=== PATIENT | female | born 1935 | race Caucasian/White ===

== ENCOUNTER 2019-02-16 12:06 | Inpatient (IN) | payer MEDICARE, OTHER ==
[2019-02-16 12:44] LABS: ABSOLUTE BASOPHILS # (AUTO) 0.1 10^3/uL (0.0-0.2); ABSOLUTE EOSINOPHILS # (AUTO) 0.2 10^3/uL (0.0-0.6); ABSOLUTE LYMPHOCYTES (AUTO) 1.6 10^3/uL (0.5-4.7); ABSOLUTE MONOCYTES (AUTO) 1.1 10^3/uL (0.1-1.4); ABSOLUTE NEUT (AUTO) 7.6 10^3/uL (1.7-8.2); BASOPHILS % (AUTO) 0.8 % (0-2); EOSINOPHILS % (AUTO) 2.3 % (0-6); HEMATOCRIT 25.4 % (36.0-47.0); HEMOGLOBIN 8.5 g/dL (12.0-15.5); LYMPHOCYTES % (AUTO) 15.4 % (13-45); MEAN CORPUSCULAR HEMOGLOBIN 30.2 pg (27.0-33.4); MEAN CORPUSCULAR HGB CONC 33.4 g/dL (32.0-36.0); MEAN CORPUSCULAR VOLUME 90 fl (80-97); MONOCYTES % (AUTO) 10.3 % (3-13); PLATELET COUNT 516 10^3/uL (150-450); RED BLOOD COUNT 2.81 10^6/uL (3.72-5.28); RED CELL DISTRIBUTION WIDTH 13.6 % (11.5-14.0); SEGMENTED NEUTROPHILS % (AUTO) 71.2 % (42-78); TOTAL CELLS COUNTED % (AUTO) 100 %; WHITE BLOOD COUNT 10.7 10^3/uL (4.0-10.5)
--- NOTE | 2019-02-16 12:58 | RADIOLOGY REPORT (SQ) ---
EXAM DESCRIPTION: CHEST SINGLE VIEW COMPLETED DATE/TIME: 02/16/2019 12:39 pm REASON FOR STUDY: bed 12 sob COMPARISON: None. EXAM PARAMETERS: NUMBER OF VIEWS: One view. TECHNIQUE: Single frontal radiographic view of the chest acquired. RADIATION DOSE: NA LIMITATIONS: None. FINDINGS: LUNGS AND PLEURA: Upper lobes are hyperlucent from obstructive disease. Few Herber lines at both lung bases worrisome for fluid overload or congestive failure. No pulmonary edema or dense consolidation worrisome for pneumonia. No pleural effusions or pneumotho rax. MEDIASTINUM AND HILAR STRUCTURES: No masses. Contour normal. HEART AND VASCULAR STRUCTURES: Heart normal in size. Normal vasculature. BONES: No acute findings. HARDWARE: None in the chest. OTHER: No other significant finding. IMPRESSION: Mild fluid overload or congestive failure TECHNICAL DOCUMENTATION: JOB ID: [id number] [employer]- All Rights Reserved Reading location - IP/workstation name: [email or web address]
[2019-02-16 13:10] LABS: ALANINE AMINOTRANSFERASE 25 U/L (9-52); ALBUMIN 3.2 g/dL (3.5-5.0); ALKALINE PHOSPHATASE 79 U/L (38-126); ANION GAP 7 (5-19); ASPARTATE AMINO TRANSFERASE 32 U/L (14-36); BILIRUBIN,DIRECT 0.3 mg/dL (0.0-0.4); BILIRUBIN,TOTAL 0.5 mg/dL (0.2-1.3); BLOOD UREA NITROGEN 14 mg/dL (7-20); CALCIUM 8.2 mg/dL (8.4-10.2); CARBON DIOXIDE 25 mmol/L (22-30); CHLORIDE 100 mmol/L (98-107); CREATINE KINASE 89 U/L (30-135); GLUCOSE 100 mg/dL (75-110); POTASSIUM 4.1 mmol/L (3.6-5.0); SODIUM 132.4 mmol/L (137-145); TOTAL PROTEIN 5.9 g/dL (6.3-8.2)
[2019-02-16 13:20] LABS: CREATINE KINASE MB 1.13 ng/mL (<4.55)
[2019-02-16 13:24] LABS: TROPONIN I < 0.012 ng/mL
[2019-02-16] MEDS ORDERED: DIPHENHYDRAMINE HCL 50 MG/ML VIAL IV ONE (14:56)
[2019-02-16] MEDS ORDERED: PROCHLORPERAZINE EDISYLATE INJ 10 MG/2 ML VIAL IV ONE (14:56)
[2019-02-16] MEDS ORDERED: MAGNESIUM SULFATE/D5W 1 GM/100 ML RTUPB IV ONE (14:56)
[2019-02-16 16:37] LABS: APPEARANCE,URINE CLEAR; BILIRUBIN,URINE NEGATIVE (NEGATIVE); COLOR,URINE STRAW; GLUCOSE, URINE NEGATIVE (NEGATIVE); KETONES,URINE NEGATIVE (NEGATIVE); LEUKOCYTE ESTERASE,URINE NEGATIVE (NEGATIVE); NITRITE,URINE NEGATIVE (NEGATIVE); PROTEIN,URINE NEGATIVE (NEGATIVE); UROBILINOGEN,URINE NEGATIVE mg/dL (<2.0)
[2019-02-16 16:38] LABS: URINE SPECIFIC GRAVITY 1.003
[2019-02-16] MEDS ORDERED: PANTOPRAZOLE SODIUM 40 MG VIAL IV ONE (17:10)
[2019-02-16] MEDS ORDERED: MAG HYDROX/AL HYDROX/SIMETH SUSP 30 ML UDCUP PO ONE (17:10)
--- NOTE | 2019-02-16 18:15 | ER Document Report ---
Entered by FREDERICK PETE SCRIBE 02/16/19 1454 Acting as scribe for:MEIR GARDINER MD ED Respiratory Problem - General Chief Complaint: Shortness Of Breath Stated Complaint: SHORTNESS OF BREATH Time Seen by Provider: 02/16/19 14:37 Primary Care Provider: DAVIS SEGAL MD [Primary Care Provider] - Follow up as needed Information source: Patient Notes: 83 year old female that presents to the emergency department today with complaints of "muscle cramps all over" this morning which has now eased off. Patient reports she has had a headache pretty consistently for the last few weeks along with a low-grade temperature reaching as high as 101 F. Patient states she has had intermittent dizziness and a non-productive cough. - Related Data Allergies/Adverse Reactions: ciprofloxacin Allergy (Verified 02/16/19 13:23) clindamycin Allergy (Verified 02/16/19 13:23) codeine Allergy (Verified 02/16/19 13:23) oxycodone [From OxyContin] Allergy (Verified 02/16/19 13:23) Penicillins Allergy (Verified 02/16/19 13:23) propoxyphene [From Darvon] Allergy (Verified 02/16/19 13:23) Sulfa (Sulfonamide Antibiotics) Allergy (Verified 02/16/19 13:23) trovafloxacin [From Trovan] Allergy (Verified 02/16/19 13:23) Past Medical History - General Information source: Patient - Social History Smoking Status: Current Every Day Smoker - Stopped smoking heavily in 1989. "closet smoker" now per family Cigarette use (# per day): Yes - Family reports she still sneaks cigarettes Chew tobacco use (# tins/day): No Smoking Education Provided: No Frequency of alcohol use: None Drug Abuse: None Lives with: Family Family History: Reviewed & Not Pertinent - Past Medical History Cardiac Medical History: Reports: Hx Coronary Artery Disease, Hx Heart Attack - 11/10/2018, Hx Hypercholesterolemia Pulmonary Medical History: Reports: Hx COPD Past Surgical History: Reports: Hx Appendectomy, Hx Cardiac Catheterization, Hx Cholecystectomy, Hx Coronary Stent, Hx Orthopedic Surgery - anterior cervical fusion, cataract sx, Hx Tubal Ligation, Other - Lung resection secondary to CA Review of Systems - Review of Systems Constitutional: See HPI, Fever EENT: See HPI, Nose congestion Cardiovascular: See HPI, Dizziness Respiratory: See HPI, Cough Gastrointestinal: No symptoms reported Genitourinary: No symptoms reported Female Genitourinary: No symptoms reported Musculoskeletal: See HPI, Muscle stiffness - cramping all over, Neck pain Skin: No symptoms reported Hematologic/Lymphatic: No symptoms reported Neurological/Psychological: See HPI, Headaches, Numbness - facial -: Yes All other systems reviewed and negative Physical Exam - Vital signs Vitals: Pulse Ox 94 02/16/19 12:07 - HEENT Head: Normocephalic, Atraumatic Eyes: Normal, Pale conjunctiva Pupils: PERRL Neck: Other - Left posterior cervical muscles are quite tender to palpate reproducing her left-sided headache. - Respiratory Respiratory status: No respiratory distress Chest status: Nontender - There is no tenderness to palpate the left anterior chest wall. Breath sounds: Rhonchi, Wheezing - There is some wheezes and rhonchi with forced cough. Patient states her breathing at this time is close to her baseline. - Cardiovascular Rhythm: Regular Heart sounds: Normal auscultation Murmur: No - Abdominal Inspection: Normal Distension: No distension Bowel sounds: Normal - Rectal Stool: Black - Stool Hemoccult was collected by the nurse. She reports the stool was black tarry appearing., See lab result - Stool Hemoccult testing was positive. - Back Back: Normal - Extremities General upper extremity: Normal inspection General lower extremity: Normal inspection - Neurological Neuro grossly intact: Yes - Psychological Associated symptoms: Normal affect, Normal mood - Skin Skin Temperature: Warm Skin Moisture: Dry Skin Color: Normal Course - Vital Signs Vital signs: Temp Pulse Resp BP Pulse Ox 97.9 F 18 113/77 95 02/16/19 12:23 02/16/19 16:01 02/16/19 16:01 02/16/19 16:01 - Laboratory Result Diagrams: 02/16/19 12:30 02/16/19 12:30 Laboratory results interpreted by me: 02/16/19 02/16/19 12:30 12:30 WBC 10.7 H RBC 2.81 L Hgb 8.5 L Hct 25.4 L Plt Count 516 H Sodium 132.4 L Calcium 8.2 L Total Protein 5.9 L Albumin 3.2 L - EKG Interpretation by Ar EKG shows normal: Sinus rhythm, [place], Intervals, ST-T Waves. abnormal: QRS Complexes - Line inferior Q waves Rate: Normal - 84 Rhythm: NSR [place]/QRS: RBBB - Incomplete right bundle branch block When compared to previous EKG there are: Previous EKG unavailable - Consults Ya Padgett NP Time consulted: 17:10 Consulted provider: will come to ER Critical Care Note - Critical Care Note Total time excluding time spent on procedures (mins): 35 Discharge - Discharge Clinical Impression: Acute exacerbation of chronic obstructive pulmonary disease (COPD), Blood loss anemia, Upper GI bleed Tension type headache Qualifiers: Headache chronicity pattern: unspecified pattern Intractability: not intractable Qualified Code(s): G44.209 - Tension-type headache, unspecified, not intractable Condition: Stable Disposition: ADMITTED INPATIENT Admitting Provider: Buffy (Hospitalist) Unit Admitted: Telemetry Referrals: DAVIS SEGAL MD [Primary Care Provider] - Follow up as needed Scribe Attestation: 02/16/19 17:35 I personally performed the services described in the documentation, reviewed and edited the documentation which was dictated to the scribe in my presence, and it accurately records my words and actions. I personally performed the services described in the documentation, reviewed and edited the documentation which was dictated to the scribe in my presence, and it accurately records my words and actions.
[2019-02-16] MEDS ORDERED: DEXTROSE 50%-WATER 25 GM/50 ML DISP.SYRIN IV PRN ×4 (19:12→20:42)
[2019-02-16] MEDS ORDERED: DEXTROSE 40% GEL 15 GM TUBE PO PRN ×4 (19:12→20:42)
[2019-02-16] MEDS ORDERED: GLUCAGON,HUMAN RECOMB 1 MG INJ SUBCUT PRN ×2 (19:12→20:42)
[2019-02-16] MEDS ORDERED: MAG HYDROX/AL HYDROX/SIMETH SUSP 30 ML UDCUP PO PRN (19:12)
--- NOTE | 2019-02-16 19:24 | EKG REPORT ---
SEVERITY:- ABNORMAL ECG - SINUS RHYTHM INCOMPLETE RIGHT BUNDLE BRANCH BLOCK : Confirmed by: Erica Gallo MD 16-Feb-2019 19:23:49
--- NOTE | 2019-02-16 19:31 | PDOC H&P ---
History of Present Illness Admission Date/PCP: 02/16/19 18:21 DAVIS SEGAL MD Patient complains of: shortness of breath History of Present Illness: PAXTON ROGER is a 83 year old female with a past medical history significant for COPD, recent CA with one stent placed in November of this year, GERD, and obesity who presented to the emergency department today with a complaint of progressively worsening shortness of breath, fatigue, and generalized weakness. Evaluation in the emergency department revealed mild anemia (hemoglobin 8.5), WBC 10.5, thombocytosis 516 (like r/t recent cath and stent placement), unremarkable chemistry with normal troponin and proBNP, Normal urine, but positive occult stool. The patient was noted to desaturate to 87% while resting on room air; she is not home O2 dependent. She is noted to have rhonchi and slight wheezing today. She is referred to the hospitalist service for admission and work-up of GI bleed and mild COPD exacerbation. Past Medical History Cardiac Medical History: Reports: Congestive Heart Failure, Coronary Artery Disease, Myocardial Infarction - 11/10/2018, Hyperlipidema Pulmonary Medical History: Reports: Asthma, Chronic Obstructive Pulmonary Disease (COPD) EENT Medical History: Reports: None Neurological Medical History: Reports: None Endocrine Medical History: Reports: Obesity Renal/ Medical History: Reports: None Malignancy Medical History: Reports: None GI Medical History: Reports: None Musculoskeltal Medical History: Reports: None Skin Medical History: Reports: None Psychiatric Medical History: Reports: None Traumatic Medical History: Reports: None Hematology: Reports: None Infectious Medical History: Reports: None Past Surgical History Past Surgical History: Reports: Appendectomy, Cardiac Catheterization, Cholecystectomy, Coronary Stent, Orthopedic Surgery - anterior cervical fusion, cataract sx, Tubal Ligation, Other - Lung resection secondary to CA Social History Information Source: Patient Lives with: Family Smoking Status: Former Smoker Frequency of Alcohol Use: None Hx Recreational Drug Use: No Drugs: None Hx Prescription Drug Abuse: No - Advance Directive Resuscitation Status: Full Code Surrogate healthcare decision maker:: Patient's children Family History Family History: Reviewed & Not Pertinent Parental Family History Reviewed: Yes Children Family History Reviewed: Yes Sibling(s) Family History Reviewed.: Yes Medication/Allergy Allergies/Adverse Reactions: ciprofloxacin Allergy (Verified 02/16/19 13:23) clindamycin Allergy (Verified 02/16/19 13:23) codeine Allergy (Verified 02/16/19 13:23) oxycodone [From OxyContin] Allergy (Verified 02/16/19 13:23) Penicillins Allergy (Verified 02/16/19 13:23) propoxyphene [From Darvon] Allergy (Verified 02/16/19 13:23) Sulfa (Sulfonamide Antibiotics) Allergy (Verified 02/16/19 13:23) trovafloxacin [From Trovan] Allergy (Verified 02/16/19 13:23) Review of Systems Constitutional: PRESENT: fatigue, weakness. ABSENT: chills, fever(s), he adache(s), weight gain, weight loss Eyes: ABSENT: visual disturbances Ears: ABSENT: hearing changes Cardiovascular: ABSENT: chest pain, dyspnea on exertion, edema, orthropnea, palpitations Respiratory: PRESENT: cough, dyspnea. ABSENT: hemoptysis Gastrointestinal: PRESENT: melena. ABSENT: abdominal pain, constipation, diarrhea, hematemesis, hematochezia, nausea, vomiting Genitourinary: ABSENT: dysuria, hematuria Musculoskeletal: ABSENT: joint swelling Integumentary: ABSENT: rash, wounds Neurological: ABSENT: abnormal gait, abnormal speech, confusion, dizziness, focal weakness, syncope Psychiatric: ABSENT: anxiety, depression, homidical ideation, suicidal ideation Endocrine: ABSENT: cold intolerance, heat intolerance, polydipsia, polyuria Hematologic/Lymphatic: ABSENT: easy bleeding, easy bruising Physical Exam Vital Signs: Temp Pulse Resp BP Pulse Ox 97.7 F 71 17 113/63 95 02/16/19 18:56 02/16/19 18:29 02/16/19 18:12 02/16/19 18:29 02/16/19 18:12 Intake & Output 02/15/19 02/16/19 02/17/19 06:59 06:59 06:59 Intake Total 100 Balance 100 Weight 70.76 kg General appearance: PRESENT: no acute distress, cooperative, obese, well- developed, well-nourished Head exam: PRESENT: atraumatic, normocephalic Eye exam: PRESENT: conjunctiva pink, EOMI, PERRLA. ABSENT: scleral icterus Ear exam: PRESENT: normal external ear exam Mouth exam: PRESENT: moist, tongue midline Neck exam: ABSENT: carotid bruit, JVD, lymphadenopathy, thyromegaly Respiratory exam: PRESENT: rhonchi, symmetrical, unlabored, wheezes. ABSENT: rales Cardiovascular exam: PRESENT: RRR, +S1, +S2. ABSENT: diastolic murmur, rubs, systolic murmur Pulses: PRESENT: normal dorsalis pedis pul Vascular exam: PRESENT: normal capillary refill GI/Abdominal exam: PRESENT: normal bowel sounds, soft. ABSENT: distended, guarding, mass, organolmegaly, rebound, tenderness Rectal exam: PRESENT: heme (+) stool Extremities exam: PRESENT: full ROM. ABSENT: calf tenderness, clubbing, pedal edema Neurological exam: PRESENT: alert, awake, oriented to person, oriented to place, oriented to time, oriented to situation, CN II-XII grossly intact. ABSENT: motor sensory deficit Psychiatric exam: PRESENT: appropriate affect, normal mood. ABSENT: homicidal ideation, suicidal ideation Skin exam: PRESENT: dry, intact, warm. ABSENT: cyanosis, rash Results Laboratory Results: 02/16/19 12:30 02/16/19 12:30 02/16/19 02/16/19 02/16/19 12:30 12:30 12:30 WBC 10.7 H RBC 2.81 L Hgb 8.5 L Hct 25.4 L MCV 90 MCH 30.2 MCHC 33.4 RDW 13.6 Plt Count 516 H Seg Neutrophils % 71.2 Lymphocytes % 15.4 Monocytes % 10.3 Eosinophils % 2.3 Basophils % 0.8 Absolute Neutrophils 7.6 Absolute Lymphocytes 1.6 Absolute Monocytes 1.1 Absolute Eosinophils 0.2 Absolute Basophils 0.1 Sodium 132.4 L Potassium 4.1 Chloride 100 Carbon Dioxide 25 Anion Gap 7 BUN 14 Creatinine 0.79 Est GFR ( Amer) > 60 Est GFR (Non-Af Amer) > 60 Glucose 100 Calcium 8.2 L Magnesium 1.8 Total Bilirubin 0.5 AST 32 ALT 25 Alkaline Phosphatase 79 Total Protein 5.9 L Albumin 3.2 L Urine Color Urine Appearance Urine pH Ur Specific [place] Urine Protein Urine Glucose (UA) Urine Ketones Urine Blood Urine Nitrite Ur Leukocyte Esterase Urine RBC (Auto) Blood Type Antibody Screen 02/16/19 02/16/19 16:21 17:56 WBC RBC Hgb Hct MCV MCH MCHC RDW Plt Count Seg Neutrophils % Lymphocytes % Monocytes % Eosinophils % Basophils % Absolute Neutrophils Absolute Lymphocytes Absolute Monocytes Absolute Eosinophils Absolute Basophils Sodium Potassium Chloride Carbon Dioxide Anion Gap BUN Creatinine Est GFR ( Amer) Est GFR (Non-Af Amer) Glucose Calcium Magnesium Total Bilirubin AST ALT Alkaline Phosphatase Total Protein Albumin Urine Color STRAW Urine Appearance CLEAR Urine pH 6.0 Ur Specific [place] 1.003 Urine Protein NEGATIVE Urine Glucose (UA) NEGATIVE Urine Ketones NEGATIVE Urine Blood NEGATIVE Urine Nitrite NEGATIVE Ur Leukocyte Esterase NEGATIVE Urine RBC (Auto) 1 Blood Type O POSITIVE Antibody Screen NEGATIVE 02/16/19 02/16/19 02/16/19 12:30 12:30 12:30 Creatine Kinase 89 CK-MB (CK-2) 1.13 Troponin I < 0.012 NT-Pro-B Natriuret Pep 284 Impressions: Chest X-Ray 02/16/19 12:07 IMPRESSION: Mild fluid overload or congestive failure Assessment and Plan - Diagnosis (1) Upper gastrointestinal hemorrhage Is this a current diagnosis for this admission?: Yes Plan: Patient reports 2-month history of melena; onset shortly after beginning aspirin and Brilinta for CA with cardiac stent x1 placed in November 2018. Hemoccult is positive. Hemoglobin 8.5. Patient is hemodynamically stable with normal blood pressure and heart rate. Orthostatic vital signs were normal. She does report increased fatigue, generalized weakness and shortness of breath with activity. Surgery has been consulted; appreciate their assistance. We will hold antiplatelets and DVT prophylaxis. Clear liquids tonight; n.p.o. after midnight. Protonix 40 mill grams IV daily. (2) Anemia due to blood loss Is this a current diagnosis for this admission?: Yes Plan: Management as above. (3) Acute exacerbation of chronic obstructive pulmonary disease Is this a current diagnosis for this admission?: Yes Plan: Patient with mild COPD exacerbation; noted to have rhonchi and slight wheeze on exam. She is not home O2 dependent. At rest, O2 sats really decreased to 87%. She is placed on duo nebs 3 times daily with albuterol as needed. P.o. prednisone. Supplemental oxygen as needed. We will resume her home medication regiment once reconciled. No indication for antibiotic therapy at this time. (4) GERD (gastroesophageal reflux disease) Is this a current diagnosis for this admission?: Yes Plan: Daily Protonix. - Time Time Spent with patient: 35 or more minutes Medications reviewed and adjusted accordingly: Yes Anticipated discharge: Home Within: within 48 hours - pending EGD/Colonoscopy
[2019-02-16] MEDS: ALBUTEROL SULFATE 0.083% NEB 2.5 MG/3 ML AMPUL NEB PRN (19:47)
[2019-02-16] MEDS: ACETAMINOPHEN 325 MG TABLET PO PRN (19:47)
[2019-02-16] MEDS: PREDNISONE 20 MG TABLET PO SCH (19:47)
--- NOTE | 2019-02-16 20:41 | PDOC CONSULTATION ---
Consultation Consult Date: 02/16/19 Attending physician:: MANAN CEE Provider Consulted: KEVIN GORDON Consult reason:: gi bleed History of Present Illness Admission Date/PCP: 02/16/19 18:21 DAVIS SEGAL MD Patient complains of: weakness, SOB History of Present Illness: PAXTON ROGER is a 83 year old female Presents the emergency department via ground rescue complaining a several month history of weakness, weight loss, anorexia, and dark-colored stools. Symptoms started after she had a heart attack, coronary artery stent placement and started on aspirin and 10 a inhibitor back in November 2018. Patient was seen in the emerge department where she was found to have exacerbation of COPD, melanotic stool, heme positive. Surgery was consulted for upper and lower endoscopy. Patient has history of gastroesophageal reflux disease, but no prior upper endoscopy. Last colonoscopy 10 years ago with polyps, no follow-up. There is no immediate family history of colon cancer. Past Medical History Cardiac Medical History: Reports: Congestive Heart Failure, Coronary Artery Disease, Myocardial Infarction - 11/10/2018, Hyperlipidema Pulmonary Medical History: Reports: Asthma, Chronic Obstructive Pulmonary Disease (COPD) EENT Medical History: Reports: None Neurological Medical History: Reports: None Endocrine Medical History: Reports: Obesity Renal/ Medical History: Reports: None Malignancy Medical History: Reports: None GI Medical History: Reports: None Musculoskeltal Medical History: Reports: None Skin Medical History: Reports: None Psychiatric Medical History: Reports: None Traumatic Medical History: Reports: None Hematology: Reports: None Infectious Medical History: Reports: None Past Surgical History Past Surgical History: Reports: Appendectomy, Cardiac Catheterization, Cholecystectomy, Coronary Stent, Orthopedic Surgery - anterior cervical fusion, cataract sx, Tubal Ligation, Other - 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, 1989, [place] Social History Lives with: Family Smoking Status: Former Smoker Frequency of Alcohol Use: None Hx Recreational Drug Use: No Drugs: None Hx Prescription Drug Abuse: No - Advance Directive Resuscitation Status: Full Code Family History Family History: None, Reviewed & Not Pertinent Parental Family History Reviewed: No Children Family History Reviewed: No Sibling(s) Family History Reviewed.: No Medication/Allergy Home Medications: Albuterol Sulfate [Ventolin 0.083% Neb 2.5 mg/3 ml Ampul] 1 vial NEB RTTIDP PRN 02/16/19 Aspirin [Aspirin 81 mg Chewable Tablet] 81 mg PO DAILY 02/16/19 Atorvastatin Calcium [Lipitor 80 mg Tablet] 80 mg PO QHS 02/16/19 Fluticasone Propionate [Flonase Nasal [place] 50 Mcg/[place] 16 gm] 1 spray NASL DAILY 02/16/19 Fluticasone/Salmeterol [Advair 250-50 Diskus 14 Dose/Diskus] 1 puff IH Q12 02/16/19 Lactobacillus Combo No.10 [Probiotic] 1 each PO DAILY 02/16/19 Multivitamin [One-A-Day Essential] 1 each PO DAILY 02/16/19 Ranitidine HCl [Zantac 150 mg Tablet] 150 mg PO BID 02/16/19 Ticagrelor [Brilinta 90 mg Tablet] 90 mg PO Q12 02/16/19 Tiotropium [place] [Spiriva Handihaler 5 Cap/Kit (18 Mcg/Cap)] 1 cap IH DAILY 02/16/19 Allergies/Adverse Reactions: ciprofloxacin Allergy (Verified 02/16/19 13:23) clindamycin Allergy (Verified 02/16/19 13:23) codeine Allergy (Verified 02/16/19 13:23) oxycodone [From OxyContin] Allergy (Verified 02/16/19 13:23) Penicillins Allergy (Verified 02/16/19 13:23) propoxyphene [From Darvon] Allergy (Verified 02/16/19 13:23) Sulfa (Sulfonamide Antibiotics) Allergy (Verified 02/16/19 13:23) trovafloxacin [From Trovan] Allergy (Verified 02/16/19 13:23) Review of Systems Constitutional: PRESENT: as per HPI, weakness, weight loss Eyes: ABSENT: visual disturbances Ears: ABSENT: hearing changes Psychiatric: ABSENT: anxiety, depression, homidical ideation, suicidal ideation Hematologic/Lymphatic: ABSENT: easy bleeding, easy bruising Physical Exam Vital Signs: Temp Pulse Resp BP Pulse Ox 97.7 F 71 17 113/63 95 02/16/19 18:56 02/16/19 18:29 02/16/19 18:12 02/16/19 18:29 02/16/19 18:12 Intake & Output 02/15/19 02/16/19 02/17/19 06:59 06:59 06:59 Intake Total 100 Balance 100 Weight 70.76 kg General appearance: PRESENT: other - Appears weak Head exam: PRESENT: normocephalic Eye exam: PRESENT: EOMI Mouth exam: PRESENT: dry mucosa Neck exam: PRESENT: full ROM Respiratory exam: PRESENT: rhonchi Pulses: PRESENT: normal carotid pulses Rectal exam: PRESENT: heme (+) stool, other Extremities exam: PRESENT: +1 edema Musculoskeletal exam: PRESENT: other Neurological exam: PRESENT: alert, awake, oriented to person, oriented to time, oriented to situation Psychiatric exam: PRESENT: appropriate affect Results Laboratory Results: 02/16/19 12:30 02/16/19 12:30 02/16/19 02/16/19 02/16/19 12:30 12:30 12:30 WBC 10.7 H RBC 2.81 L Hgb 8.5 L Hct 25.4 L MCV 90 MCH 30.2 MCHC 33.4 RDW 13.6 Plt Count 516 H Seg Neutrophils % 71.2 Lymphocytes % 15.4 Monocytes % 10.3 Eosinophils % 2.3 Basophils % 0.8 Absolute Neutrophils 7.6 Absolute Lymphocytes 1.6 Absolute Monocytes 1.1 Absolute Eosinophils 0.2 Absolute Basophils 0.1 Sodium 132.4 L Potassium 4.1 Chloride 100 Carbon Dioxide 25 Anion Gap 7 BUN 14 Creatinine 0.79 Est GFR ( Amer) > 60 Est GFR (Non-Af Amer) > 60 Glucose 100 Calcium 8.2 L Magnesium 1.8 Total Bilirubin 0.5 AST 32 ALT 25 Alkaline Phosphatase 79 Total Protein 5.9 L Albumin 3.2 L Urine Color Urine Appearance Urine pH Ur Specific [place] Urine Protein Urine Glucose (UA) Urine Ketones Urine Blood Urine Nitrite Ur Leukocyte Esterase Urine RBC (Auto) Blood Type Antibody Screen 02/16/19 02/16/19 16:21 17:56 WBC RBC Hgb Hct MCV MCH MCHC RDW Plt Count Seg Neutrophils % Lymphocytes % Monocytes % Eosinophils % Basophils % Absolute Neutrophils Absolute Lymphocytes Absolute Monocytes Absolute Eosinophils Absolute Basophils Sodium Potassium Chloride Carbon Dioxide Anion Gap BUN Creatinine Est GFR ( Amer) Est GFR (Non-Af Amer) Glucose Calcium Magnesium Total Bilirubin AST ALT Alkaline Phosphatase Total Protein Albumin Urine Color STRAW Urine Appearance CLEAR Urine pH 6.0 Ur Specific [place] 1.003 Urine Protein NEGATIVE Urine Glucose (UA) NEGATIVE Urine Ketones NEGATIVE Urine Blood NEGATIVE Urine Nitrite NEGATIVE Ur Leukocyte Esterase NEGATIVE Urine RBC (Auto) 1 Blood Type O POSITIVE Antibody Screen NEGATIVE 02/16/19 02/16/19 02/16/19 12:30 12:30 12:30 Creatine Kinase 89 CK-MB (CK-2) 1.13 Troponin I < 0.012 NT-Pro-B Natriuret Pep 284 Impressions: Chest X-Ray 02/16/19 12:07 IMPRESSION: Mild fluid overload or congestive failure Assessment & Plan - Diagnosis (1) Heme positive stool Is this a current diagnosis for this admission?: Yes Plan: Impression: Heme positive stools, blood loss anemia an 83-year-old female with constitutional symptoms, rule out occult gastrointestinal malignancy; bleeding may be related to 10 a inhibitor therapy and aspirin PLAN; 1. Hold aspirin and 10 a inhibitor 2. PEG elif'n tonight, plan for EGD/Colon, possible bx in am, Dr. Hunter 3. Dsicussed with pt. and family (4) Acute exacerbation of chronic obstructive pulmonary disease Is this a current diagnosis for this admission?: Yes (5) Anemia due to blood loss Is this a current diagnosis for this admission?: Yes - Time Time Spent: 30 to 50 Minutes Smoking Cessation Education: over 10 minutes Medications reviewed and adjusted accordingly: Yes Anticipated discharge: Home - Inpatient Certification Based on my medical assessment, after consideration of the patient's comorbidities, presenting symptoms, or acuity I expect that the services needed warrant INPATIENT care.: Yes I certify that my determination is in accordance with my understanding of Medicare's requirements for reasonable and necessary INPATIENT services [42 CFR 412.3e].: Yes Medical Necessity: Need for IV Antibiotics, Need for Surgery
[2019-02-16] MEDS ORDERED: PEG 3350/NA SULF,BICARB,CL/KCL 4000 ML PO ONE (21:00)
[2019-02-17] MEDS: IPRATROPIUM/ALBUTEROL 0.5-2.5 MG/3 ML AMPUL NEB SCH ×3 (00:39→15:42)
[2019-02-17 07:54] LABS: HEMATOCRIT 22.4 % (36.0-47.0); MEAN CORPUSCULAR HGB CONC 33.7 g/dL (32.0-36.0); MEAN CORPUSCULAR VOLUME 89 fl (80-97); PLATELET COUNT 493 10^3/uL (150-450); RED BLOOD COUNT 2.51 10^6/uL (3.72-5.28); RED CELL DISTRIBUTION WIDTH 13.3 % (11.5-14.0); WHITE BLOOD COUNT 8.5 10^3/uL (4.0-10.5)
[2019-02-17 08:02] LABS: ANION GAP 11 (5-19); BLOOD UREA NITROGEN 17 mg/dL (7-20); CALCIUM 8.1 mg/dL (8.4-10.2); CARBON DIOXIDE 26 mmol/L (22-30); CHLORIDE 98 mmol/L (98-107); GLUCOSE 130 mg/dL (75-110); POTASSIUM 4.1 mmol/L (3.6-5.0); SODIUM 135.1 mmol/L (137-145)
[2019-02-17 08:03] LABS: HEMOGLOBIN 7.5 g/dL (12.0-15.5)
[2019-02-17] MEDS ORDERED: NORMAL SALINE 250 ML IV PRN ×2 (09:17)
[2019-02-17] MEDS ORDERED: PANTOPRAZOLE SODIUM 40 MG VIAL IV SCH (10:00)
--- NOTE | 2019-02-17 10:20 | PDOC PROGRESS REPORT ---
Subjective Progress Note for:: 02/17/19 Subjective:: Generalized weakness. No chest pain. Had a small amount of blood when wiping after bowel prep. The bowel movements are mostly clear. Other than blood on the toilet paper no other signs of active gastrointestinal bleed with the bowel prep. Reason For Visit: GI BLEED Physical Exam Vital Signs: Temp Pulse Resp BP Pulse Ox 97.7 F 84 18 122/53 L 94 02/17/19 07:38 02/17/19 08:22 02/17/19 08:22 02/17/19 07:38 02/17/19 08:22 Intake & Output 02/16/19 02/17/19 02/18/19 06:59 06:59 06:59 Intake Total 100 Balance 100 Weight 73.6 kg General appearance: PRESENT: no acute distress, cooperative Respiratory exam: PRESENT: clear to auscultation zabrina Cardiovascular exam: PRESENT: RRR GI/Abdominal exam: PRESENT: other - Soft, nondistended, very mild right lower quadrant abdominal tenderness without peritoneal signs and no palpable masses. Results Laboratory Results: 02/17/19 07:17 02/17/19 07:17 02/16/19 02/16/19 02/16/19 12:30 12:30 12:30 WBC 10.7 H RBC 2.81 L Hgb 8.5 L Hct 25.4 L MCV 90 MCH 30.2 MCHC 33.4 RDW 13.6 Plt Count 516 H Seg Neutrophils % 71.2 Lymphocytes % 15.4 Monocytes % 10.3 Eosinophils % 2.3 Basophils % 0.8 Absolute Neutrophils 7.6 Absolute Lymphocytes 1.6 Absolute Monocytes 1.1 Absolute Eosinophils 0.2 Absolute Basophils 0.1 Sodium 132.4 L Potassium 4.1 Chloride 100 Carbon Dioxide 25 Anion Gap 7 BUN 14 Creatinine 0.79 Est GFR ( Amer) > 60 Est GFR (Non-Af Amer) > 60 Glucose 100 Calcium 8.2 L Magnesium 1.8 Total Bilirubin 0.5 AST 32 ALT 25 Alkaline Phosphatase 79 Total Protein 5.9 L Albumin 3.2 L Urine Color Urine Appearance Urine pH Ur Specific [place] Urine Protein Urine Glucose (UA) Urine Ketones Urine Blood Urine Nitrite Ur Leukocyte Esterase Urine RBC (Auto) Blood Type Antibody Screen 02/16/19 02/16/19 02/17/19 16:21 17:56 07:17 WBC 8.5 RBC 2.51 L Hgb 7.5 L Hct 22.4 L MCV 89 MCH 30.0 MCHC 33.7 RDW 13.3 Plt Count 493 H Seg Neutrophils % Lymphocytes % Monocytes % Eosinophils % Basophils % Absolute Neutrophils Absolute Lymphocytes Absolute Monocytes Absolute Eosinophils Absolute Basophils Sodium Potassium Chloride Carbon Dioxide Anion Gap BUN Creatinine Est GFR ( Amer) Est GFR (Non-Af Amer) Glucose Calcium Magnesium Total Bilirubin AST ALT Alkaline Phosphatase Total Protein Albumin Urine Color STRAW Urine Appearance CLEAR Urine pH 6.0 Ur Specific [place] 1.003 Urine Protein NEGATIVE Urine Glucose (UA) NEGATIVE Urine Ketones NEGATIVE Urine Blood NEGATIVE Urine Nitrite NEGATIVE Ur Leukocyte Esterase NEGATIVE Urine RBC (Auto) 1 Blood Type O POSITIVE Antibody Screen NEGATIVE 02/17/19 07:17 WBC RBC Hgb Hct MCV MCH MCHC RDW Plt Count Seg Neutrophils % Lymphocytes % Monocytes % Eosinophils % Basophils % Absolute Neutrophils Absolute Lymphocytes Absolute Monocytes Absolute Eosinophils Absolute Basophils Sodium 135.1 L Potassium 4.1 Chloride 98 Carbon Dioxide 26 Anion Gap 11 BUN 17 Creatinine 0.71 Est GFR ( Amer) > 60 Est GFR (Non-Af Amer) > 60 Glucose 130 H Calcium 8.1 L Magnesium Total Bilirubin AST ALT Alkaline Phosphatase Total Protein Albumin Urine Color Urine Appearance Urine pH Ur Specific [place] Urine Protein Urine Glucose (UA) Urine Ketones Urine Blood Urine Nitrite Ur Leukocyte Esterase Urine RBC (Auto) Blood Type Antibody Screen 02/16/19 02/16/19 02/16/19 12:30 12:30 12:30 Creatine Kinase 89 CK-MB (CK-2) 1.13 Troponin I < 0.012 NT-Pro-B Natriuret Pep 284 Impressions: Chest X-Ray 02/16/19 12:07 IMPRESSION: Mild fluid overload or congestive failure Assessment & Plan - Diagnosis (1) Anemia due to blood loss Is this a current diagnosis for this admission?: Yes Plan: Significant anemia on anticoagulation most likely due to blood loss. History of melena in the past several weeks. We will plan upper and lower endoscopy under LMAC today. We will also plan anoscopy with possible banding if she has significant hemorrhoids since she did note some blood on the toilet paper. I have discussed with the patient the risk and benefits of the procedure including risk of intestinal injury, bleeding, cardiopulmonary complications, anal sepsis, recurrence of hemorrhoids if banding is performed. With her severe anemia, will transfuse her prior to the procedure.
[2019-02-17] MEDS ORDERED: PHENYLEPHRINE HCL INJ/PF 10 MG/1 ML SDV ONE (10:54)
--- NOTE | 2019-02-17 13:01 | RADIOLOGY REPORT (SQ) ---
EXAM DESCRIPTION: CHEST SINGLE VIEW COMPLETED DATE/TIME: 02/17/2019 12:36 pm REASON FOR STUDY: preop COMPARISON: AP chest 02/16/2019 EXAM PARAMETERS: NUMBER OF VIEWS: One view. TECHNIQUE: Single frontal radiographic view of the chest acquired. RADIATION DOSE: NA LIMITATIONS: None. FINDINGS: LUNGS AND PLEURA: Surgical clips at the right hilum. No acute infiltrates. No pleural ef fusion or pneumothorax. MEDIASTINUM AND HILAR STRUCTURES: Surgical clips right hilum HEART AND VASCULAR STRUCTURES: Heart normal in size. Normal vasculature. BONES: No acute findings. HARDWARE: None in the chest. OTHER: No other significant finding. IMPRESSION: NO ACUTE RADIOGRAPHIC FINDING IN THE CHEST. TECHNICAL DOCUMENTATION: JOB ID: [id number] [employer]- All Rights Reserved Reading location - IP/workstation name: [email or web address]
[2019-02-17 13:25] LABS: INTERNATIONAL RATION (INR) 1.11; PROTHROMBIN TIME 14.3 SEC (11.4-15.4)
[2019-02-17 13:26] LABS: PARTIAL THROMBOPLASTIN TIME 29.7 SEC (23.5-35.8)
--- NOTE | 2019-02-17 16:49 | PDOC PROGRESS REPORT ---
Subjective Progress Note for:: 02/17/19 Subjective:: This is a 3 years old female patient with past medical history of COPD, CHF, coronary artery disease, obesity history of recent AR presented with chief complaint of shortness of breath. Patient endorses 2 months history of tarry stool. Her hemoglobin at admission was 8.5 today it dropped to 7.5 and her stool for occult blood is positive. Patient transfused 1 unit of packed RBC and she is taken to the OR for upper and lower endoscopy. Reason For Visit: GI BLEED Physical Exam Vital Signs: Temp Pulse Resp BP Pulse Ox 97.3 F 86 16 100/70 93 02/17/19 15:50 02/17/19 15:50 02/17/19 15:50 02/17/19 15:50 02/17/19 15:50 Intake & Output 02/16/19 02/17/19 02/18/19 06:59 06:59 06:59 Intake Total 100 350 Balance 100 350 Weight 73.6 kg General appearance: PRESENT: mild distress Eye exam: PRESENT: conjunctiva pale Mouth exam: PRESENT: dry mucosa Neck exam: ABSENT: carotid bruit, JVD, lymphadenopathy, thyromegaly Respiratory exam: PRESENT: clear to auscultation zabrina. ABSENT: rales, rhonchi, w heezes Cardiovascular exam: PRESENT: RRR. ABSENT: diastolic murmur, rubs, systolic murmur GI/Abdominal exam: PRESENT: normal bowel sounds, soft. ABSENT: distended, guarding, mass, organolmegaly, rebound, tenderness Neurological exam: PRESENT: alert, awake, oriented to person, oriented to place, oriented to time, oriented to situation Results Laboratory Results: 02/17/19 07:17 02/17/19 07:17 02/16/19 02/17/19 02/17/19 17:56 07: 07: WBC 8.5 RBC 2.51 L Hgb 7.5 L Hct 22.4 L MCV 89 MCH 30.0 MCHC 33.7 RDW 13.3 Plt Count 493 H Sodium 135.1 L Potassium 4.1 Chloride 98 Carbon Dioxide 26 Anion Gap 11 BUN 17 Creatinine 0.71 Est GFR ( Amer) > 60 Est GFR (Non-Af Amer) > 60 Glucose 130 H Calcium 8.1 L Blood Type O POSITIVE Antibody Screen NEGATIVE 02/16/19 02/16/19 02/16/19 12:30 12:30 12:30 Creatine Kinase 89 CK-MB (CK-2) 1.13 Troponin I < 0.012 NT-Pro-B Natriuret Pep 284 Impressions: Chest X-Ray 02/17/19 11:48 IMPRESSION: NO ACUTE RADIOGRAPHIC FINDING IN THE CHEST. Assessment and Plan - Diagnosis (1) Anemia due to gastrointestinal blood loss Is this a current diagnosis for this admission?: Yes Plan: Patient has been transfused with 1 unit of blood and she is scheduled for endoscopy (2) COPD exacerbation Is this a current diagnosis for this admission?: Yes Plan: Continue current regimen (3) Coronary artery disease Qualifiers: Coronary Disease-Associated Artery/Lesion type: [place] artery Is this a current diagnosis for this admission?: Yes Plan: No anginal symptoms (4) GERD (gastroesophageal reflux disease) Qualifiers: Esophagitis presence: without esophagitis Qualified Code(s): K21.9 - Gastro-esophageal reflux disease without esophagitis Is this a current diagnosis for this admission?: Yes Plan: Continue PPI
[2019-02-17] MEDS ORDERED: KETOROLAC TROMETHAMINE INJ/PF 30 MG/1 ML SDV ONE (17:47)
[2019-02-17] MEDS: PREDNISONE 20 MG TABLET PO SCH (17:57)
[2019-02-17] MEDS ORDERED: KETOROLAC TROMETHAMINE INJ/PF 30 MG/1 ML SDV IV ONE (18:00)
[2019-02-17] MEDS ORDERED: PROPOFOL INJ 200 MG/20 ML VIAL IV ONE ×2 (19:15→20:16)
[2019-02-17 19:17] LABS: ABSOLUTE BASOPHILS # (AUTO) 0.1 10^3/uL (0.0-0.2); ABSOLUTE MONOCYTES (AUTO) 1.4 10^3/uL (0.1-1.4); ABSOLUTE NEUT (AUTO) 16.1 10^3/uL (1.7-8.2); BASOPHILS % (AUTO) 0.4 % (0-2); HEMATOCRIT 30.6 % (36.0-47.0); LYMPHOCYTES % (AUTO) 5.2 % (13-45); MEAN CORPUSCULAR HEMOGLOBIN 29.9 pg (27.0-33.4); MEAN CORPUSCULAR HGB CONC 34.2 g/dL (32.0-36.0); MEAN CORPUSCULAR VOLUME 88 fl (80-97); MONOCYTES % (AUTO) 7.5 % (3-13); PLATELET COUNT 513 10^3/uL (150-450); RED CELL DISTRIBUTION WIDTH 14.6 % (11.5-14.0); SEGMENTED NEUTROPHILS % (AUTO) 86.9 % (42-78); TOTAL CELLS COUNTED % (AUTO) 100 %
[2019-02-17 19:19] LABS: WHITE BLOOD COUNT 18.5 10^3/uL (4.0-10.5)
[2019-02-17 19:20] LABS: HEMOGLOBIN 10.4 g/dL (12.0-15.5)
[2019-02-17] MEDS ORDERED: MIDAZOLAM 2 MG/2 ML INJ ONE (20:16)
--- NOTE | 2019-02-17 21:19 | Operative Report ---
Operative Report DATE OF SURGERY: 02/17/19 PREOPERATIVE DIAGNOSIS: Anemia POSTOPERATIVE DIAGNOSIS: Anemia. Small hiatal hernia. Diverticulosis of the sigmoid colon. Rectal polyps. OPERATION: Esophagogastroduodenoscopy. Colonoscopy. SURGEON: BELL GOMEZ ANESTHESIA: LMAC TISSUE REMOVED OR ALTERED: None COMPLICATIONS: None ESTIMATED BLOOD LOSS: None INTRAOPERATIVE FINDINGS: Small hiatal hernia. Otherwise normal esophagus stomach and duodenum. Redundant colon with multiple large sigmoid diverticuli. Small benign-appearing polyps in the rectum. Normal-appearing cecum, right colon, transverse colon, and descending colon. Unable to visualize one segment of bowel likely at the sigmoid descending colon junction. Small internal hemorrhoids with no stigmata of recent bleeding. PROCEDURE: Informed consent was obtained. Patient was brought to the operating room. Procedure was done under LMAC. Endoscope was passed via the patient's mouth into the second portion duodenum. The duodenum and the stomach appeared normal other than a small hiatal hernia. The esophagus appeared normal. No ulcerations and no masses were noted. Patient was repositioned. Digital rectal exam revealed no palpable perianal masses. Endoscope was passed via the patient's anus it was fed to the cecum. Patient's colon was redundant making this procedure difficult. The bowel prep was fair requiring some irrigation and aspiration to obtain adequate visualization. The cecum appeared normal. The ileocecal valve was clearly visualized. The right colon appeared normal. The transverse colon appeared normal. The descending colon appeared normal. The sigmoid colon was markedly redundant with multiple large diverticuli making visualization difficult. There was one section of colon that I had a very difficult time visualizing. This region likely was at the junction between the descending colon and the sigmoid colon. Due to redundancy and some debris in this area I could not clearly visualize this area despite multiple technical measures. It resisted insufflation in the area but I did not see any obvious strictures nor masses. Passing the scope through the sigmoid colon was hazardous due to the multiple large diverticuli. But no ulcerations and no masses and no blood was enco untered in the sigmoid colon. The mid to distal rectum had several small less than half centimeter sessile benign-appearing polyps. I did not think they were the culprit in her anemia and they were benign-appearing and with her need to be on anticoagulation I did not biopsy them. The scope was able to be retroflexed easily visualizing the distal rectum and the hemorrhoidal complexes. The inter nal hemorrhoidal complexes were small with no evidence of recent bleed. No source of bleed identified in the upper endoscopy. No definite source of her anemia found on colonoscopy although the very large multiple sigmoid diverticuli makes me suspicious that maybe she had a diverticular bleed in the past few weeks. I do not think she had hemorrhoidal bleeding. The only area of the colon I did not visualize well is likely near the descending colon sigmoid colon junction. With no definite source of bleed identified, I will have her undergo a barium enema tomorrow to try to visualize this section of her colon to make sure I did not miss a large friable mass in this area. If the barium enema is unremarkable, then we can attribute her anemia to perhaps a diverticular bleed several weeks ago versus a small bowel source. Evaluating the small bowel were require a small bowel follow series followed by capsule endoscopy. We would need a risk and compliance analytics director for this latter procedure. My recommendation would be to obtain the barium enema tomorrow and if unremarkable, allow the patient to eat and place her back on her anticoagulation since she had the recent cardiac stents. Observe her in the hospital for couple days after resumption of anticoagulation to make sure she is not bleeding then discharge patient home with follow-up with gastroenterology for the small bowel work-up. When she is discharged she should be on a stool softener. She will need follow-up as an outpatient to make sure she does not have recurrent bleeding. I had a long discussion with the patient's family concerning my findings and my recommendations. Of note if she does well in the next year and she is off of anticoagulation at that point, it would be worthwhile to have her undergo colonoscopy at that time to address the small rectal polyps.
[2019-02-17] MEDS: PANTOPRAZOLE SODIUM 40 MG VIAL IV SCH (21:50)
[2019-02-17] MEDS: ACETAMINOPHEN 325 MG TABLET PO PRN (22:13)
[2019-02-17] MEDS: ALBUTEROL SULFATE 0.083% NEB 2.5 MG/3 ML AMPUL NEB PRN (22:15)
[2019-02-18] MEDS ORDERED: RINGERS SOLUTION,LACTATED 1,000 ML IV PRN (00:09)
[2019-02-18] MEDS: IPRATROPIUM/ALBUTEROL 0.5-2.5 MG/3 ML AMPUL NEB SCH (00:23)
[2019-02-18] MEDS: ALBUTEROL SULFATE 0.083% NEB 2.5 MG/3 ML AMPUL NEB PRN (05:46)
[2019-02-18] MEDS ORDERED: LEVALBUTEROL HCL NEB 0.63 MG/3 ML AMPUL NEB PRN (06:13)
[2019-02-18 06:23] LABS: ARTERIAL BLOOD BASE EXCESS 1.6 mmol/L; ARTERIAL BLOOD H2CO3 1.28 mmol/L (1.05-1.35); ARTERIAL BLOOD HCO3 26.4 mmol/L (20-24); ARTERIAL BLOOD O2 SATURATION 94.8 % (94-98); ARTERIAL BLOOD PCO2 42.4 mmHg (35-45); ARTERIAL BLOOD PH 7.41 (7.35-7.45); ARTERIAL BLOOD PO2 73.1 mmHg (80-100); ARTERIAL BLOOD TOTAL CO2 27.7 mmol/L (21-25)
[2019-02-18 06:24] LABS: ARTERIAL BLOOD FIO2 28%
[2019-02-18] MEDS ORDERED: FUROSEMIDE INJ/PF 20 MG/2 ML SDV IV ONE (06:30)
[2019-02-18 07:14] LABS: HEMATOCRIT 28.4 % (36.0-47.0); HEMOGLOBIN 9.5 g/dL (12.0-15.5); MEAN CORPUSCULAR HEMOGLOBIN 29.6 pg (27.0-33.4); MEAN CORPUSCULAR HGB CONC 33.5 g/dL (32.0-36.0); MEAN CORPUSCULAR VOLUME 88 fl (80-97); PLATELET COUNT 485 10^3/uL (150-450); RED BLOOD COUNT 3.21 10^6/uL (3.72-5.28); RED CELL DISTRIBUTION WIDTH 14.4 % (11.5-14.0); WHITE BLOOD COUNT 22.7 10^3/uL (4.0-10.5)
[2019-02-18] MEDS: IPRATROPIUM BROMIDE 0.02% NEB 0.5 MG/2.5 ML AMPUL NEB SCH ×3 (08:10→23:55)
[2019-02-18] MEDS: LEVALBUTEROL HCL NEB 1.25 MG/3 ML AMPUL NEB SCH ×3 (08:10→23:55)
[2019-02-18] MEDS: BUDESONIDE NEB 0.5 MG/2 ML AMPUL NEB SCH ×2 (08:10→19:44)
[2019-02-18 08:26] LABS: ABSOLUTE LYMPHOCYTES# (MANUAL) 2.5 10^3/uL (0.5-4.7); ABSOLUTE MONOCYTES # (MANUAL) 0.7 10^3/uL (0.1-1.4); ANISOCYTOSIS SLIGHT; BAND NEUTROPHILS % (MANUAL) 1 % (3-5); BASOPHILS % (MANUAL) 0 % (0-2); EOSINOPHILS % (MANUAL) 1 % (0-6); LYMPHOCYTES % (MANUAL) 11 % (13-45); MONOCYTES % (MANUAL) 3 % (3-13); OVALOCYTES SLIGHT; PLATELET COMMENT ADEQUATE; POIKILOCYTOSIS SLIGHT; SEGMENTED NEUTROPHILS % (MAN) 84 % (42-78); TOTAL CELLS COUNTED 100
--- NOTE | 2019-02-18 08:40 | RADIOLOGY REPORT (SQ) ---
EXAM DESCRIPTION: CHEST SINGLE VIEW COMPLETED DATE/TIME: 02/18/2019 8:28 am REASON FOR STUDY: SOB COMPARISON: 02/17/2019 EXAM PARAMETERS: NUMBER OF VIEWS: One view. TECHNIQUE: Single frontal radiographic view of the chest acquired. RADIATION DOSE: NA LIMITATIONS: None. FINDINGS: LUNGS AND PLEURA: Stable chronic bilateral interstitial changes. No new airspace disease. Increased left basilar consolidation likely combination of atelectasis and mild to moderate effusio n. Trace right effusion likely. No pneumothorax. MEDIASTINUM AND HILAR STRUCTURES: No masses. Contour normal. HEART AND VASCULAR STRUCTURES: Enlarged cardiac silhouette, stable. Aortic atherosclerosis. BONES: Decreased mineralization. No acute findings. HARDWARE: None in the chest. OTHER: No other significant finding. IMPRESSION: Increased left basilar consolidation likely combination of atelectasis and mild to moder ate effusion. TECHNICAL DOCUMENTATION: JOB ID: [id number] [employer]- All Rights Reserved Reading location - IP/workstation name: [email or web address]
--- NOTE | 2019-02-18 08:44 | Progress Note ---
Provider Note Provider Note: pt seen with family present pt sleeping no reports of rectal bleeding pt to have BE today if no obvious masses in sigmoid pt could be discharged from surgery standpt and needs a f/u with outpt gi for repeat colonoscopy and possible capsule endoscopy. pt can be restarted on antiplt meds after BE.
[2019-02-18] MEDS: PREDNISONE 20 MG TABLET PO SCH (12:20)
[2019-02-18] MEDS: PANTOPRAZOLE SODIUM 40 MG VIAL IV SCH ×2 (12:21→21:17)
[2019-02-18 13:08] LABS: ARTERIAL BLOOD BASE EXCESS 2.8 mmol/L; ARTERIAL BLOOD H2CO3 1.35 mmol/L (1.05-1.35); ARTERIAL BLOOD HCO3 27.8 mmol/L (20-24); ARTERIAL BLOOD O2 SATURATION 98.6 % (94-98); ARTERIAL BLOOD PCO2 44.7 mmHg (35-45); ARTERIAL BLOOD PH 7.41 (7.35-7.45); ARTERIAL BLOOD PO2 131.5 mmHg (80-100); ARTERIAL BLOOD TOTAL CO2 29.2 mmol/L (21-25)
[2019-02-18 13:09] LABS: ARTERIAL BLOOD FIO2 2L
--- NOTE | 2019-02-18 14:49 | PDOC PROGRESS REPORT ---
Subjective Progress Note for:: 02/18/19 Subjective:: This is a 3 years old female patient with past medical history of COPD, CHF, coronary artery disease, obesity history of recent [place] presented with chief complaint of shortness of breath. Patient endorses 2 months history of tarry stool. Her hemoglobin at admission was 8.5 today it dropped to 7.5 and her stool for occult blood is positive. Patient transfused 1 unit of packed RBC and she is taken to the OR for upper and lower endoscopy. 02/18/2019: Patient seen and examined while she is resting in bed. She has mild respiratory distress and on auscultation she has fine crackles and wheezing on both lung fonseca basally. Saturday night patient has an episode of shortness of breath and hypotension and the colitis physician bolus her with fluid and put her on BiPAP. Yesterday patient undergone EGD and colonoscopy. Reportedly no source of bleeding identified in the upper endoscopy. No definite source of her anemia found on colonoscopy although she has large multiple sigmoid diverticuli which might be the source of bleeding. This morning patient also taken to radiology for barium enema with air-contrast. If it is negative we will start t he patient her diet and anticoagulation. Reason For Visit: BLOOD LOSS ANEMIA Physical Exam Vital Signs: Temp Pulse Resp BP Pulse Ox 98.9 F 89 20 112/54 L 94 02/18/19 08:00 02/18/19 14:00 02/18/19 08:13 02/18/19 08:00 02/18/19 08:13 Intake & Output 02/17/19 02/18/19 02/19/19 06:59 06:59 06:59 Intake Total 100 3340 Output Total 155 Balance 100 3185 Weight 73.6 kg 73.8 kg General appearance: PRESENT: mild distress Head exam: PRESENT: atraumatic Neck exam: ABSENT: carotid bruit, JVD, lymphadenopathy, thyromegaly Respiratory exam: PRESENT: rales, wheezes Cardiovascular exam: PRESENT: RRR. ABSENT: diastolic murmur, rubs, systolic m urmur GI/Abdominal exam: PRESENT: normal bowel sounds, soft. ABSENT: distended, guarding, mass, organolmegaly, rebound, tenderness Neurological exam: PRESENT: awake Results Laboratory Results: 02/18/19 06:30 02/17/19 07:17 02/17/19 02/18/1919 18:59 06:08 06:30 WBC 18.5 H D 22.7 H RBC 3.50 L 3.21 L Hgb 10.4 L D 9.5 L Hct 30.6 L 28.4 L MCV 88 88 MCH 29.9 29.6 MCHC 34.2 33.5 RDW 14.6 H 14.4 H Plt Count 513 H 485 H Seg Neutrophils % 86.9 H Not Reportable Lymphocytes % 5.2 L Not Reportable Monocytes % 7.5 Not Reportable Eosinophils % 0.0 Not Reportable Basophils % 0.4 Not Reportable Absolute Neutrophils 16.1 H Not Reportable Absolute Lymphocytes 1.0 Not Reportable Absolute Monocytes 1.4 Not Reportable Absolute Eosinophils 0.0 Not Reportable Absolute Basophils 0.1 Not Reportable Carbonic Acid 1.28 HCO3/H2CO3 Ratio 20:1 ABG pH 7.41 ABG pCO2 42.4 ABG pO2 73.1 L ABG HCO3 26.4 H ABG O2 Saturation 94.8 ABG Base Excess 1.6 FiO2 28% 02/18/19 12:50 WBC RBC Hgb Hct MCV MCH MCHC RDW Plt Count Seg Neutrophils % Lymphocytes % Monocytes % Eosinophils % Basophils % Absolute Neutrophils Absolute Lymphocytes Absolute Monocytes Absolute Eosinophils Absolute Basophils Carbonic Acid 1.35 HCO3/H2CO3 Ratio 20:1 ABG pH 7.41 ABG pCO2 44.7 ABG pO2 131.5 H ABG HCO3 27.8 H ABG O2 Saturation 98.6 H ABG Base Excess 2.8 FiO2 2L 02/16/19 02/16/19 02/16/19 12:30 12:30 12:30 Creatine Kinase 89 CK-MB (CK-2) 1.13 Troponin I < 0.012 NT-Pro-B Natriuret Pep 284 Impressions: Chest X-Ray 02/18/19 00:00 IMPRESSION: Increased left basilar consolidation likely combination of atelectasis and mild to moderate effusion. Assessment and Plan - Diagnosis (1) Anemia due to gastrointestinal blood loss Is this a current diagnosis for this admission?: Yes Plan: No source of bleeding identified on EGD. Her colonoscopy shows multiple large diverticuli which is suspected for as a source of bleeding. Her barium enema results pending. (2) COPD exacerbation Is this a current diagnosis for this admission?: Yes Plan: Continue current treatment (3) Coronary artery disease Qualifiers: Coronary Disease-Associated Artery/Lesion type: [place] artery Is this a current diagnosis for this admission?: Yes Plan: No anginal symptoms (4) GERD (gastroesophageal reflux disease) Qualifiers: Esophagitis presence: without esophagitis Qualified Code(s): K21.9 - Gastr o-esophageal reflux disease without esophagitis Is this a current diagnosis for this admission?: Yes Plan: Continue PPI
--- NOTE | 2019-02-18 14:53 | RADIOLOGY REPORT (SQ) ---
EXAM DESCRIPTION: BARIUM ENEMA W/AIR COMPLETED DATE/TIME: 02/18/2019 11:45 am REASON FOR STUDY: Look for source of anemia K29.80 DUODENITIS WITHOUT BLEEDING K22.11 ULCER OF ES OPHAGUS WITH BLEEDING COMPARISON: None. FLUOROSCOPY TIME: 3.1 minutes of fluoroscopy was used. 22 images saved to PACS. TECHNIQUE: Following retrograde filling of the colon with barium and air, fluoroscopic spot and over head imaging of the colon was obtained and saved to PACS. LIMITATIONS: None. FINDINGS: SHRUB GROWER KUB: Normal abdominal film with adequate bowel prep. CECUM: Cecum is mildly dilated and mobile, extending across the midline. No masses identified. ASCENDING COLON: Normal mucosa without intraluminal filling defects, intrinsic or extrinsic masses, o r lesions. TRANSVERSE COLON: Normal mucosa without intraluminal filling defects, intrinsic or extrinsic masses, or lesions. DESCENDING COLON: Normal mucosa without intraluminal filling defects, intrinsic or extrinsic masses, or lesions. There are few scattered diverticulum in the distal descending colon. SIGMOID COLON: Extensive diverticulosis with mild chronic luminal narrowing. No evidence of divertic ulitis. No mucosal lesions or masses are identified, although mucosal lesions are difficult to ident keenan with diverticulosis this extensive. RECTUM: Distends normally. There a few scattered mucosal filling defects which could represent retai duran fecal material or mucosal polyps, correlate with recent colonoscopy. POST EVAC: Moderate amount of retained contrast material throughout the colon. OTHER: No other significant finding. IMPRESSION: SIGMOID DIVERTICULOSIS DESCRIBED ABOVE. NO IDENTIFIABLE MASSES OR LESIONS CAN BE SEE N WITHIN THE SIGMOID COLON. MILDLY DILATED CECUM THAT IS MOBILE, EXTENDING ACROSS THE MIDLINE OF THE LOWER PELVIS. COMMENT: Quality ID [id number]: Final reports for procedures using fluoroscopy that document radiation exp osure indices, or exposure time and number of fluorographic images (if radiation exposure indices are not available) TECHNICAL DOCUMENTATION: JOB ID: [id number] [employer]- All Rights Reserved Reading location - IP/workstation name: [email or web address]
[2019-02-18] MEDS ORDERED: ALBUTEROL SULFATE 0.083% NEB 2.5 MG/3 ML AMPUL NEB PRN (16:24)
[2019-02-18] MEDS: FAMOTIDINE 20 MG TABLET PO SCH (17:45)
[2019-02-18] MEDS ORDERED: (PENDING PHARMACY ID) (Ranitidine Hcl [Zantac 150 Mg Tablet] 150 MG) PO SCH (18:00)
[2019-02-18] MEDS: TICAGRELOR 90 MG TABLET PO SCH (21:17)
[2019-02-18] MEDS: ATORVASTATIN CALCIUM 80 MG TABLET PO SCH (21:17)
[2019-02-18] MEDS ORDERED: (PENDING PHARMACY ID) (Fluticasone/Salmeterol 1 PUFF) IH SCH (22:00)
[2019-02-19] MEDS: FAMOTIDINE 20 MG TABLET PO SCH ×2 (05:18→17:55)
[2019-02-19] MEDS: ONDANSETRON 4 MG TAB.RAPDIS PO PRN ×2 (05:18→12:31)
[2019-02-19] MEDS: BUDESONIDE NEB 0.5 MG/2 ML AMPUL NEB SCH ×4 (08:42→19:55)
[2019-02-19] MEDS: LEVALBUTEROL HCL NEB 1.25 MG/3 ML AMPUL NEB SCH ×5 (08:42→23:39)
[2019-02-19] MEDS: IPRATROPIUM BROMIDE 0.02% NEB 0.5 MG/2.5 ML AMPUL NEB SCH ×5 (08:42→23:39)
[2019-02-19] MEDS ORDERED: LACTOBACILLUS COMBO NO 10 PO SCH (10:00)
[2019-02-19] MEDS: ACETAMINOPHEN 325 MG TABLET PO PRN (12:24)
[2019-02-19] MEDS: ASPIRIN 81 MG TABLET, CHEWABLE PO SCH (12:25)
[2019-02-19] MEDS: LACTOBACILLUS ACIDOPHILUS 250 MG TAB PO SCH (12:25)
[2019-02-19] MEDS: MULTIVITAMIN TABLET PO SCH (12:25)
[2019-02-19] MEDS: PREDNISONE 20 MG TABLET PO SCH (12:25)
[2019-02-19] MEDS: PANTOPRAZOLE SODIUM 40 MG VIAL IV SCH ×2 (12:26→22:08)
[2019-02-19] MEDS: FLUTICASONE NASAL SPRAY 50 MCG/SPRY 120 SPRAY/16 GM NASL SCH (12:29)
[2019-02-19] MEDS: TICAGRELOR 90 MG TABLET PO SCH ×2 (12:29→23:06)
[2019-02-19] MEDS: TIOTROPIUM BROMIDE DPI 5 CAP/KIT (18 MCG/CAP) IH SCH (12:29)
[2019-02-19] MEDS: FLUTICASONE/VILANTEROL 200-25 MCG/DOSE IH SCH (12:30)
[2019-02-19 13:32] LABS: HEMATOCRIT 27.9 % (36.0-47.0); HEMOGLOBIN 9.3 g/dL (12.0-15.5); MEAN CORPUSCULAR HEMOGLOBIN 29.3 pg (27.0-33.4); MEAN CORPUSCULAR HGB CONC 33.2 g/dL (32.0-36.0); MEAN CORPUSCULAR VOLUME 88 fl (80-97); PLATELET COUNT 429 10^3/uL (150-450); RED BLOOD COUNT 3.16 10^6/uL (3.72-5.28); RED CELL DISTRIBUTION WIDTH 14.7 % (11.5-14.0)
--- NOTE | 2019-02-19 13:44 | RADIOLOGY REPORT (SQ) ---
EXAM DESCRIPTION: CHEST SINGLE VIEW COMPLETED DATE/TIME: 02/19/2019 1:36 pm REASON FOR STUDY: increased o2 demand, elevated wbc COMPARISON: 02/18/2019 NUMBER OF VIEWS: One view. TECHNIQUE: Single frontal radiographic view of the chest acquired. LIMITATIONS: None. FINDINGS: LUNGS AND PLEURA: There are persistent small bilateral pleural effusions left greater than right. This is improved from yesterday. There is basilar atelectasis left greater than right. No pneumothorax or consolidation. MEDIASTINUM AND HILAR STRUCTURES: No masses. Contour normal. HEART AND VASCULAR STRUCTURES: Stable in appearance. BONES: No acute findings. HARDWARE: None in the chest. OTHER: No other significant finding. IMPRESSION: Small bilateral pleural effusions and basilar atelectasis left greater than right. Over all findings are slightly improved compared to prior exam. TECHNICAL DOCUMENTATION: JOB ID: [id number] [employer]- All Rights Reserved Reading location - IP/workstation name: [email or web address]
--- NOTE | 2019-02-19 13:45 | RADIOLOGY REPORT (SQ) ---
EXAM DESCRIPTION: KUB/ABDOMEN (SINGLE VIEW) COMPLETED DATE/TIME: 02/19/2019 1:36 pm REASON FOR STUDY: bloating, elevated wbc K29.80 DUODENITIS WITHOUT BLEEDING K22.11 ULCER OF ESOPHA LENNY WITH BLEEDING COMPARISON: None. NUMBER OF VIEWS: One view. TECHNIQUE: Supine radiographic image of the abdomen acquired. LIMITATIONS: None. FINDINGS: BOWEL GAS PATTERN: Normal bowel gas pattern. No dilated loops. There is contrast in the c olon from prior barium enema. Numerous diverticuli are noted. CALCIFICATIONS: No suspicious calcifications. SOFT TISSUES: No gross mass or suggestion of organomegaly. HARDWARE: None in the abdomen. BONES: No acute fracture. No worrisome bone lesions. OTHER: No other significant finding. IMPRESSION: Gas pattern is nonspecific. There is barium in the the colon from prior BE. Numerous d iverticuli are noted. TECHNICAL DOCUMENTATION: JOB ID: [id number] [employer]- All Rights Reserved Reading location - IP/workstation name: [email or web address]
[2019-02-19 13:49] LABS: ALANINE AMINOTRANSFERASE 34 U/L (9-52); ALKALINE PHOSPHATASE 71 U/L (38-126); ANION GAP 8 (5-19); ASPARTATE AMINO TRANSFERASE 54 U/L (14-36); BILIRUBIN,DIRECT 0.3 mg/dL (0.0-0.4); BILIRUBIN,TOTAL 0.5 mg/dL (0.2-1.3); BLOOD UREA NITROGEN 14 mg/dL (7-20); CALCIUM 8.1 mg/dL (8.4-10.2); CARBON DIOXIDE 27 mmol/L (22-30); CHLORIDE 97 mmol/L (98-107); GLUCOSE 154 mg/dL (75-110); POTASSIUM 4.1 mmol/L (3.6-5.0); SODIUM 132.1 mmol/L (137-145); TOTAL PROTEIN 5.6 g/dL (6.3-8.2)
[2019-02-19 13:57] LABS: ABSOLUTE LYMPHOCYTES# (MANUAL) 0.3 10^3/uL (0.5-4.7); ABSOLUTE MONOCYTES # (MANUAL) 1.5 10^3/uL (0.1-1.4); BASOPHILS % (MANUAL) 0 % (0-2); EOSINOPHILS % (MANUAL) 0 % (0-6); LYMPHOCYTES % (MANUAL) 1 % (13-45); MONOCYTES % (MANUAL) 5 % (3-13); SEGMENTED NEUTROPHILS % (MAN) 94 % (42-78); TOTAL CELLS COUNTED 100
[2019-02-19 14:00] LABS: ANISOCYTOSIS SLIGHT; OVALOCYTES SLIGHT; PLATELET COMMENT ADEQUATE; POIKILOCYTOSIS SLIGHT
[2019-02-19] MEDS ORDERED: DOXYCYCLINE HYCLATE 100 MG in DEXTROSE 5%-WATER 250 ML IV SCH (22:00)
[2019-02-19 22:07] LABS: APPEARANCE,URINE CLEAR; BILIRUBIN,URINE NEGATIVE (NEGATIVE); COLOR,URINE YELLOW; GLUCOSE, URINE NEGATIVE (NEGATIVE); KETONES,URINE NEGATIVE (NEGATIVE); LEUKOCYTE ESTERASE,URINE NEGATIVE (NEGATIVE); NITRITE,URINE NEGATIVE (NEGATIVE); PROTEIN,URINE NEGATIVE (NEGATIVE); URINE SPECIFIC GRAVITY 1.005; UROBILINOGEN,URINE NEGATIVE mg/dL (<2.0)
[2019-02-19] MEDS: ATORVASTATIN CALCIUM 80 MG TABLET PO SCH (23:06)
--- NOTE | 2019-02-19 23:49 | PDOC PROGRESS REPORT ---
Subjective Progress Note for:: 02/19/19 Subjective:: patient wants to go to cardiology appt 11am on saturday. case discussed with > 5 members or the family. she has small pustulent area when iv site was located in Left ac fossa. induration, limited redness, mild tenderness. will treat as cellulitis. temp did spike 100.8, and her wbc seems to be disproportionately high for oral steroids in her age/health. she reports overall feeling better than on admission. no wheeze. no signs of bleeding. Reason For Visit: BLOOD LOSS ANEMIA Physical Exam Vital Signs: Temp Pulse Resp BP Pulse Ox 100.8 F H 74 18 92/42 L 94 02/19/19 11:29 02/19/19 16:48 02/19/19 16:48 02/19/19 11:29 02/19/19 16:48 Intake & Output 02/18/19 02/19/19 02/20/19 06:59 06:59 06:59 Intake Total 3340 480 120 Output Total 155 4 Balance 3185 476 120 Weight 73.8 kg 74.2 kg General appearance: PRESENT: no acute distress, well-developed, well-nourished Head exam: PRESENT: atraumatic, normocephalic Eye exam: PRESENT: conjunctiva pink, EOMI, PERRLA. ABSENT: scleral icterus Ear exam: PRESENT: normal external ear exam Mouth exam: PRESENT: moist, tongue midline Neck exam: ABSENT: carotid bruit, JVD, lymphadenopathy, thyromegaly Respiratory exam: PRESENT: decreased breath sounds, prolonged expiratory phas, unlabored. ABSENT: rales, rhonchi, wheezes Cardiovascular exam: PRESENT: RRR. ABSENT: diastolic murmur, rubs, systolic murmur Pulses: PRESENT: normal dorsalis pedis pul Vascular exam: PRESENT: normal capillary refill GI/Abdominal exam: PRESENT: distended, normal bowel sounds, soft, other. ABSENT: guarding, mass, organolmegaly, rebound, tenderness Rectal exam: PRESENT: deferred Extremities exam: PRESENT: full ROM. ABSENT: calf tenderness, clubbing, pedal edema Neurological exam: PRESENT: alert, awake, oriented to person, oriented to place, oriented to time, oriented to situation, CN II-XII grossly intact. ABSENT: motor sensory deficit Psychiatric exam: PRESENT: appropriate affect, normal mood. ABSENT: homicidal ideation, suicidal ideation Skin exam: PRESENT: dry, intact, warm, other - small pustulent area < 5mm in L ac fosse.. ABSENT: cyanosis, rash Results Laboratory Results: 02/19/19 13:13 02/19/19 13:13 02/19/19 02/19/19 13:13 13:13 WBC 29.0 H RBC 3.16 L Hgb 9.3 L Hct 27.9 L MCV 88 MCH 29.3 MCHC 33.2 RDW 14.7 H Plt Count 429 Seg Neutrophils % Not Reportable Lymphocytes % Not Reportable Monocytes % Not Reportable Eosinophils % Not Reportable Basophils % Not Reportable Absolute Neutrophils Not Reportable Absolute Lymphocytes Not Reportable Absolute Monocytes Not Reportable Absolute Eosinophils Not Reportable Absolute Basophils Not Reportable Sodium 132.1 L Potassium 4.1 Chloride 97 L Carbon Dioxide 27 Anion Gap 8 BUN 14 Creatinine 0.92 Est GFR ( Amer) > 60 Est GFR (Non-Af Amer) 58 L Glucose 154 H Calcium 8.1 L Magnesium 1.9 Total Bilirubin 0.5 AST 54 H ALT 34 Alkaline Phosphatase 71 Total Protein 5.6 L Albumin 3.0 L 02/16/19 02/16/19 02/16/19 12:30 12:30 12:30 Creatine Kinase 89 CK-MB (CK-2) 1.13 Troponin I < 0.012 NT-Pro-B Natriuret Pep 284 Impressions: Barium Enema w/ Air Contrast, therapeutic 02/18/19 09:00 IMPRESSION: SIGMOID DIVERTICULOSIS DESCRIBED ABOVE. NO IDENTIFIABLE MASSES OR LESIONS CAN BE SEEN WITHIN THE SIGMOID COLON. MILDLY DILATED CECUM THAT IS MOBILE, EXTENDING ACROSS THE MIDLINE OF THE LOWER PELVIS. Chest X-Ray 02/19/19 00:00 IMPRESSION: Small bilateral pleural effusions and basilar atelectasis left greater than right. Overall findings are slightly improved compared to prior exam. KUB X-Ray 02/19/19 00:00 IMPRESSION: Gas pattern is nonspecific. There is barium in the the colon from prior BE. Numerous diverticuli are noted. Assessment and Plan - Diagnosis (1) History of [place] (myocardial infarction) Is this a current diagnosis for this admission?: No Plan: october 2018. follows with cardio 02/20 @ 11am. continue asa, statin, bb (2) Cellulitis Is this a current diagnosis for this admission?: Yes Plan: left ac joint. will give iv doxy followed by oral minocycline. anti-inflammatory effects should also cover respiratory infection. warm compresses (3) Anemia due to blood loss Is this a current diagnosis for this admission?: Yes (4) COPD exacerbation Is this a current diagnosis for this admission?: Yes Plan: improving. taper oral steroids. drop to 40mg po daily. taper on d/c. no wheeze. improving. - Time Time Spent with patient: 15-24 minutes Medications reviewed and adjusted accordingly: Yes Anticipated discharge: Home Within: within 48 hours - Inpatient Certification Based on my medical assessment, after consideration of the patient's comorbidit ies, presenting symptoms, or acuity I expect that the services needed warrant INPATIENT care.: Yes I certify that my determination is in accordance with my understanding of Me sherry's requirements for reasonable and necessary INPATIENT services [42 CFR 412.3e].: Yes
[2019-02-20] MEDS: ACETAMINOPHEN 325 MG TABLET PO PRN ×2 (00:08→18:03)
[2019-02-20] MEDS: ONDANSETRON 4 MG TAB.RAPDIS PO PRN ×2 (00:08→06:28)
[2019-02-20] MEDS: FAMOTIDINE 20 MG TABLET PO SCH ×2 (06:29→18:04)
[2019-02-20] MEDS: LEVALBUTEROL HCL NEB 1.25 MG/3 ML AMPUL NEB SCH ×2 (08:52→17:34)
[2019-02-20] MEDS: IPRATROPIUM BROMIDE 0.02% NEB 0.5 MG/2.5 ML AMPUL NEB SCH ×2 (08:52→17:34)
[2019-02-20] MEDS: BUDESONIDE NEB 0.5 MG/2 ML AMPUL NEB SCH ×2 (08:52→19:56)
[2019-02-20] MEDS ORDERED: FENTANYL CITRATE INJ/PF 100 MCG/2 ML AMPUL IV ONE (09:13)
[2019-02-20] MEDS ORDERED: DIPHENHYDRAMINE HCL 25 MG CAPSULE PO PRN (09:14)
[2019-02-20] MEDS ORDERED: DIPHENHYDRAMINE HCL 50 MG/ML VIAL IV PRN (09:14)
[2019-02-20] MEDS ORDERED: FENTANYL CITRATE INJ/PF 100 MCG/2 ML AMPUL IV PRN (09:19)
[2019-02-20 09:34] LABS: ABSOLUTE LYMPHOCYTES (AUTO) 0.6 10^3/uL (0.5-4.7); ABSOLUTE MONOCYTES (AUTO) 1.6 10^3/uL (0.1-1.4); ABSOLUTE NEUT (AUTO) 22.8 10^3/uL (1.7-8.2); BASOPHILS % (AUTO) 0.1 % (0-2); HEMATOCRIT 28.9 % (36.0-47.0); HEMOGLOBIN 9.5 g/dL (12.0-15.5); LYMPHOCYTES % (AUTO) 2.3 % (13-45); MEAN CORPUSCULAR HEMOGLOBIN 29.1 pg (27.0-33.4); MEAN CORPUSCULAR VOLUME 88 fl (80-97); MONOCYTES % (AUTO) 6.5 % (3-13); PLATELET COUNT 450 10^3/uL (150-450); RED BLOOD COUNT 3.27 10^6/uL (3.72-5.28); RED CELL DISTRIBUTION WIDTH 14.7 % (11.5-14.0); SEGMENTED NEUTROPHILS % (AUTO) 91.1 % (42-78); TOTAL CELLS COUNTED % (AUTO) 100 %
[2019-02-20 10:00] LABS: ABSOLUTE LYMPHOCYTES# (MANUAL) 0.5 10^3/uL (0.5-4.7); ABSOLUTE MONOCYTES # (MANUAL) 0.5 10^3/uL (0.1-1.4); BASOPHILS % (MANUAL) 0 % (0-2); EOSINOPHILS % (MANUAL) 0 % (0-6); LYMPHOCYTES % (MANUAL) 2 % (13-45); MONOCYTES % (MANUAL) 2 % (3-13); SEGMENTED NEUTROPHILS % (MAN) 96 % (42-78); TOTAL CELLS COUNTED 100
[2019-02-20] MEDS ORDERED: VANCOMYCIN HCL INJ 1000 MG VIAL IV SCH (10:00)
[2019-02-20 10:01] LABS: ANISOCYTOSIS SLIGHT; HYPOCHROMASIA SLIGHT; OVALOCYTES SLIGHT
[2019-02-20 10:02] LABS: PLATELET COMMENT ADEQUATE; PLATELET LARGE PRESENT
[2019-02-20 10:20] LABS: ERYTHROCYTE SEDIMENTATION RATE 89 mm/hr (0-30)
[2019-02-20] MEDS: PANTOPRAZOLE SODIUM 40 MG VIAL IV SCH (10:45)
[2019-02-20] MEDS: CEFEPIME 1 GM/D5W RTU 1 GM/50 ML RTUPB IV SCH ×2 (10:51→22:22)
[2019-02-20] MEDS: FLUTICASONE NASAL SPRAY 50 MCG/SPRY 120 SPRAY/16 GM NASL SCH (10:53)
[2019-02-20] MEDS: FLUTICASONE/VILANTEROL 200-25 MCG/DOSE IH SCH (10:54)
[2019-02-20] MEDS: LACTOBACILLUS ACIDOPHILUS 250 MG TAB PO SCH (10:54)
[2019-02-20] MEDS: ASPIRIN 81 MG TABLET, CHEWABLE PO SCH (10:55)
[2019-02-20] MEDS: MULTIVITAMIN TABLET PO SCH (10:55)
[2019-02-20] MEDS: PREDNISONE 20 MG TABLET PO SCH (10:55)
[2019-02-20] MEDS: TIOTROPIUM BROMIDE DPI 5 CAP/KIT (18 MCG/CAP) IH SCH (10:57)
[2019-02-20] MEDS: TICAGRELOR 90 MG TABLET PO SCH ×2 (10:59→22:25)
--- NOTE | 2019-02-20 11:48 | RADIOLOGY REPORT (SQ) ---
EXAM DESCRIPTION: KUB/ABDOMEN (SINGLE VIEW) COMPLETED DATE/TIME: Move 02/19/2019 02/20/2019 11:30 am REASON FOR STUDY: eval residual barium and increased abd pain COMPARISON: None. NUMBER OF VIEWS: One view. TECHNIQUE: Supine radiographic image of the abdomen acquired. LIMITATIONS: None. FINDINGS: BOWEL GAS PATTERN: Residual barium from the cecum to the rectum. Slight decrease in retai duran barium since yesterday. Sigmoid diverticulosis. CALCIFICATIONS: No suspicious calcifications. SOFT TISSUES: No gross mass or suggestion of organomegaly. HARDWARE: None. BONES: No bone lesions or fracture. OTHER: No other significant finding. IMPRESSION: Residual barium with interval evacuation compared to yesterday. Reading location - IP/workstation name: [email or web address]
[2019-02-20] MEDS ORDERED: ONDANSETRON 4 MG TAB.RAPDIS PO PRN (12:56)
[2019-02-20] MEDS: VANCOMYCIN HCL 1,250 MG in DEXTROSE 5%-WATER 250 ML IV SCH (13:12)
[2019-02-20] MEDS ORDERED: MAGNESIUM CITRATE 296 ML BOTTLE PO ONE (14:30)
--- NOTE | 2019-02-20 16:25 | RADIOLOGY REPORT (SQ) ---
EXAM DESCRIPTION: VENOUS BILATERAL LOWER COMPLETED DATE/TIME: 02/20/2019 4:16 pm REASON FOR STUDY: evaluate for clot K29.80 DUODENITIS WITHOUT BLEEDING K22.11 ULCER OF ESOPHAGUS W ITH BLEEDING COMPARISON: None. TECHNIQUE: Dynamic and static ford scale and color images acquired of both lower extremity venous sy stems. Selected spectral images acquired with additional compression and augmentation maneuvers. Imag es stored on PACS. LIMITATIONS: None. FINDINGS: RIGHT LEG COMMON FEMORAL AND FEMORAL: Normal phasicity, compression and augmentation. No visualized echogenic m aterial on ford scale. No defects on color images. POPLITEAL: Normal compression and augmentation. No visualized echogenic material on ford scale. No de fects on color images. CALF VESSELS: Normal compression and augmentation. No visualized echogenic material on ford scale. No defects on color image. GSV AND SSV: Normal compression. No visualized echogenic material on ford scale. No defects on color images. ANY DEEP VENOUS INSUFFICIENCY: Not evaluated. ANY EVIDENCE OF POPLITEAL CYST: No. OTHER: No other significant finding. LEFT LEG COMMON FEMORAL AND FEMORAL: Normal phasicity, compression and augmentation. No visualized echogenic m aterial on ford scale. No defects on color images. POPLITEAL: Normal compression and augmentation. No visualized echogenic material on ford scale. No de fects on color images. CALF VESSELS: Normal compression and augmentation. No visualized echogenic material on ford scale. No defects on color images. GSV AND SSV: Normal compression. No visualized echogenic material on ford scale. No defects on color images. ANY DEEP VENOUS INSUFFICIENCY: Not evaluated. ANY EVIDENCE POPLITEAL CYST: No. OTHER: No other significant finding. IMPRESSION: NO EVIDENCE DVT OR SVT IN EITHER LEG. TECHNICAL DOCUMENTATION: JOB ID: [id number] [employer]- All Rights Reserved Reading location - IP/workstation name: [email or web address]
--- NOTE | 2019-02-20 16:29 | PDOC PROGRESS REPORT ---
Subjective Progress Note for:: 02/20/19 Subjective:: UNABLE TO BE DC TODAY. PT REPORTS PAIN IN ABDOMEN. UNABLE TO HAVE CT DUE EXCESS BARIUM IN COLON. ORDER ENEMAS AND MAG CITRATE FOR TODAY. REPEAT KUB TOMORROW TO SEE IF CT ABD WILL BE POSSIBLE. NO BLEEDING. EXCESSIVE PAIN REPORTED BY FAMILY. PATIENTS HR WAS 70-80 AT THAT TIME. SHE DOES LOOK OR SEEM TO FEEL WORSE. NOT JOKING AND SMILING LIKE YESTERDAY. WBC TRENDING DOWN. NO FEVERS. ABX BROADENED TO COVER DIVERTICULITIS IF PRESENT. NOT A SURGICAL ABDOMEN AT THIS TIME. Reason For Visit: BLOOD LOSS ANEMIA Physical Exam Vital Signs: Temp Pulse Resp BP Pulse Ox 99.4 F 76 17 120/57 L 95 02/20/19 08:02 02/20/19 08:02 02/20/19 08:02 02/20/19 08:02 02/20/19 08:54 Intake & Output 02/19/19 02/20/19 02/21/19 06:59 06:59 06:59 Intake Total 480 670 300 Output Total 4 400 300 Balance 476 270 0 Weight 74.2 kg 75.5 kg General appearance: PRESENT: no acute distress, well-developed, well-nourished Head exam: PRESENT: atraumatic, normocephalic Eye exam: PRESENT: conjunctiva pink, EOMI, PERRLA. ABSENT: scleral icterus Ear exam: PRESENT: normal external ear exam Mouth exam: PRESENT: moist, tongue midline Neck exam: ABSENT: carotid bruit, JVD, lymphadenopathy, thyromegaly Respiratory exam: PRESENT: clear to auscultation zabrina. ABSENT: rales, rhonchi, wheezes Cardiovascular exam: PRESENT: RRR. ABSENT: diastolic murmur, rubs, systolic murmur Pulses: PRESENT: normal dorsalis pedis pul Vascular exam: PRESENT: normal capillary refill GI/Abdominal exam: PRESENT: normal bowel sounds, soft, tenderness. ABSENT: distended, guarding, mass, organolmegaly, rebound Rectal exam: PRESENT: deferred Extremities exam: PRESENT: full ROM. ABSENT: calf tenderness, clubbing, pedal edema Neurological exam: PRESENT: alert, awake, oriented to person, oriented to place, oriented to time, oriented to situation, CN II-XII grossly intact. ABSENT: motor sensory deficit Psychiatric exam: PRESENT: appropriate affect, normal mood. ABSENT: homicidal ideation, suicidal ideation Skin exam: PRESENT: dry, intact, warm. ABSENT: cyanosis, rash Results Laboratory Results: 02/20/19 09:19 02/19/19 13:13 02/19/19 02/20/19 02/20/19 20:52 09:19 09:19 WBC 25.0 H RBC 3.27 L Hgb 9.5 L Hct 28.9 L MCV 88 MCH 29.1 MCHC 33.0 RDW 14.7 H Plt Count 450 Seg Neutrophils % 91.1 H Lymphocytes % 2.3 L Monocytes % 6.5 Eosinophils % 0.0 Basophils % 0.1 Absolute Neutrophils 22.8 H Absolute Lymphocytes 0.6 Absolute Monocytes 1.6 H Absolute Eosinophils 0.0 Absolute Basophils 0.0 C-Reactive Protein 196.5 H Urine Color YELLOW Urine Appearance CLEAR Urine pH 6.0 Ur Specific Picher 1.005 Urine Protein NEGATIVE Urine Glucose (UA) NEGATIVE Urine Ketones NEGATIVE Urine Blood SMALL H Urine Nitrite NEGATIVE Ur Leukocyte Esterase NEGATIVE Urine WBC (Auto) 0 02/16/19 02/16/19 02/16/19 12:30 12:30 12:30 Creatine Kinase 89 CK-MB (CK-2) 1.13 Troponin I < 0.012 NT-Pro-B Natriuret Pep 284 Impressions: Barium Enema w/ Air Contrast, therapeutic 02/18/19 09:00 IMPRESSION: SIGMOID DIVERTICULOSIS DESCRIBED ABOVE. NO IDENTIFIABLE MASSES OR LESIONS CAN BE SEEN WITHIN THE SIGMOID COLON. MILDLY DILATED CECUM THAT IS MOBILE, EXTENDING ACROSS THE MIDLINE OF THE LOWER PELVIS. Chest X-Ray 02/19/19 00:00 IMPRESSION: Small bilateral pleural effusions and basilar atelectasis left greater than right. Overall findings are slightly improved compared to prior exam. KUB X-Ray 02/20/19 10:49 IMPRESSION: Residual barium with interval evacuation compared to yesterday. Assessment and Plan - Diagnosis (1) History of [place] (myocardial infarction) Is this a current diagnosis for this admission?: No Plan: october 2018. follows with cardio. could not make today's appt due to worsening. continue asa, statin, bb. (2) Cellulitis Is this a current diagnosis for this admission?: Yes Plan: left ac joint. not overly convincing, but no signs of infxn to explain wbc. cxr improving. ua clear. bc showed gram +. started on doxy and was planning on moving to minocycline on d/c. unable to d/c today. abx broadened to cover possible diverticulitis (3) Anemia due to blood loss Is this a current diagnosis for this admission?: Yes Plan: s/p egd, colonoscopy, and barium enema. needs to f/u with GI (dr chaudhary?) on d/c. consider re-consulting surgery to evaluate abdomen. fleets enema and mag citrate to move barium alone. gentle fluids. would like to ct abdomen. no ongoing blood loss. surgery felt diverticulosis was most likely cause (4) COPD exacerbation Is this a current diagnosis for this admission?: Yes - Time Time Spent with patient: 15-24 minutes Medications reviewed and adjusted accordingly: Yes Anticipated discharge: Home with Homehealth - Inpatient Certification Based on my medical assessment, after consideration of the patient's comorbidities, presenting symptoms, or acuity I expect that the services needed warrant INPATIENT care.: Yes I certify that my determination is in accordance with my understanding of Medicare's requirements for reasonable and necessary INPATIENT services [42 CFR 412.3e].: Yes - Plan Summary Plan Summary: monitor abdomen. get proper abx. work on safe d/c
[2019-02-20] MEDS: NORMAL SALINE 1000 ML 1,000 ML IV PRN (18:05)
[2019-02-20] MEDS: ATORVASTATIN CALCIUM 80 MG TABLET PO SCH (22:25)
[2019-02-21] MEDS: LEVALBUTEROL HCL NEB 1.25 MG/3 ML AMPUL NEB SCH ×3 (00:06→16:06)
[2019-02-21] MEDS: IPRATROPIUM BROMIDE 0.02% NEB 0.5 MG/2.5 ML AMPUL NEB SCH ×3 (00:06→16:06)
[2019-02-21] MEDS: NORMAL SALINE 1000 ML 1,000 ML IV PRN ×2 (03:22→20:54)
[2019-02-21] MEDS ORDERED: FENTANYL CITRATE INJ/PF 100 MCG/2 ML AMPUL IV PRN (05:00)
[2019-02-21 05:48] LABS: HEMATOCRIT 28.3 % (36.0-47.0); HEMOGLOBIN 9.3 g/dL (12.0-15.5); MEAN CORPUSCULAR VOLUME 88 fl (80-97); PLATELET COUNT 480 10^3/uL (150-450); RED BLOOD COUNT 3.21 10^6/uL (3.72-5.28); RED CELL DISTRIBUTION WIDTH 14.4 % (11.5-14.0); WHITE BLOOD COUNT 25.2 10^3/uL (4.0-10.5)
[2019-02-21] MEDS ORDERED: MORPHINE SULFATE 10 MG/ML INJ IV PRN ×3 (05:59→20:06)
[2019-02-21 06:10] LABS: ALANINE AMINOTRANSFERASE 46 U/L (9-52); ALBUMIN 2.9 g/dL (3.5-5.0); ALKALINE PHOSPHATASE 86 U/L (38-126); ANION GAP 5 (5-19); ASPARTATE AMINO TRANSFERASE 40 U/L (14-36); BILIRUBIN,DIRECT 0.3 mg/dL (0.0-0.4); BILIRUBIN,TOTAL 0.3 mg/dL (0.2-1.3); BLOOD UREA NITROGEN 13 mg/dL (7-20); CALCIUM 8.1 mg/dL (8.4-10.2); CARBON DIOXIDE 34 mmol/L (22-30); CHLORIDE 98 mmol/L (98-107); GLUCOSE 97 mg/dL (75-110); POTASSIUM 4.4 mmol/L (3.6-5.0); SODIUM 137.2 mmol/L (137-145); TOTAL PROTEIN 5.6 g/dL (6.3-8.2)
[2019-02-21] MEDS: FAMOTIDINE 20 MG TABLET PO SCH ×2 (06:17→17:17)
[2019-02-21 06:23] LABS: ABSOLUTE MONOCYTES # (MANUAL) 1.3 10^3/uL (0.1-1.4); BASOPHILS % (MANUAL) 0 % (0-2); EOSINOPHILS % (MANUAL) 0 % (0-6); LYMPHOCYTES % (MANUAL) 8 % (13-45); MONOCYTES % (MANUAL) 5 % (3-13); SEGMENTED NEUTROPHILS % (MAN) 87 % (42-78); TOTAL CELLS COUNTED 100
[2019-02-21 06:24] LABS: ANISOCYTOSIS 1+; PLATELET COMMENT INCREASED
[2019-02-21 06:42] LABS: ERYTHROCYTE SEDIMENTATION RATE 105 mm/hr (0-30)
[2019-02-21 07:02] LABS: C-REACTIVE PROTEIN 204.3 mg/L (<10.0)
[2019-02-21] MEDS ORDERED: PROMETHAZINE HCL INJ 25 MG/1 ML VIAL IV PRN (08:58)
[2019-02-21] MEDS: BUDESONIDE NEB 0.5 MG/2 ML AMPUL NEB SCH ×2 (09:09→19:31)
[2019-02-21] MEDS: ASPIRIN 81 MG TABLET, CHEWABLE PO SCH (10:00)
[2019-02-21] MEDS: PREDNISONE 20 MG TABLET PO SCH (10:00)
[2019-02-21] MEDS: MAG HYDROX/AL HYDROX/SIMETH SUSP 30 ML UDCUP PO PRN (11:41)
--- NOTE | 2019-02-21 11:41 | Progress Note Acknowledgement ---
Progress Note Acknowledgement Progess Note Acknowledgement: I, the undersigned member of the medical staff with appropriate privileges and with supervisory authority over Darian Tovar, a [facility] allied health professional, acknowledge that I have reviewed the progress notes entered on this patient, and in my professional judgment believe that the assessment made and/or any care evidenced was appropriate
--- NOTE | 2019-02-21 12:23 | RADIOLOGY REPORT (SQ) ---
EXAM DESCRIPTION: CT HEAD WITHOUT COMPLETED DATE/TIME: 02/21/2019 12:11 pm REASON FOR STUDY: CVA symptoms K29.80 DUODENITIS WITHOUT BLEEDING K22.11 ULCER OF ESOPHAGUS WITH B LEEDING COMPARISON: None. TECHNIQUE: Axial images acquired through the brain without intravenous contrast. Images reviewed wi th bone, brain and subdural windows. Additional sagittal and coronal reconstructions were generated. Images stored on PACS. All CT scanners at this facility use dose modulation, iterative reconstruction, and/or weight based d osing when appropriate to reduce radiation dose to as low as reasonably achievable (ALARA). [facility]: Dose Right [facility]: CareDose [facility]: Dose Right [facility]: Teradose 4D [facility]: Vertigo RADIATION DOSE: CT Rad equipment meets quality standard of care and radiation dose reduction techniq ues were employed. CTDIvol: 53.2 mGy. DLP: 1044 mGy-cm.mGy. LIMITATIONS: None. FINDINGS: VENTRICLES: Prominent. CEREBRUM: No masses. No hemorrhage. No midline shift. Areas of low density in the white matter mos t likely due to chronic micro-vascular ischemic change. No evidence for acute infarction. CEREBELLUM: No masses. No hemorrhage. No alteration of density. No evidence for acute infarction. EXTRAAXIAL SPACES: Age-related involutional change. No fluid collections. No masses. ORBITS AND GLOBE: No intra- or extraconal masses. Normal contour of globe without masses. CALVARIUM: No fracture. PARANASAL SINUSES: No fluid or mucosal thickening. SOFT TISSUES: No mass or hematoma. OTHER: No other significant finding. IMPRESSION: CHRONIC CHANGES OF ATROPHY AND MICROVASCULAR ISCHEMIA. NO ACUTE PROCESS. EVIDENCE OF ACUTE STROKE: NO. TECHNICAL DOCUMENTATION: JOB ID: [id number] Quality ID # [id number]: Final reports with documentation of one or more dose reduction techniques (e.g., Au tomated exposure control, adjustment of the mA and/or kV according to patient size, use of iterative reconstruction technique) 2010 [employer]- All Rights Reserved Reading location - IP/workstation name: [email or web address]
[2019-02-21] MEDS: CEFEPIME 1 GM/D5W RTU 1 GM/50 ML RTUPB IV SCH ×2 (12:24→22:19)
--- NOTE | 2019-02-21 12:25 | RADIOLOGY REPORT (SQ) ---
EXAM DESCRIPTION: KUB/ABDOMEN (SINGLE VIEW) COMPLETED DATE/TIME: 02/21/2019 8:39 am REASON FOR STUDY: check for barium so she can have CT abd COMPARISON: 02/20/2019 NUMBER OF VIEWS: One view. TECHNIQUE: Supine radiographic image of the abdomen acquired. LIMITATIONS: None. FINDINGS: Further evacuation with residual barium from the descending colon to the rectum. No obstr uction. IMPRESSION: Residual barium descending colon to rectum. Reading location - IP/workstation name: [email or web address]
[2019-02-21] MEDS: LACTULOSE SYRUP 20 GM/30 ML UDCUP PO SCH ×2 (12:29→22:27)
[2019-02-21] MEDS: FLUTICASONE/VILANTEROL 200-25 MCG/DOSE IH SCH (12:30)
[2019-02-21] MEDS: LACTOBACILLUS ACIDOPHILUS 250 MG TAB PO SCH (12:30)
[2019-02-21] MEDS: FLUTICASONE NASAL SPRAY 50 MCG/SPRY 120 SPRAY/16 GM NASL SCH (12:31)
[2019-02-21] MEDS: MULTIVITAMIN TABLET PO SCH (12:31)
[2019-02-21] MEDS: TIOTROPIUM BROMIDE DPI 5 CAP/KIT (18 MCG/CAP) IH SCH (12:31)
[2019-02-21] MEDS ORDERED: PANTOPRAZOLE SODIUM 40 MG VIAL IV SCH (12:45)
[2019-02-21] MEDS: HYDROMORPHONE HCL INJ/PF 2 MG/ML AMPULE IV PRN ×2 (13:09→17:18)
[2019-02-21] MEDS: METRONIDAZOLE 500 MG/NS RTU 500 MG/100 ML RTUPB IV SCH ×2 (13:17→17:21)
--- NOTE | 2019-02-21 14:41 | ADVANCED CARE ---
- Diagnosis (1) Acute exacerbation of chronic obstructive pulmonary disease Diagnosis Current: Yes (2) Anemia due to gastrointestinal blood loss Diagnosis Current: Yes (3) Abdominal pain Diagnosis Current: Yes (4) CVA (cerebral vascular accident) Diagnosis Current: Yes Attendance: Myself, patient's son-in-law and granddaughter and daughter Resuscitation Status: Full Code Discussion: 02/21/2019-upon entering room patient's son-in-law and granddaughter were sitting at bedside. They had concerns of patient been having abdominal pain all morning since 2 AM. Patient was given multiple doses of morphine and fentanyl without relief. Patient also having severe nausea and vomiting for which I had gave her 12.5 mg of Phenergan earlier after previous antiemetics failed. Upon talking with patient family and assessing patient I found her to have a droop to her right lip. Patient was also somewhat garbled speech which she had had this Phenergan but the decision was made to get a stat CAT scan to make sure she had had a stroke as she also was complaining at that time of numbness on her left side. Patient with this abdominal pain has been having liquid diarrhea and has been on antibiotics for gram-positive cocci in chains in her urine and gram- positive cocci in clusters in her blood. I made myself available to patient and her family for any questions he had at that time. Our plan was: 1 CT to head without contrast to rule out stroke-CT was negative 2 stool for C. difficile 3 add Flagyl 500 g IV every 6 hours the patient's medication regimen await C. difficile toxin 4 change IV morphine and fentanyl to Dilaudid 0.5 mg IV every 4 hours as needed we will titrate his as needed as this will help with furthering visceral pain. 5 n.p.o. for now 6 transfer to [facility] [address] abdomen pelvis with contrast Patient and her family were all in agreement with this plan of care. Patient also had a barium swallow yesterday with a KUB today showing residual barium. If patient continues have this type of abdominal pain already x-ray her stomach in the morning and if the barium is clear we will get a CT abdomen pelvis with contrast. Care Planning Goals: 1 CT to head without contrast to rule out stroke-CT was negative 2 stool for C. difficile 3 add Flagyl 500 g IV every 6 hours the patient's medication regimen await C. difficile toxin 4 change IV morphine and fentanyl to Dilaudid 0.5 mg IV every 4 hours as needed we will titrate his as needed as this will help with furthering visceral pain. 5 n.p.o. for now 6 transfer to [facility] [address] abdomen pelvis with contrast Document(s) Completed: I spent a total of 1 hour with patient and her family
[2019-02-21] MEDS: VANCOMYCIN HCL 1,250 MG in DEXTROSE 5%-WATER 250 ML IV SCH (15:10)
[2019-02-21] MEDS ORDERED: DEXTROSE 50%-WATER 25 GM/50 ML DISP.SYRIN IV PRN ×2 (15:18)
[2019-02-21] MEDS ORDERED: GLUCAGON,HUMAN RECOMB 1 MG INJ SUBCUT PRN (15:18)
[2019-02-21] MEDS ORDERED: DEXTROSE 40% GEL 15 GM TUBE PO PRN ×2 (15:18)
--- NOTE | 2019-02-21 15:32 | PDOC PROGRESS REPORT ---
Subjective Progress Note for:: 02/21/19 Reason For Visit: BLOOD LOSS ANEMIA Physical Exam Vital Signs: Temp Pulse Resp BP Pulse Ox 98.2 F 71 17 106/50 L 96 02/21/19 07:56 02/21/19 07:56 02/21/19 07:56 02/21/19 07:56 02/21/19 09:06 Intake & Output 02/20/19 02/21/19 02/22/19 06:59 06:59 06:59 Intake Total 670 1805 Output Total 400 600 Balance 270 1205 Weight 75.5 kg 75.2 kg General appearance: PRESENT: no acute distress, well-developed, well-nourished Mouth exam: PRESENT: other - Slight droop on the right Neck exam: ABSENT: carotid bruit, JVD, lymphadenopathy, thyromegaly Respiratory exam: PRESENT: clear to auscultation zabrina. ABSENT: rales, rhonchi, wheezes Cardiovascular exam: PRESENT: RRR. ABSENT: diastolic murmur, rubs, systolic murmur Pulses: PRESENT: normal dorsalis pedis pul Vascular exam: PRESENT: normal capillary refill GI/Abdominal exam: PRESENT: diminished bowel sounds, guarding, tenderness Extremities exam: PRESENT: full ROM. ABSENT: calf tenderness, clubbing, pedal edema Neurological exam: PRESENT: awake, other - Patient confused at this time. She did receive 12.5 mg of Phenergan for nausea although I do not suspect this is a cause for her current mental status. Patient does have a slight droop on her right mouth. Patient is unable to follow command to perform [place] stroke scale. Psychiatric exam: PRESENT: appropriate affect, normal mood. ABSENT: homicidal ideation, suicidal ideation Skin exam: PRESENT: dry, intact, warm. ABSENT: cyanosis, rash Results Laboratory Results: 02/21/19 05:15 02/21/19 05:15 02/21/19 02/21/19 05:15 05:15 WBC 25.2 H RBC 3.21 L Hgb 9.3 L Hct 28.3 L MCV 88 MCH 29.0 MCHC 33.0 RDW 14.4 H Plt Count 480 H Seg Neutrophils % Not Reportable Lymphocytes % Not Reportable Monocytes % Not Reportable Eosinophils % Not Reportable Basophils % Not Reportable Absolute Neutrophils Not Reportable Absolute Lymphocytes Not Reportable Absolute Monocytes Not Reportable Absolute Eosinophils Not Reportable Absolute Basophils Not Reportable Sodium 137.2 Potassium 4.4 Chloride 98 Carbon Dioxide 34 H Anion Gap 5 BUN 13 Creatinine 0.71 Est GFR ( Amer) > 60 Est GFR (Non-Af Amer) > 60 Glucose 97 Calcium 8.1 L Total Bilirubin 0.3 AST 40 H ALT 46 Alkaline Phosphatase 86 C-Reactive Protein 204.3 H Total Protein 5.6 L Albumin 2.9 L 02/16/19 02/16/19 02/16/19 12:30 12:30 12:30 Creatine Kinase 89 CK-MB (CK-2) 1.13 Troponin I < 0.012 NT-Pro-B Natriuret Pep 284 Impressions: Barium Enema w/ Air Contrast, therapeutic 02/18/19 09:00 IMPRESSION: SIGMOID DIVERTICULOSIS DESCRIBED ABOVE. NO IDENTIFIABLE MASSES OR LESIONS CAN BE SEEN WITHIN THE SIGMOID COLON. MILDLY DILATED CECUM THAT IS MOBILE, EXTENDING ACROSS THE MIDLINE OF THE LOWER PELVIS. Chest X-Ray 02/19/19 00:00 IMPRESSION: Small bilateral pleural effusions and basilar atelectasis left greater than right. Overall findings are slightly improved compared to prior exam. Venous Doppler Study 02/20/19 00:00 IMPRESSION: NO EVIDENCE DVT OR SVT IN EITHER LEG. Assessment and Plan - Diagnosis (1) Acute exacerbation of chronic obstructive pulmonary disease Is this a current diagnosis for this admission?: Yes Plan: Patient with mild COPD exacerbation; noted to have rhonchi and slight wheeze on exam. She is not home O2 dependent. At rest, O2 sats really decreased to 87%. She is placed on duo nebs 3 times daily with albuterol as needed. P.o. prednisone. Supplemental oxygen as needed. We will resume her home medication regiment once reconciled. No indication for antibiotic therapy at this time. 02/21/2019-continue PRN nebulizers. Patient continues on steroids at this time. Submental oxygen as needed. (2) Anemia due to gastrointestinal blood loss Is this a current diagnosis for this admission?: Yes Plan: No source of bleeding identified on EGD. Her colonoscopy shows multiple large diverticuli which is suspected for as a source of bleeding. Her barium enema results pending. 02/21/2019-stable at this time. EGD was normal colonoscopy showed multiple large diverticuli which is a suspected bleeding source. Per surgery patient can be back on antiplatelets at this time. (3) Abdominal pain Qualifiers: Abdominal location: generalized Qualified Code(s): R10.84 - Generalized abdominal pain Is this a current diagnosis for this admission?: Yes Plan: 02/21/2019-patient overnight complained of severe abdominal pain that was diffuse and crampy in nature. Patient received several doses of pain medication without much relief. Patient did have a barium swallow yesterday morning. Patient's family states that he could see his peristolic waves when this pain was happening. Patient does not have an acute abdomen at this time. She does have a diffuse tenderness on palpation. Patient does show gram-positive cocci in the clusters and her blood and gram-positive cocci in chains in her urine. At this time am not sure if she might be developing abdominal infection as well. I will add Flagyl 500 mg IV every 6 hours as needed. Continue PRN pain medications. Continue antiemetics. (4) CVA (cerebral vascular accident) Is this a current diagnosis for this admission?: Yes Plan: 02/21/2019-upon initial examination of patient she was slurring her speech. P natalie had received Phenergan several hours before but also noticed patient was having a right-sided facial droop. Patient was also slightly weaker on the left side and has also been complaining of numbness to her left side according to family. I am obtaining a CT scan of her brain at this time to rule out CVA. Also will place patient back on aspirin at this time. CT of brain was negative - Time Time Spent with patient: 35 or more minutes Anticipated discharge: Home - Inpatient Certification Based on my medical assessment, after consideration of the patient's comorbidities, presenting symptoms, or acuity I expect that the services needed warrant INPATIENT care.: Yes I certify that my determination is in accordance with my understanding of Medicare's requirements for reasonable and necessary INPATIENT services [42 CFR 412.3e].: Yes Medical Necessity: Other - Patient continues on IV fluids, IV pain medication and continued work-up.
[2019-02-21] MEDS ORDERED: ONDANSETRON HCL INJ/PF 4 MG/2 ML SDV ONE (20:08)
[2019-02-21] MEDS ORDERED: ONDANSETRON HCL INJ/PF 4 MG/2 ML SDV IV ONE (20:15)
[2019-02-21] MEDS: MORPHINE SULFATE 10 MG/ML INJ IV PRN (22:20)
[2019-02-21] MEDS: ATORVASTATIN CALCIUM 80 MG TABLET PO SCH (22:27)
[2019-02-22] MEDS: METRONIDAZOLE 500 MG/NS RTU 500 MG/100 ML RTUPB IV SCH ×5 (00:10→23:53)
[2019-02-22] MEDS: MORPHINE SULFATE 10 MG/ML INJ IV PRN ×5 (00:10→20:42)
[2019-02-22] MEDS: ONDANSETRON HCL INJ/PF 4 MG/2 ML SDV IV PRN ×3 (00:11→20:45)
[2019-02-22] MEDS: IPRATROPIUM BROMIDE 0.02% NEB 0.5 MG/2.5 ML AMPUL NEB SCH ×3 (00:25→15:59)
[2019-02-22] MEDS: LEVALBUTEROL HCL NEB 1.25 MG/3 ML AMPUL NEB SCH ×3 (00:26→15:59)
[2019-02-22] MEDS: FAMOTIDINE 20 MG TABLET PO SCH ×2 (05:25→17:05)
[2019-02-22 06:54] LABS: HEMATOCRIT 29.3 % (36.0-47.0); HEMOGLOBIN 9.5 g/dL (12.0-15.5); MEAN CORPUSCULAR HGB CONC 32.5 g/dL (32.0-36.0); MEAN CORPUSCULAR VOLUME 89 fl (80-97); PLATELET COUNT 490 10^3/uL (150-450); RED BLOOD COUNT 3.29 10^6/uL (3.72-5.28); RED CELL DISTRIBUTION WIDTH 14.8 % (11.5-14.0)
[2019-02-22 07:29] LABS: ANION GAP 7 (5-19); BLOOD UREA NITROGEN 14 mg/dL (7-20); CALCIUM 8.5 mg/dL (8.4-10.2); CARBON DIOXIDE 33 mmol/L (22-30); CHLORIDE 97 mmol/L (98-107); GLUCOSE 94 mg/dL (75-110); POTASSIUM 4.2 mmol/L (3.6-5.0); SODIUM 136.6 mmol/L (137-145)
--- NOTE | 2019-02-22 08:01 | PDOC PROGRESS REPORT ---
Subjective Progress Note for:: 02/22/19 Subjective:: Patient complains of continued abdominal pain with dry heaves and right ankle pain. Reason For Visit: BLOOD LOSS ANEMIA Physical Exam Vital Signs: Temp Pulse Resp BP Pulse Ox 98.7 F 78 17 115/70 90 L 02/22/19 03:46 02/22/19 07:00 02/22/19 03:46 02/22/19 06:03 02/22/19 03:46 Intake & Output 02/21/19 02/22/19 02/23/19 06:59 06:59 06:59 Intake Total 1805 2100 Output Total 600 Balance 1205 2100 Weight 75.2 kg 75.2 kg General appearance: PRESENT: no acute distress, well-developed, well-nourished Neck exam: ABSENT: carotid bruit, JVD, lymphadenopathy, thyromegaly Respiratory exam: PRESENT: clear to auscultation zabrina. ABSENT: rales, rhonchi, wheezes Cardiovascular exam: PRESENT: RRR. ABSENT: diastolic murmur, rubs, systolic murmur Pulses: PRESENT: normal dorsalis pedis pul Vascular exam: PRESENT: normal capillary refill GI/Abdominal exam: PRESENT: guarding, hyperactive bowel sounds, soft, tenderness Extremities exam: PRESENT: tenderness - Right ankle tenderness and mild erythema Neurological exam: PRESENT: alert, awake, oriented to person, oriented to place, oriented to time, oriented to situation, CN II-XII grossly intact. ABSENT: motor sensory deficit Psychiatric exam: PRESENT: appropriate affect, normal mood. ABSENT: homicidal ideation, suicidal ideation Skin exam: PRESENT: dry, intact, warm. ABSENT: cyanosis, rash Results Laboratory Results: 02/22/19 06:00 02/22/19 06:00 02/21/19 02/21/19 02/22/19 05:15 16:10 06:00 WBC 19.0 H RBC 3.29 L Hgb 9.5 L Hct 29.3 L MCV 89 MCH 29.0 MCHC 32.5 RDW 14.8 H Plt Count 490 H Sodium Potassium Chloride Carbon Dioxide Anion Gap BUN Creatinine Est GFR ( Amer) Est GFR (Non-Af Amer) Glucose Lactic Acid 0.8 Calcium Lipase 37.4 02/22/19 06:00 WBC RBC Hgb Hct MCV MCH MCHC RDW Plt Count Sodium 136.6 L Potassium 4.2 Chloride 97 L Carbon Dioxide 33 H Anion Gap 7 BUN 14 Creatinine 0.68 Est GFR ( Amer) > 60 Est GFR (Non-Af Amer) > 60 Glucose 94 Lactic Acid Calcium 8.5 Lipase 02/19/19 20:52 Clean Catch Midstream Urine Culture - Final Enterococcus Faecalis(Group D) 02/16/19 02/16/19 02/16/19 12:30 12:30 12:30 Creatine Kinase 89 CK-MB (CK-2) 1.13 Troponin I < 0.012 NT-Pro-B Natriuret Pep 284 Impressions: Barium Enema w/ Air Contrast, therapeutic 02/18/19 09:00 IMPRESSION: SIGMOID DIVERTICULOSIS DESCRIBED ABOVE. NO IDENTIFIABLE MASSES OR LESIONS CAN BE SEEN WITHIN THE SIGMOID COLON. MILDLY DILATED CECUM THAT IS MOBILE, EXTENDING ACROSS THE MIDLINE OF THE LOWER PELVIS. Chest X-Ray 02/19/19 00:00 IMPRESSION: Small bilateral pleural effusions and basilar atelectasis left greater than right. Overall findings are slightly improved compared to prior exam. Venous Doppler Study 02/20/19 00:00 IMPRESSION: NO EVIDENCE DVT OR SVT IN EITHER LEG. Head CT 02/21/19 00:00 IMPRESSION: CHRONIC CHANGES OF ATROPHY AND MICROVASCULAR ISCHEMIA. NO ACUTE PROCESS. EVIDENCE OF ACUTE STROKE: NO. KUB X-Ray 02/21/19 08:00 IMPRESSION: Residual barium descending colon to rectum. Assessment and Plan - Diagnosis (1) Acute exacerbation of chronic obstructive pulmonary disease Is this a current diagnosis for this admission?: Yes Plan: Patient with mild COPD exacerbation; noted to have rhonchi and slight wheeze on exam. She is not home O2 dependent. At rest, O2 sats really decreased to 87%. She is placed on duo nebs 3 times daily with albuterol as needed. P.o. prednisone. Supplemental oxygen as needed. We will resume her home medication regiment once reconciled. No indication for antibiotic therapy at this time. 02/21/2019-continue PRN nebulizers. Patient continues on steroids at this time. Submental oxygen as needed. 02/22/2019-stable at this time. Continue current therapy. (2) Anemia due to gastrointestinal blood loss Is this a current diagnosis for this admission?: Yes Plan: No source of bleeding identified on EGD. Her colonoscopy shows multiple large diverticuli which is suspected for as a source of bleeding. Her barium enema results pending. 02/21/2019-stable at this time. EGD was normal colonoscopy showed multiple large diverticuli which is a suspected bleeding source. Per surgery patient can be back on antiplatelets at this time. 02/22/2019-stable at this time. Continue to follow with daily CBCs. (3) Abdominal pain Qualifiers: Abdominal location: generalized Qualified Code(s): R10.84 - Generalized abdominal pain Is this a current diagnosis for this admission?: Yes Plan: 02/21/2019-patient overnight complained of severe abdominal pain that was diffuse and crampy in nature. Patient received several doses of pain medication without much relief. Patient did have a barium swallow yesterday morning. Patient's family states that he could see his peristolic waves when this pain was happening. Patient does not have an acute abdomen at this time. She does have a diffuse tenderness on palpation. Patient does show gram-positive cocci in the clusters and her blood and gram-positive cocci in chains in her urine. At this time am not sure if she might be developing abdominal infection as well. I will add Flagyl 500 mg IV every 6 hours as needed. Continue PRN pain medications. Continue antiemetics. 02/22/2019-patient continues to have diffuse abdominal pain with tenderness on palpation especially over the lower quadrants. This morning I am going to obtain a KUB if this shows clearance of her barium from her previous barium enema we will obtain a CT of the abdomen pelvis with contrast. Continue pain management. Continue Flagyl. (4) CVA (cerebral vascular accident) Is this a current diagnosis for this admission?: Yes Plan: 02/21/2019-upon initial examination of patient she was slurring her speech. Patient had received Phenergan several hours before but also noticed patient was having a right-sided facial droop. Patient was also slightly weaker on the left side and has also been complaining of numbness to her left side according to family. I am obtaining a CT scan of her brain at this time to rule out CVA. Also will place patient back on aspirin at this time. CT of brain was negative (5) Right ankle pain Is this a current diagnosis for this admission?: Yes Plan: 02/22/2019-patient complaining of right ankle pain. Apparently the other day while getting a study she came back and complained of this right ankle pain. Its red and warm to touch. At this time we will get a full ankle series to dete rmine if there is pathology for this ankle pain. Patient is already on pain management we will continue this. - Time Time Spent with patient: 15-24 minutes - Inpatient Certification Based on my medical assessment, after consideration of the patient's comorbidities, presenting symptoms, or acuity I expect that the services needed warrant INPATIENT care.: Yes I certify that my determination is in accordance with my understanding of Medicare's requirements for reasonable and necessary INPATIENT services [42 CFR 412.3e].: Yes Medical Necessity: Other - Patient continues on IV fluids, IV pain management and further testing.
[2019-02-22] MEDS: BUDESONIDE NEB 0.5 MG/2 ML AMPUL NEB SCH ×2 (08:13→20:13)
--- NOTE | 2019-02-22 08:39 | RADIOLOGY REPORT (SQ) ---
EXAM DESCRIPTION: ANKLE RIGHT COMPLETE COMPLETED DATE/TIME: 02/22/2019 8:30 am REASON FOR STUDY: ankle pain K29.80 DUODENITIS WITHOUT BLEEDING K22.11 ULCER OF ESOPHAGUS WITH BLE EDING COMPARISON: None. NUMBER OF VIEWS: Three views. TECHNIQUE: AP, lateral, and oblique without weight bearing radiographic images acquired of the right ankle. LIMITATIONS: None. FINDINGS: MINERALIZATION: Normal. BONES: No acute fracture or dislocation. No worrisome bone lesions. Small osteophytes in the ankle karina int. JOINTS: Intact. SOFT TISSUES: No soft tissue swelling. No foreign body. OTHER: No other significant finding. IMPRESSION: Degenerative changes. No acute findings. TECHNICAL DOCUMENTATION: JOB ID: [id number] [employer]- All Rights Reserved Reading location - IP/workstation name: [email or web address]
--- NOTE | 2019-02-22 08:40 | RADIOLOGY REPORT (SQ) ---
EXAM DESCRIPTION: KUB/ABDOMEN (SINGLE VIEW) COMPLETED DATE/TIME: 02/22/2019 8:30 am REASON FOR STUDY: abdominal pain/barium clearance COMPARISON: 02/21/2019. NUMBER OF VIEWS: One view. TECHNIQUE: Supine radiographic image of the abdomen acquired. LIMITATIONS: None. FINDINGS: BOWEL GAS PATTERN: Residual barium descending colon to rectum. CALCIFICATIONS: No suspicious calcifications. SOFT TISSUES: No gross mass or suggestion of organomegaly. HARDWARE: None. BONES: No bone lesions or fracture. OTHER: No other significant finding. IMPRESSION: Residual barium distal descending colon to the rectum. Reading location - IP/workstation name: [email or web address]
[2019-02-22] MEDS ORDERED: LORAZEPAM INJ 2 MG/1 ML VIAL IV PRN (09:40)
[2019-02-22] MEDS ORDERED: NORMAL SALINE 500 ML IV ONE (09:42)
[2019-02-22] MEDS: ASPIRIN 81 MG TABLET, CHEWABLE PO SCH (09:58)
[2019-02-22] MEDS: LACTOBACILLUS ACIDOPHILUS 250 MG TAB PO SCH (09:58)
[2019-02-22] MEDS: PREDNISONE 20 MG TABLET PO SCH (09:58)
[2019-02-22] MEDS: LACTULOSE SYRUP 20 GM/30 ML UDCUP PO SCH ×2 (09:58→21:54)
[2019-02-22] MEDS: MULTIVITAMIN TABLET PO SCH (09:59)
--- NOTE | 2019-02-22 12:08 | RADIOLOGY REPORT (SQ) ---
EXAM DESCRIPTION: CT ABD/PELVIS WITH IV ONLY COMPLETED DATE/TIME: 02/22/2019 11:36 am REASON FOR STUDY: Abdominal/N/V K29.80 DUODENITIS WITHOUT BLEEDING K22.11 ULCER OF ESOPHAGUS WITH BLEEDING COMPARISON: None. TECHNIQUE: CT scan of the abdomen and pelvis performed using helical scanning technique with dynamic intravenous contrast injection. No oral contrast. Images reviewed with lung, soft tissue, and bone windows. Reconstructed coronal and sagittal MPR images reviewed. Delayed images for evaluation of the urinary system also acquired. All images stored on PACS. All CT scanners at this facility use dose modulation, iterative reconstruction, and/or weight based d osing when appropriate to reduce radiation dose to as low as reasonably achievable (ALARA). [facility]: Dose Right [facility]: CareDose [facility]: Dose Right [facility]: Teradose 4D [facility]: StarsVu CONTRAST TYPE AND DOSE: contrast/concentration: Isovue 350.00 mg/ml; Total Contrast Delivered: 86.0 ml; Total Saline Delivered: 69.0 ml RENAL FUNCTION: GFR > 60. RADIATION DOSE: CT Rad equipment meets quality standard of care and radiation dose reduction techniq ues were employed. CTDIvol: 17.4 - 19.1 mGy. DLP: 1812 mGy-cm.. LIMITATIONS: None. FINDINGS: LOWER CHEST: Trace pleural effusions. Airspace disease dependent left lower lobe. LIVER: Normal size. No masses. No dilated ducts. SPLEEN: Normal size. No focal lesions. PANCREAS: No masses. No significant calcifications. No adjacent inflammation or peripancreatic fluid collections. Pancreatic duct not dilated. GALLBLADDER: Surgically absent. ADRENAL GLANDS: No significant masses or asymmetry. RIGHT KIDNEY AND URETER: No solid masses. No significant calcifications. No hydronephrosis or hyd roureter. LEFT KIDNEY AND URETER: Very large upper pole cyst measuring 12.8 cm craniocaudal diameter extending to the inferior margin of the diaphragm. No solid masses. No significant calcifications. No hydr onephrosis or hydroureter. AORTA AND VESSELS: No aneurysm. Thrombus in the proximal SMA. The more distal SMA is opacified. RETROPERITONEUM: No retroperitoneal adenopathy, hemorrhage or masses. BOWEL AND PERITONEAL CAVITY: Sigmoid diverticulosis. No masses or inflammatory changes. No free flui d or peritoneal masses. APPENDIX: Surgically absent. PELVIS: No mass. No free fluid. Normal bladder. ABDOMINAL WALL: No masses. No hernias. BONES: No significant or acute findings. OTHER: No other significant finding. IMPRESSION: 1. 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 2. Diverticulosis without evidence of diverticulitis. 3. Left lower lobe atelectasis or pneumonia. Clinical correlation is needed. TECHNICAL DOCUMENTATION: JOB ID: [id number] Quality ID # [id number]: Final reports with documentation of one or more dose reduction techniques (e.g., Au tomated exposure control, adjustment of the mA and/or kV according to patient size, use of iterative reconstruction technique) 2010 [employer]- All Rights Reserved Reading location - IP/workstation name: [email or web address]
[2019-02-22] MEDS: PANTOPRAZOLE SODIUM 40 MG VIAL IV SCH (12:14)
[2019-02-22] MEDS: NORMAL SALINE 1000 ML 1,000 ML IV PRN (12:14)
[2019-02-22] MEDS: FLUTICASONE NASAL SPRAY 50 MCG/SPRY 120 SPRAY/16 GM NASL SCH (12:15)
[2019-02-22] MEDS: TIOTROPIUM BROMIDE DPI 5 CAP/KIT (18 MCG/CAP) IH SCH (12:15)
[2019-02-22] MEDS: CEFEPIME 1 GM/D5W RTU 1 GM/50 ML RTUPB IV SCH ×2 (12:15→21:52)
[2019-02-22] MEDS: FLUTICASONE/VILANTEROL 200-25 MCG/DOSE IH SCH (12:16)
[2019-02-22] MEDS: VANCOMYCIN HCL 1,250 MG in DEXTROSE 5%-WATER 250 ML IV SCH (13:05)
--- NOTE | 2019-02-22 18:23 | ADVANCED CARE ---
- Diagnosis (1) Acute exacerbation of chronic obstructive pulmonary disease Diagnosis Current: Yes (2) Anemia due to gastrointestinal blood loss Diagnosis Current: Yes (3) Abdominal pain Diagnosis Current: No (4) CVA (cerebral vascular accident) Diagnosis Current: Yes Attendance: Myself, several of patient's daughters and sons. Granddaughter. Resuscitation Status: Full Code Discussion: 02/22/2019-spent quite time talking with patient's family and patient about current situation. Patient's family had many questions about plan of care. Patient to be experiencing extreme abdominal pain since yesterday. This does seem to be improved today but continues. I was able get a CT of her abdomen pelvis with IV contrast which showed a nonobstructive thrombosis of the proximal SMA for which I discussed with Surgicalist bacon stringer. We were in agreement that we did not believe this was the cause of her abdominal pain, in addition her lactic acid remains normal, so no ischemic bowel. C-diff toxin negative. Patient is in better spirits today and having more periods of pain free. She is requiring multiple doses of Morphine. Dry heaving continues but has improved. She has a bacteremia and UTI both that are susceptible to Vancomycin. Plan of care was discussed: 1. Continue NPO for bowel rest. 2. Continue ABX therapy. 3. Continue PRN pain medication and PRN anti-emetics. 4. Repeat blood cultures in am for clearance. 5. Reassess in am and possible start clears if patient pain and N/V improved. Time Spent: 40 minutes spent with family and patient.
[2019-02-22] MEDS: ATORVASTATIN CALCIUM 80 MG TABLET PO SCH (21:54)
[2019-02-23] MEDS: IPRATROPIUM BROMIDE 0.02% NEB 0.5 MG/2.5 ML AMPUL NEB SCH ×3 (00:18→16:17)
[2019-02-23] MEDS: LEVALBUTEROL HCL NEB 1.25 MG/3 ML AMPUL NEB SCH ×3 (00:18→16:17)
[2019-02-23] MEDS: ONDANSETRON HCL INJ/PF 4 MG/2 ML SDV IV PRN (01:44)
[2019-02-23] MEDS: MORPHINE SULFATE 10 MG/ML INJ IV PRN ×2 (01:46→03:55)
[2019-02-23] MEDS: NORMAL SALINE 1000 ML 1,000 ML IV PRN ×2 (02:50→18:28)
[2019-02-23 05:03] LABS: HEMOGLOBIN 9.1 g/dL (12.0-15.5); MEAN CORPUSCULAR HEMOGLOBIN 28.8 pg (27.0-33.4); MEAN CORPUSCULAR HGB CONC 32.6 g/dL (32.0-36.0); MEAN CORPUSCULAR VOLUME 88 fl (80-97); PLATELET COUNT 453 10^3/uL (150-450); RED BLOOD COUNT 3.17 10^6/uL (3.72-5.28); RED CELL DISTRIBUTION WIDTH 14.9 % (11.5-14.0); WHITE BLOOD COUNT 14.8 10^3/uL (4.0-10.5)
[2019-02-23 05:23] LABS: ANION GAP 7 (5-19); BLOOD UREA NITROGEN 13 mg/dL (7-20); CALCIUM 8.2 mg/dL (8.4-10.2); CARBON DIOXIDE 33 mmol/L (22-30); CHLORIDE 97 mmol/L (98-107); GLUCOSE 86 mg/dL (75-110); POTASSIUM 4.1 mmol/L (3.6-5.0); SODIUM 136.9 mmol/L (137-145)
[2019-02-23] MEDS: FAMOTIDINE 20 MG TABLET PO SCH (06:02)
[2019-02-23] MEDS: METRONIDAZOLE 500 MG/NS RTU 500 MG/100 ML RTUPB IV SCH ×3 (06:02→18:28)
[2019-02-23] MEDS: BUDESONIDE NEB 0.5 MG/2 ML AMPUL NEB SCH ×2 (08:23→20:09)
--- NOTE | 2019-02-23 09:47 | Progress Note Acknowledgement ---
Progress Note Acknowledgement Progess Note Acknowledgement: I, the undersigned member of the medical staff with appropriate privileges and with supervisory authority over [Darian Tovar], a dependent practice allied health professional, acknowledge that I have reviewed the progress notes entered on this patient, and in my professional judgment believe that the assessment made and/or any care evidenced was appropriate
--- NOTE | 2019-02-23 09:53 | PDOC PROGRESS REPORT ---
Subjective Progress Note for:: 02/23/19 Subjective:: Patient complains of continued abdominal pain with dry heaves and right ankle pain. Reason For Visit: BLOOD LOSS ANEMIA Physical Exam Vital Signs: Temp Pulse Resp BP Pulse Ox 98.8 F 76 18 136/58 H 94 02/23/19 07:58 02/23/19 08:26 02/23/19 08:26 02/23/19 07:58 02/23/19 08:26 Intake & Output 02/22/19 02/23/19 02/24/19 06:59 06:59 06:59 Intake Total 2100 3570 100 Balance 2100 3570 100 Weight 75.2 kg 73.5 kg Results Laboratory Results: 02/23/19 04:20 02/23/19 04:20 02/22/19 02/23/19 02/23/19 14:50 04:20 04:20 WBC 14.8 H RBC 3.17 L Hgb 9.1 L Hct 28.0 L MCV 88 MCH 28.8 MCHC 32.6 RDW 14.9 H Plt Count 453 H Sodium 136.9 L Potassium 4.1 Chloride 97 L Carbon Dioxide 33 H Anion Gap 7 BUN 13 Creatinine 0.67 Est GFR ( Amer) > 60 Est GFR (Non-Af Amer) > 60 Glucose 86 Lactic Acid 0.8 Calcium 8.2 L 02/19/19 19:33 Blood Blood Culture - Final Staphylococcus Aureus 02/19/19 18:38 Blood Blood Culture - Final Staphylococcus Aureus 02/16/19 02/16/19 02/16/19 12:30 12:30 12:30 Creatine Kinase 89 CK-MB (CK-2) 1.13 Troponin I < 0.012 NT-Pro-B Natriuret Pep 284 Impressions: Barium Enema w/ Air Contrast, therapeutic 02/18/19 09:00 IMPRESSION: SIGMOID DIVERTICULOSIS DESCRIBED ABOVE. NO IDENTIFIABLE MASSES OR LESIONS CAN BE SEEN WITHIN THE SIGMOID COLON. MILDLY DILATED CECUM THAT IS MOBILE, EXTENDING ACROSS THE MIDLINE OF THE LOWER PELVIS. Chest X-Ray 02/19/19 00:00 IMPRESSION: Small bilateral pleural effusions and basilar atelectasis left greater than right. Overall findings are slightly improved compared to prior exam. Venous Doppler Study 02/20/19 00:00 IMPRESSION: NO EVIDENCE DVT OR SVT IN EITHER LEG. Head CT 02/21/19 00:00 IMPRESSION: CHRONIC CHANGES OF ATROPHY AND MICROVASCULAR ISCHEMIA. NO ACUTE PROCESS. EVIDENCE OF ACUTE STROKE: NO. Abdomen/Pelvis CT 02/22/19 00:00 IMPRESSION: 1. 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 2. Diverticulosis without evidence of diverticulitis. 3. Left lower lobe atelectasis or pneumonia. Clinical correlation is needed. Ankle X-Ray 02/22/19 00:00 IMPRESSION: Degenerative changes. No acute findings. KUB X-Ray 02/22/19 00:00 IMPRESSION: Residual barium distal descending colon to the rectum. Assessment and Plan - Diagnosis (1) Acute exacerbation of chronic obstructive pulmonary disease Is this a current diagnosis for this admission?: Yes Plan: Patient with mild COPD exacerbation; noted to have rhonchi and slight wheeze on exam. She is not home O2 dependent. At rest, O2 sats really decreased to 87%. She is placed on duo nebs 3 times daily with albuterol as needed. P.o. prednisone. Supplemental oxygen as needed. We will resume her home medication regiment once reconciled. No indication for antibiotic therapy at this time. 02/21/2019-continue PRN nebulizers. Patient continues on steroids at this time. Submental oxygen as needed. 02/22/2019-stable at this time. Continue current therapy. 02/23/2019-continues to be stable at this time. Continue current therapy (2) Anemia due to gastrointestinal blood loss Is this a current diagnosis for this admission?: Yes Plan: No source of bleeding identified on EGD. Her colonoscopy shows multiple large diverticuli which is suspected for as a source of bleeding. Her barium enema results pending. 02/21/2019-stable at this time. EGD was normal colonoscopy showed multiple large diverticuli which is a suspected bleeding source. Per surgery patient can be back on antiplatelets at this time. 02/22/2019-stable at this time. Continue to follow with daily CBCs. 02/23/2019-stable (3) Abdominal pain Qualifiers: Abdominal location: generalized Qualified Code(s): R10.84 - Generalized abdominal pain Is this a current diagnosis for this admission?: Yes Plan: 02/21/2019-patient overnight complained of severe abdominal pain that was diffuse and crampy in nature. Patient received several doses of pain medication without much relief. Patient did have a barium swallow yesterday morning. Patient's family states that he could see his peristolic waves when this pain was happening. Patient does not have an acute abdomen at this time. She does have a diffuse tenderness on palpation. Patient does show gram-positive cocci in the clusters and her blood and gram-positive cocci in chains in her urine. At this time am not sure if she might be developing abdominal infection as well. I will add Flagyl 500 mg IV every 6 hours as needed. Continue PRN pain medications. Continue antiemetics. 02/22/2019-patient continues to have diffuse abdominal pain with tenderness on palpation especially over the lower quadrants. This morning I am going to obtain a KUB if this shows clearance of her barium from her previous barium enema we will obtain a CT of the abdomen pelvis with contrast. Continue pain management. Continue Flagyl. 02/23/2019-improved. Will DC IV morphine will give patient morphine orally 6 mg every 4 hours per pharmacy dosing. We will try clear liquids this morning. Have patient ambulate (4) CVA (cerebral vascular accident) Is this a current diagnosis for this admission?: Yes (5) Right ankle pain Is this a current diagnosis for this admission?: Yes (6) Thrush of mouth and esophagus Is this a current diagnosis for this admission?: Yes Plan: 02/23/2019-nystatin swish and swallow 500,000 units every 6 hours (7) Herpes zoster Qualifiers: Herpes zoster complications: without complications Qualified Code(s): B02.9 - Zoster without complications Is this a current diagnosis for this admission?: Yes Plan: 02/23/2019-acyclovir 800 mg 3 times daily. - Time Time Spent with patient: 15-24 minutes - Inpatient Certification Based on my medical assessment, after consideration of the patient's comorbidities, presenting symptoms, or acuity I expect that the services needed warrant INPATIENT care.: Yes I certify that my determination is in accordance with my understanding of Medicare's requirements for reasonable and necessary INPATIENT services [42 CFR 412.3e].: Yes Medical Necessity: Other - Continue IV fluids, pain control, physical therapy.
[2019-02-23] MEDS ORDERED: MORPHINE SULFATE 0.1 MG/ML ORAL SOLN 100 ML (NSY) PO SCH (10:00)
[2019-02-23 10:31] LABS: ABSOLUTE EOSINOPHILS # (AUTO) 0.1 10^3/uL (0.0-0.6); ABSOLUTE LYMPHOCYTES (AUTO) 0.7 10^3/uL (0.5-4.7); ABSOLUTE MONOCYTES (AUTO) 1.3 10^3/uL (0.1-1.4); ABSOLUTE NEUT (AUTO) 10.8 10^3/uL (1.7-8.2); BASOPHILS % (AUTO) 0.3 % (0-2); EOSINOPHILS % (AUTO) 1.1 % (0-6); HEMATOCRIT 29.3 % (36.0-47.0); HEMOGLOBIN 9.5 g/dL (12.0-15.5); LYMPHOCYTES % (AUTO) 5.6 % (13-45); MEAN CORPUSCULAR HEMOGLOBIN 28.8 pg (27.0-33.4); MEAN CORPUSCULAR HGB CONC 32.3 g/dL (32.0-36.0); MEAN CORPUSCULAR VOLUME 89 fl (80-97); PLATELET COUNT 482 10^3/uL (150-450); RED BLOOD COUNT 3.29 10^6/uL (3.72-5.28); RED CELL DISTRIBUTION WIDTH 15.3 % (11.5-14.0); TOTAL CELLS COUNTED % (AUTO) 100 %
[2019-02-23] MEDS: CEFEPIME 1 GM/D5W RTU 1 GM/50 ML RTUPB IV SCH ×2 (11:08→21:26)
[2019-02-23 11:09] LABS: ANION GAP 9 (5-19); BLOOD UREA NITROGEN 14 mg/dL (7-20); CALCIUM 8.4 mg/dL (8.4-10.2); CARBON DIOXIDE 31 mmol/L (22-30); CHLORIDE 97 mmol/L (98-107); GLUCOSE 78 mg/dL (75-110); SODIUM 137.2 mmol/L (137-145)
[2019-02-23 11:13] LABS: VANCOMYCIN,TROUGH 6.6 ug/mL (5.0-20.0)
--- NOTE | 2019-02-23 11:28 | PDOC PROGRESS REPORT ---
Subjective Progress Note for:: 02/23/19 Subjective:: Patient complains of continued abdominal pain with dry heaves and right ankle pain. Reason For Visit: BLOOD LOSS ANEMIA Physical Exam Vital Signs: Temp Pulse Resp BP Pulse Ox 98.8 F 76 18 136/58 H 94 02/23/19 07:58 02/23/19 08:26 02/23/19 08:26 02/23/19 07:58 02/23/19 08:26 Intake & Output 02/22/19 02/23/19 02/24/19 06:59 06:59 06:59 Intake Total 2100 3570 100 Balance 2100 3570 100 Weight 75.2 kg 73.5 kg Results Laboratory Results: 02/23/19 09:58 02/23/19 09:58 02/22/19 02/23/19 02/23/19 14:50 04:20 04:20 WBC 14.8 H RBC 3.17 L Hgb 9.1 L Hct 28.0 L MCV 88 MCH 28.8 MCHC 32.6 RDW 14.9 H Plt Count 453 H Seg Neutrophils % Lymphocytes % Monocytes % Eosinophils % Basophils % Absolute Neutrophils Absolute Lymphocytes Absolute Monocytes Absolute Eosinophils Absolute Basophils Sodium 136.9 L Potassium 4.1 Chloride 97 L Carbon Dioxide 33 H Anion Gap 7 BUN 13 Creatinine 0.67 Est GFR ( Amer) > 60 Est GFR (Non-Af Amer) > 60 Glucose 86 Lactic Acid 0.8 Calcium 8.2 L 02/23/19 02/23/19 09:58 09:58 WBC 13.0 H RBC 3.29 L Hgb 9.5 L Hct 29.3 L MCV 89 MCH 28.8 MCHC 32.3 RDW 15.3 H Plt Count 482 H Seg Neutrophils % 83.0 H Lymphocytes % 5.6 L Monocytes % 10.0 Eosinophils % 1.1 Basophils % 0.3 Absolute Neutrophils 10.8 H Absolute Lymphocytes 0.7 Absolute Monocytes 1.3 Absolute Eosinophils 0.1 Absolute Basophils 0.0 Sodium 137.2 Potassium 4.0 Chloride 97 L Carbon Dioxide 31 H Anion Gap 9 BUN 14 Creatinine 0.65 Est GFR ( Amer) > 60 Est GFR (Non-Af Amer) > 60 Glucose 78 Lactic Acid Calcium 8.4 02/19/19 19:33 Blood Blood Culture - Final Staphylococcus Aureus 02/19/19 18:38 Blood Blood Culture - Final Staphylococcus Aureus 02/16/19 02/16/19 02/16/19 12:30 12:30 12:30 Creatine Kinase 89 CK-MB (CK-2) 1.13 Troponin I < 0.012 NT-Pro-B Natriuret Pep 284 Impressions: Barium Enema w/ Air Contrast, therapeutic 02/18/19 09:00 IMPRESSION: SIGMOID DIVERTICULOSIS DESCRIBED ABOVE. NO IDENTIFIABLE MASSES OR LESIONS CAN BE SEEN WITHIN THE SIGMOID COLON. MILDLY DILATED CECUM THAT IS MOBILE, EXTENDING ACROSS THE MIDLINE OF THE LOWER PELVIS. Chest X-Ray 02/19/19 00:00 IMPRESSION: Small bilateral pleural effusions and basilar atelectasis left greater than right. Overall findings are slightly improved compared to prior exam. Venous Doppler Study 02/20/19 00:00 IMPRESSION: NO EVIDENCE DVT OR SVT IN EITHER LEG. Head CT 02/21/19 00:00 IMPRESSION: CHRONIC CHANGES OF ATROPHY AND MICROVASCULAR ISCHEMIA. NO ACUTE PROCESS. EVIDENCE OF ACUTE STROKE: NO. Abdomen/Pelvis CT 02/22/19 00:00 IMPRESSION: 1. 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 2. Diverticulosis without evidence of diverticulitis. 3. Left lower lobe atelectasis or pneumonia. Clinical correlation is needed. Ankle X-Ray 02/22/19 00:00 IMPRESSION: Degenerative changes. No acute findings. KUB X-Ray 02/22/19 00:00 IMPRESSION: Residual barium distal descending colon to the rectum. Assessment and Plan - Diagnosis (1) Acute exacerbation of chronic obstructive pulmonary disease Is this a current diagnosis for this admission?: Yes (2) Anemia due to gastrointestinal blood loss Is this a current diagnosis for this admission?: Yes (3) Abdominal pain Qualifiers: Abdominal location: generalized Qualified Code(s): R10.84 - Generalized abdominal pain Is this a current diagnosis for this admission?: Yes (4) CVA (cerebral vascular accident) Is this a current diagnosis for this admission?: Yes (5) Right ankle pain Is this a current diagnosis for this admission?: Yes (6) Thrush of mouth and esophagus Is this a current diagnosis for this admission?: Yes (7) Herpes zoster Qualifiers: Herpes zoster complications: without complications Qualified Code(s): B02.9 - Zoster without complications Is this a current diagnosis for this admission?: Yes (8) Bacteremia Is this a current diagnosis for this admission?: Yes Plan: 02/23/2019-patient bacteremic with staph aureus. Continue vancomycin. Repeated second blood culture yesterday waiting results. (9) UTI (urinary tract infection) Is this a current diagnosis for this admission?: Yes Plan: February 23, 2019-urine growing enterococcus facialis. This is susceptible to vancomycin. Continue to monitor.
[2019-02-23] MEDS: ASPIRIN 81 MG TABLET, CHEWABLE PO SCH (11:45)
[2019-02-23] MEDS: PREDNISONE 20 MG TABLET PO SCH (11:45)
[2019-02-23] MEDS: MULTIVITAMIN TABLET PO SCH (11:46)
[2019-02-23] MEDS: TIOTROPIUM BROMIDE DPI 5 CAP/KIT (18 MCG/CAP) IH SCH (11:46)
[2019-02-23] MEDS: LACTOBACILLUS ACIDOPHILUS 250 MG TAB PO SCH (11:46)
[2019-02-23] MEDS: NYSTATIN 500000 UNIT/5 ML UDCUP PO SCH ×2 (11:47→18:28)
[2019-02-23] MEDS: LACTULOSE SYRUP 20 GM/30 ML UDCUP PO SCH ×2 (11:47→21:23)
[2019-02-23] MEDS: FLUTICASONE NASAL SPRAY 50 MCG/SPRY 120 SPRAY/16 GM NASL SCH (11:47)
[2019-02-23] MEDS: FLUTICASONE/VILANTEROL 200-25 MCG/DOSE IH SCH (11:48)
[2019-02-23] MEDS: PANTOPRAZOLE SODIUM 40 MG VIAL IV SCH (11:48)
[2019-02-23] MEDS: ACYCLOVIR 800 MG TABLET PO SCH ×3 (11:53→18:28)
[2019-02-23] MEDS: VANCOMYCIN HCL 1,250 MG in DEXTROSE 5%-WATER 250 ML IV SCH (11:55)
[2019-02-23] MEDS ORDERED: MORPHINE SULFATE 10 MG/5 ML ORAL SOLUTION UDCUP PO PRN (12:00)
[2019-02-23] MEDS: VANCOMYCIN HCL 1,000 MG in DEXTROSE 5%-WATER 250 ML IV SCH (15:27)
--- NOTE | 2019-02-23 18:30 | ADVANCED CARE ---
Attendance: Myself patient and multiple family members. Resuscitation Status: Full Code Discussion: Discussed patient's progress throughout this hospital course. Patient doing much better at this time her abdominal pain is subsiding. Patient will switch to oral medications and will tested on clear liquids today. Patient states that her dry heaving is improved as well. Patient does have a non-occlusive thrombosis of her proximal SMA which she will need an outpatient vascular surgery consult for. Patient also developing thrush and fever blisters on her lips. Care Planning Goals: 1-acyclovir 800 g p.o. 3 times daily for fever blisters 2-nystatin swish and swallow 500,000 units every 6 hours 3-clear liquid diet 4-switch IV morphine to liquid morphine 5-encourage mobilization Time Spent: 20 minutes
[2019-02-23] MEDS: ATORVASTATIN CALCIUM 80 MG TABLET PO SCH (21:24)
[2019-02-23] MEDS: TICAGRELOR 90 MG TABLET PO SCH (22:15)
[2019-02-24] MEDS: LEVALBUTEROL HCL NEB 1.25 MG/3 ML AMPUL NEB SCH ×3 (00:20→16:11)
[2019-02-24] MEDS: IPRATROPIUM BROMIDE 0.02% NEB 0.5 MG/2.5 ML AMPUL NEB SCH ×3 (00:20→16:11)
[2019-02-24] MEDS: METRONIDAZOLE 500 MG/NS RTU 500 MG/100 ML RTUPB IV SCH ×3 (00:36→11:24)
[2019-02-24] MEDS: NYSTATIN 500000 UNIT/5 ML UDCUP PO SCH ×5 (00:36→23:37)
[2019-02-24] MEDS: VANCOMYCIN HCL 1,000 MG in DEXTROSE 5%-WATER 250 ML IV SCH ×2 (01:42→14:17)
[2019-02-24] MEDS: ONDANSETRON HCL INJ/PF 4 MG/2 ML SDV IV PRN (05:57)
[2019-02-24 08:44] LABS: HEMATOCRIT 27.1 % (36.0-47.0); HEMOGLOBIN 9.2 g/dL (12.0-15.5); MEAN CORPUSCULAR HEMOGLOBIN 29.7 pg (27.0-33.4); MEAN CORPUSCULAR HGB CONC 33.8 g/dL (32.0-36.0); MEAN CORPUSCULAR VOLUME 88 fl (80-97); PLATELET COUNT 513 10^3/uL (150-450); RED BLOOD COUNT 3.09 10^6/uL (3.72-5.28); RED CELL DISTRIBUTION WIDTH 15.2 % (11.5-14.0); WHITE BLOOD COUNT 14.6 10^3/uL (4.0-10.5)
[2019-02-24] MEDS: BUDESONIDE NEB 0.5 MG/2 ML AMPUL NEB SCH (08:55)
[2019-02-24 08:59] LABS: ANION GAP 6 (5-19); BLOOD UREA NITROGEN 11 mg/dL (7-20); CALCIUM 8.3 mg/dL (8.4-10.2); CARBON DIOXIDE 34 mmol/L (22-30); CHLORIDE 98 mmol/L (98-107); GLUCOSE 146 mg/dL (75-110); POTASSIUM 3.3 mmol/L (3.6-5.0); SODIUM 138.4 mmol/L (137-145)
[2019-02-24] MEDS: LACTULOSE SYRUP 20 GM/30 ML UDCUP PO SCH ×2 (09:09→21:19)
[2019-02-24] MEDS: ACYCLOVIR 800 MG TABLET PO SCH ×3 (09:09→17:31)
[2019-02-24] MEDS: PANTOPRAZOLE SODIUM 40 MG VIAL IV SCH (09:09)
[2019-02-24] MEDS: ASPIRIN 81 MG TABLET, CHEWABLE PO SCH (09:10)
[2019-02-24] MEDS: PREDNISONE 20 MG TABLET PO SCH (09:10)
[2019-02-24] MEDS: MULTIVITAMIN TABLET PO SCH (09:10)
[2019-02-24] MEDS: CEFEPIME 1 GM/D5W RTU 1 GM/50 ML RTUPB IV SCH (09:10)
[2019-02-24] MEDS: FLUTICASONE/VILANTEROL 200-25 MCG/DOSE IH SCH (09:10)
[2019-02-24] MEDS: LACTOBACILLUS ACIDOPHILUS 250 MG TAB PO SCH (09:10)
[2019-02-24] MEDS: TIOTROPIUM BROMIDE DPI 5 CAP/KIT (18 MCG/CAP) IH SCH (09:12)
[2019-02-24] MEDS: FLUTICASONE NASAL SPRAY 50 MCG/SPRY 120 SPRAY/16 GM NASL SCH (09:15)
[2019-02-24 09:17] LABS: ABSOLUTE LYMPHOCYTES# (MANUAL) 0.7 10^3/uL (0.5-4.7); BASOPHILS % (MANUAL) 0 % (0-2); EOSINOPHILS % (MANUAL) 0 % (0-6); LYMPHOCYTES % (MANUAL) 5 % (13-45); MONOCYTES % (MANUAL) 7 % (3-13); SEGMENTED NEUTROPHILS % (MAN) 88 % (42-78); TOTAL CELLS COUNTED 100
[2019-02-24 09:18] LABS: ANISOCYTOSIS SLIGHT; BURR CELLS SLIGHT; OVALOCYTES SLIGHT; PLATELET COMMENT INCREASED; POIKILOCYTOSIS SLIGHT; SCHISTOCYTES SLIGHT; TEAR DROP CELLS SLIGHT
[2019-02-24] MEDS ORDERED: POTASSIUM CHLORIDE 10 MEQ CAPSULE.ER PO ONE (09:35)
--- NOTE | 2019-02-24 16:16 | PDOC PROGRESS REPORT ---
Subjective Progress Note for:: 02/24/19 Subjective:: PAXTON ROGER is a 83 year old female with a past medical history significant for COPD, recent LA with one stent placed in November of this year, GERD, and obesity who presented to the emergency department today with a complaint of progressively worsening shortness of breath, fatigue, and generalized weakness. Evaluation in the emergency department revealed mild anemia (hemoglobin 8.5), WBC 10.5, thombocytosis 516 (like r/t recent cath and stent placement), unremark able chemistry with normal troponin and proBNP, Normal urine, but positive occult stool. The patient was noted to desaturate to 87% while resting on room air; she is not home O2 dependent. She is noted to have rhonchi and slight wheezing today. She is referred to the hospitalist service for admission and work-up of GI bleed and mild COPD exacerbation. 02/24/2019. No acute events overnight. Complaining of epigastric abdominal pain, having normal bowel movement, denies any fever, chills, nausea, vomiting, diarrhea, constipation or any urinary symptoms. Reason For Visit: BLOOD LOSS ANEMIA Physical Exam Vital Signs: Temp Pulse Resp BP Pulse Ox 98.3 F 70 18 108/54 L 95 02/24/19 11:07 02/24/19 11:07 02/24/19 11:07 02/24/19 11:07 02/24/19 11:07 Intake & Output 02/23/19 02/24/19 02/25/19 06:59 06:59 06:59 Intake Total 3570 2578 100 Output Total 1100 Balance 3570 1478 100 Weight 73.5 kg 75.6 kg General appearance: PRESENT: no acute distress, well-developed, well-nourished Head exam: PRESENT: atraumatic, normocephalic Neck exam: ABSENT: carotid bruit, JVD, lymphadenopathy, thyromegaly Respiratory exam: PRESENT: clear to auscultation zabrina. ABSENT: rales, rhonchi, wheezes Cardiovascular exam: PRESENT: RRR. ABSENT: diastolic murmur, rubs, systolic murmur GI/Abdominal exam: PRESENT: normal bowel sounds, tenderness - Epigastric. ABSENT: distended, guarding, mass, organolmegaly, rebound Extremities exam: PRESENT: full ROM, +1 edema - Right lower extremity.. ABSENT: calf tenderness, clubbing, pedal edema Musculoskeletal exam: PRESENT: tenderness - Bilateral lower extremity. Neurological exam: PRESENT: alert, awake, oriented to person, oriented to place, oriented to time, oriented to situation, CN II-XII grossly intact. ABSENT: motor sensory deficit Results Laboratory Results: 02/24/19 08:30 02/24/19 08:30 02/24/19 02/24/19 08:30 08:30 WBC 14.6 H RBC 3.09 L Hgb 9.2 L Hct 27.1 L MCV 88 MCH 29.7 MCHC 33.8 RDW 15.2 H Plt Count 513 H Seg Neutrophils % Not Reportable Lymphocytes % Not Reportable Monocytes % Not Reportable Eosinophils % Not Reportable Basophils % Not Reportable Absolute Neutrophils Not Reportable Absolute Lymphocytes Not Reportable Absolute Monocytes Not Reportable Absolute Eosinophils Not Reportable Absolute Basophils Not Reportable Sodium 138.4 Potassium 3.3 L Chloride 98 Carbon Dioxide 34 H Anion Gap 6 BUN 11 Creatinine 0.58 Est GFR ( Amer) > 60 Est GFR (Non-Af Amer) > 60 Glucose 146 H Calcium 8.3 L 02/16/19 02/16/19 02/16/19 12:30 12:30 12:30 Creatine Kinase 89 CK-MB (CK-2) 1.13 Troponin I < 0.012 NT-Pro-B Natriuret Pep 284 Impressions: Barium Enema w/ Air Contrast, therapeutic 02/18/19 09:00 IMPRESSION: SIGMOID DIVERTICULOSIS DESCRIBED ABOVE. NO IDENTIFIABLE MASSES OR LESIONS CAN BE SEEN WITHIN THE SIGMOID COLON. MILDLY DILATED CECUM THAT IS MOBILE, EXTENDING ACROSS THE MIDLINE OF THE LOWER PELVIS. Chest X-Ray 02/19/19 00:00 IMPRESSION: Small bilateral pleural effusions and basilar atelectasis left greater than right. Overall findings are slightly improved compared to prior exam. Venous Doppler Study 02/20/19 00:00 IMPRESSION: NO EVIDENCE DVT OR SVT IN EITHER LEG. Head CT 02/21/19 00:00 IMPRESSION: CHRONIC CHANGES OF ATROPHY AND MICROVASCULAR ISCHEMIA. NO ACUTE PROCESS. EVIDENCE OF ACUTE STROKE: NO. Abdomen/Pelvis CT 02/22/19 00:00 IMPRESSION: 1. 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 2. Diverticulosis without evidence of diverticulitis. 3. Left lower lobe atelectasis or pneumonia. Clinical correlation is needed. Ankle X-Ray 02/22/19 00:00 IMPRESSION: Degenerative changes. No acute findings. KUB X-Ray 02/22/19 00:00 IMPRESSION: Residual barium distal descending colon to the rectum. Assessment and Plan - Diagnosis (1) MSSA bacteremia Is this a current diagnosis for this admission?: Yes Plan: Blood cultures 02/19/2019 positive for MSSA 2/2. Blood culture on 02/22/2019 no growth. Antibiotics day 6. Received doxycycline on 02/19/2019 x1 dose. Received cefepime 02/20/2019 to 02/24/2019. Received Flagyl 02/21/2019 to 02/24/2019. Received vancomycin 02/20/2019 x1 dose. Received vancomycin . Received acyclovir . 02/24/2019. DC cefepime, DC Flagyl, DC acyclovir. Continue IV vancomycin for another 12 days. Day 2/14 days of IV vancomycin. TTE to rule out endocarditis. If TTE negative we will place a PICC line and DC patient home on IV antibiotics for total of 14 days starting from last negative blood culture. (2) UTI (urinary tract infection) due to Enterococcus Is this a current diagnosis for this admission?: Yes Plan: Urine culture from 02/19/2019 came back positive for Enterococcus faecalis sensitive to penicillins, Macrobid, vancomycin. Antibiotics day 6. Received doxycycline on 02/19/2019 x1 dose. Received cefepime 02/20/2019 to 02/24/2019. Received Flagyl 02/21/2019 to 02/24/2019. Received vancomycin 02/20/2019 x1 dose. Received vancomycin . Received acyclovir . 02/24/2019. DC cefepime, DC Flagyl, DC acyclovir. Continue IV vancomycin. (3) Herpes labialis Is this a current diagnosis for this admission?: Yes Plan: History of recurrent herpes labialis. Day 2/5 of Acyclovir 800 mg p.o. 3 times daily. Continue contact precautions. (4) Thrush of mouth and esophagus Is this a current diagnosis for this admission?: Yes Plan: This could be secondary to prolonged inhaled steroids for underlying COPD. Patient was counseled on proper use of inhaled glucocorticoids. Day 2 of nystatin swish and swallow 500,000 units every 6 hours (5) Abdominal pain Qualifiers: Abdominal location: generalized Qualified Code(s): R10.84 - Generalized abdominal pain Is this a current diagnosis for this admission?: Yes Plan: Improving. Continue PRN opiates, PRN antiemetics. 02/22/2019. KUB residual barium distal descending colon to the rectum. 02/22/2019. 1. 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 2. Diverticulosis without evidence of diverticulitis. 02/18/2019. Barium enema with air-contrast. Depression, sigmoid diverticulosis, no identifiable masses or lesions can be seen within the sigmoid colon. Mildly dilated cecum that is mobile, extending across the midline of the lower pelvis. 02/17/2019. EGD: No source of bleeding identified in the upper endoscopy. Colonoscopy: No source of bleed identified in the endoscopy except for large multiple sigmoid diverticuli. (6) Acute exacerbation of chronic obstructive pulmonary disease Is this a current diagnosis for this admission?: Yes Plan: Will dependent on supplemental oxygen. SPO2 WNL on 3 L NC. Not on home O2. Hypoxic on admission. Presented with acute mild COPD exacerbation was noted to have rhonchi and slight wheeze on exam. DuoNeb's, PRN BiPAP, steroids, LABA's/LAMA's. Outpatient PCP and pulmonology follow-up. (7) CVA (cerebral vascular accident) Is this a current diagnosis for this admission?: Yes Plan: Ruled out. Negative focal neurological deficit. CT head negative. (8) Right ankle pain Is this a current diagnosis for this admission?: Yes Plan: 02/22/2019-patient complaining of right ankle pain. Apparently the other day while getting a study she came back and complained of this right ankle pain. Its red and warm to touch. At this time we will get a full ankle series to determine if there is pathology for this ankle pain. Patient is already on pain management we will continue this. (9) Iron deficiency anemia Qualifiers: Iron deficiency anemia type: chronic blood loss Qualified Code(s): D50.0 - Iron deficiency anemia secondary to blood loss (chronic) Is this a current diagnosis for this admission?: Yes Plan: H&H stable. EGD colonoscopy negative for any acute bleeds. Barium enema with air-contrast negative for any masses. Continue monitor H&H, continue ferrous sulfate. Supportive transfusions. Patient may benefit from capsule enteroscopy as outpatient to rule out any small bowel source of bleeding. 02/22/2019. KUB residual barium distal descending colon to the rectum. 02/22/2019. 1. 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 2. Diverticulosis without evidence of diverticulitis. 02/18/2019. Barium enema with air-contrast. Depression, sigmoid diverticulosis, no identifiable masses or lesions can be seen within the sigmoid colon. Mildly dilated cecum that is mobile, extending across the midline of the lower pelvis. 02/17/2019. EGD: No source of bleeding identified in the upper endoscopy. Colonoscopy: No source of bleed identified in the endoscopy except for large multiple sigmoid diverticuli. 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 Status post PCI x1 stent November 2018. Patient was placed on Brilinta and aspirin. Per patient Brilinta had to be DC'd due to side effects. As per patient soa integration architect is aware. Patient was counseled on importance of DAPT post PCI and stent and she is very adamant about not starting Brilinta again. She states she will not take any other medication except for aspirin and statins until seen by her soa integration architect. Continue aspirin, statins.
[2019-02-24] MEDS: METRONIDAZOLE 500 MG TABLET PO SCH ×2 (17:30→23:37)
[2019-02-24] MEDS: FERROUS SULFATE 325 MG TABLET PO SCH (17:33)
[2019-02-24] MEDS: ATORVASTATIN CALCIUM 80 MG TABLET PO SCH (21:20)
[2019-02-24] MEDS ORDERED: IPRATROPIUM/ALBUTEROL 0.5-2.5 MG/3 ML AMPUL NEB PRN (23:01)
[2019-02-24] MEDS ORDERED: CHLORPHENIRAMINE MALEATE 4 MG TABLET ONE (23:18)
[2019-02-24] MEDS: CHLORPHENIRAMINE MALEATE 4 MG TABLET PO SCH (23:31)
--- NOTE | 2019-02-24 23:42 | RADIOLOGY REPORT (SQ) ---
EXAM DESCRIPTION: XR CHEST 1 VIEW COMPLETED DATE/TME: 02/24/2019 00:00 CLINICAL HISTORY: 83 years, Female, sob COMPARISON: 02/19/2019 chest NUMBER OF VIEWS: 1 TECHNIQUE: Portable chest LIMITATIONS: None. FINDINGS: Heart size is normal. Atheromatous change thoracic aorta. Osteopenia. No pneumothorax. Small bibasilar effusions. IMPRESSION: Small bibasilar effusions copyright 2010 [employer]- All Rights Reserved
[2019-02-24 23:55] LABS: CREATINE KINASE MB 1.42 ng/mL (<4.55); NT PRO BNP 2500 pg/mL (<450)
[2019-02-24 23:56] LABS: TROPONIN I < 0.012 ng/mL
[2019-02-25] MEDS: LEVALBUTEROL HCL NEB 1.25 MG/3 ML AMPUL NEB SCH ×2 (00:28→08:31)
[2019-02-25] MEDS: IPRATROPIUM BROMIDE 0.02% NEB 0.5 MG/2.5 ML AMPUL NEB SCH ×2 (00:28→08:31)
[2019-02-25] MEDS: IPRATROPIUM/ALBUTEROL 0.5-2.5 MG/3 ML AMPUL NEB SCH ×4 (00:29→20:12)
[2019-02-25] MEDS: MAG HYDROX/AL HYDROX/SIMETH SUSP 30 ML UDCUP PO PRN (02:27)
[2019-02-25] MEDS: VANCOMYCIN HCL 1,000 MG in DEXTROSE 5%-WATER 250 ML IV SCH ×2 (02:34→15:08)
[2019-02-25] MEDS: CHLORPHENIRAMINE MALEATE 4 MG TABLET PO SCH ×3 (05:16→18:30)
[2019-02-25] MEDS: NYSTATIN 500000 UNIT/5 ML UDCUP PO SCH ×3 (05:17→18:20)
[2019-02-25] MEDS: METRONIDAZOLE 500 MG TABLET PO SCH ×3 (05:17→18:20)
[2019-02-25 06:26] LABS: ABSOLUTE BASOPHILS # (AUTO) 0.1 10^3/uL (0.0-0.2); ABSOLUTE EOSINOPHILS # (AUTO) 0.1 10^3/uL (0.0-0.6); ABSOLUTE LYMPHOCYTES (AUTO) 1.9 10^3/uL (0.5-4.7); ABSOLUTE MONOCYTES (AUTO) 1.8 10^3/uL (0.1-1.4); ABSOLUTE NEUT (AUTO) 10.5 10^3/uL (1.7-8.2); BASOPHILS % (AUTO) 0.5 % (0-2); EOSINOPHILS % (AUTO) 0.6 % (0-6); HEMATOCRIT 25.7 % (36.0-47.0); HEMOGLOBIN 8.4 g/dL (12.0-15.5); LYMPHOCYTES % (AUTO) 13.4 % (13-45); MEAN CORPUSCULAR HEMOGLOBIN 28.7 pg (27.0-33.4); MEAN CORPUSCULAR HGB CONC 32.7 g/dL (32.0-36.0); MEAN CORPUSCULAR VOLUME 88 fl (80-97); MONOCYTES % (AUTO) 12.3 % (3-13); PLATELET COUNT 505 10^3/uL (150-450); RED BLOOD COUNT 2.93 10^6/uL (3.72-5.28); RED CELL DISTRIBUTION WIDTH 15.4 % (11.5-14.0); SEGMENTED NEUTROPHILS % (AUTO) 73.2 % (42-78); TOTAL CELLS COUNTED % (AUTO) 100 %; WHITE BLOOD COUNT 14.4 10^3/uL (4.0-10.5)
[2019-02-25 06:46] LABS: ANION GAP 6 (5-19); BLOOD UREA NITROGEN 12 mg/dL (7-20); CALCIUM 8.2 mg/dL (8.4-10.2); CARBON DIOXIDE 33 mmol/L (22-30); CHLORIDE 99 mmol/L (98-107); CREATINE KINASE 37 U/L (30-135); GLUCOSE 111 mg/dL (75-110); POTASSIUM 3.5 mmol/L (3.6-5.0); SODIUM 138.1 mmol/L (137-145)
[2019-02-25 06:56] LABS: CREATINE KINASE MB 1.51 ng/mL (<4.55); TROPONIN I 0.016 ng/mL
[2019-02-25] MEDS ORDERED: MAGNESIUM SULFATE/D5W 1 GM/100 ML RTUPB IV ONE (07:56)
[2019-02-25] MEDS: LACTULOSE SYRUP 20 GM/30 ML UDCUP PO SCH ×2 (09:31→23:03)
[2019-02-25] MEDS: MULTIVITAMIN TABLET PO SCH (09:32)
[2019-02-25] MEDS: ASPIRIN 81 MG TABLET, CHEWABLE PO SCH (09:32)
[2019-02-25] MEDS: LACTOBACILLUS ACIDOPHILUS 250 MG TAB PO SCH (09:32)
[2019-02-25] MEDS: FERROUS SULFATE 325 MG TABLET PO SCH (09:32)
[2019-02-25] MEDS: ACYCLOVIR 800 MG TABLET PO SCH ×3 (09:38→18:21)
[2019-02-25] MEDS: FLUTICASONE NASAL SPRAY 50 MCG/SPRY 120 SPRAY/16 GM NASL SCH ×2 (09:38→23:00)
[2019-02-25] MEDS: FLUTICASONE/VILANTEROL 200-25 MCG/DOSE IH SCH (09:39)
[2019-02-25] MEDS ORDERED: DICYCLOMINE HCL 10 MG CAPSULE PO ONE (10:35)
[2019-02-25] MEDS ORDERED: POLYETHYLENE GLYCOL 3350 POWDER 17 GM/1 PACKET PO ONE (10:40)
--- NOTE | 2019-02-25 10:46 | PDOC PROGRESS REPORT ---
Subjective Progress Note for:: 02/25/19 Subjective:: PAXTON ROGER is a 83 year old female with a past medical history significant for COPD, recent [place] with one stent placed in November of this year, GERD, and obesity who presented to the emergency department today with a complaint of progressively worsening shortness of breath, fatigue, and generalized weakness. Evaluation in the emergency department revealed mild anemia (hemoglobin 8.5), WBC 10.5, thombocytosis 516 (like r/t recent cath and stent placement), unremark able chemistry with normal troponin and proBNP, Normal urine, but positive occult stool. The patient was noted to desaturate to 87% while resting on room air; she is not home O2 dependent. She is noted to have rhonchi and slight wheezing today. She is referred to the hospitalist service for admission and work-up of GI bleed and mild COPD exacerbation. 02/24/2019. No acute events overnight. Complaining of epigastric abdominal pain, having normal bowel movement, denies any fever, chills, nausea, vomiting, diarrhea, constipation or any urinary symptoms. 02/25/2019. Complaining of generalized abdominal pain, constipation, bilateral lower extremity swelling. Denies any shortness of breath, chills, chest pain, nausea, vomiting, diarrhea or any urinary symptoms. Reason For Visit: BLOOD LOSS ANEMIA Physical Exam Vital Signs: Temp Pulse Resp BP Pulse Ox 98.3 F 78 20 115/70 95 02/25/19 08:26 02/25/19 08:26 02/25/19 08:26 02/25/19 08:26 02/25/19 08:26 Intake & Output 02/24/19 02/25/19 02/26/19 06:59 06:59 06:59 Intake Total 2578 2475 Output Total 1100 1450 Balance 1478 1025 Weight 75.6 kg 77.3 kg General appearance: PRESENT: no acute distress, well-developed, well-nourished Head exam: PRESENT: atraumatic, normocephalic Respiratory exam: PRESENT: clear to auscultation zabrina. ABSENT: rales, rhonchi, wheezes Cardiovascular exam: PRESENT: RRR. ABSENT: diastolic murmur, rubs, systolic murmur GI/Abdominal exam: PRESENT: normal bowel sounds, soft, tenderness - Epigastric. ABSENT: distended, guarding, mass, organolmegaly, rebound Extremities exam: PRESENT: full ROM. ABSENT: calf tenderness, clubbing, pedal edema Neurological exam: PRESENT: alert, awake, oriented to person, oriented to place, oriented to time, oriented to situation, CN II-XII grossly intact. ABSENT: motor sensory deficit Results Laboratory Results: 02/25/19 05:11 02/25/19 05:11 02/25/19 02/25/19 05:11 05:11 WBC 14.4 H RBC 2.93 L Hgb 8.4 L Hct 25.7 L MCV 88 MCH 28.7 MCHC 32.7 RDW 15.4 H Plt Count 505 H Seg Neutrophils % 73.2 Lymphocytes % 13.4 Monocytes % 12.3 Eosinophils % 0.6 Basophils % 0.5 Absolute Neutrophils 10.5 H Absolute Lymphocytes 1.9 Absolute Monocytes 1.8 H Absolute Eosinophils 0.1 Absolute Basophils 0.1 Sodium 138.1 Potassium 3.5 L Chloride 99 Carbon Dioxide 33 H Anion Gap 6 BUN 12 Creatinine 0.65 Est GFR ( Amer) > 60 Est GFR (Non-Af Amer) > 60 Glucose 111 H Calcium 8.2 L 02/16/19 02/16/19 02/16/19 12:30 12:30 12:30 Creatine Kinase 89 CK-MB (CK-2) 1.13 Troponin I < 0.012 NT-Pro-B Natriuret Pep 284 02/24/19 02/24/19 02/25/19 23:13 23:13 05:11 Creatine Kinase 45 37 CK-MB (CK-2) 1.42 Troponin I < 0.012 NT-Pro-B Natriuret Pep 2500 H 02/25/19 05:11 Creatine Kinase CK-MB (CK-2) 1.51 Troponin I 0.016 NT-Pro-B Natriuret Pep Impressions: Barium Enema w/ Air Contrast, therapeutic 02/18/19 09:00 IMPRESSION: SIGMOID DIVERTICULOSIS DESCRIBED ABOVE. NO IDENTIFIABLE MASSES OR LESIONS CAN BE SEEN WITHIN THE SIGMOID COLON. MILDLY DILATED CECUM THAT IS MOBILE, EXTENDING ACROSS THE MIDLINE OF THE LOWER PELVIS. Venous Doppler Study 02/20/19 00:00 IMPRESSION: NO EVIDENCE DVT OR SVT IN EITHER LEG. Head CT 02/21/19 00:00 IMPRESSION: CHRONIC CHANGES OF ATROPHY AND MICROVASCULAR ISCHEMIA. NO ACUTE PROCESS. EVIDENCE OF ACUTE STROKE: NO. Abdomen/Pelvis CT 02/22/19 00:00 IMPRESSION: 1. 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 2. Diverticulosis without evidence of diverticulitis. 3. Left lower lobe atelectasis or pneumonia. Clinical correlation is needed. Ankle X-Ray 02/22/19 00:00 IMPRESSION: Degenerative changes. No acute findings. KUB X-Ray 02/22/19 00:00 IMPRESSION: Residual barium distal descending colon to the rectum. Chest X-Ray 02/24/19 00:00 IMPRESSION: Small bibasilar effusions copyright 2010 [employer]- All Rights Reserved Assessment and Plan - Diagnosis (1) MSSA bacteremia Is this a current diagnosis for this admission?: Yes Plan: Blood cultures 02/19/2019 positive for MSSA 2/2. Blood culture on 02/22/2019 no growth. Antibiotics day 7. Received doxycycline on 02/19/2019 x1 dose. Received cefepime 02/20/2019 to 02/24/2019. Received Flagyl 02/21/2019 to 02/24/2019. Received vancomycin 02/20/2019 x1 dose. Received vancomycin . Received acyclovir . 02/24/2019. DC cefepime, DC Flagyl, DC acyclovir. Continue IV vancomycin for another 12 days. Day 3/14 days of IV vancomycin. TTE to rule out endocarditis. Echo done, pending results. If TTE negative we will place a PICC line and DC patient home on IV antibiotics for total of 14 days starting from last negative blood culture. (2) UTI (urinary tract infection) due to Enterococcus Is this a current diagnosis for this admission?: Yes Plan: Urine culture from 02/19/2019 came back positive for Enterococcus faecalis sensitive to penicillins, Macrobid, vancomycin. Antibiotics day 6. Received doxycycline on 02/19/2019 x1 dose. Received cefepime 02/20/2019 to 02/24/2019. Received Flagyl 02/21/2019 to 02/24/2019. Received vancomycin 02/20/2019 x1 dose. Received vancomycin . Received acyclovir . 02/24/2019. DC cefepime, DC Flagyl, DC acyclovir. Continue IV vancomycin. (3) Herpes labialis Is this a current diagnosis for this admission?: Yes Plan: Much improved. Oral lesions crusted over. History of recurrent herpes labialis. Day 3/5 of Acyclovir 800 mg p.o. 3 times daily. Continue contact precautions. (4) Thrush of mouth and esophagus Is this a current diagnosis for this admission?: Yes Plan: This could be secondary to prolonged inhaled steroids for underlying COPD. Patient was counseled on proper use of inhaled glucocorticoids. Day 3 of nystatin swish and swallow 500,000 units every 6 hours (5) Abdominal pain Qualifiers: Abdominal location: generalized Qualified Code(s): R10.84 - Generalized abdominal pain Is this a current diagnosis for this admission?: Yes Plan: Improving. Continue PRN opiates, PRN antiemetics. 02/22/2019. KUB residual barium distal descending colon to the rectum. 02/22/2019. 1. 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 2. Diverticulosis without evidence of diverticulitis. 02/18/2019. Barium enema with air-contrast. Impression: Sigmoid diverticulosis, no identifiable masses or lesions can be seen within the sigmoid colon. Mildly dilated cecum that is mobile, extending across the midline of the lower pelvis. 02/17/2019. EGD: No source of bleeding identified in the upper endoscopy. Colonoscopy: No source of bleed identified in the endoscopy except for large multiple sigmoid diverticuli. (6) Acute exacerbation of chronic obstructive pulmonary disease Is this a current diagnosis for this admission?: Yes Plan: Will dependent on supplemental oxygen. SPO2 WNL on 3 L NC. Not on home O2. Hypoxic on admission. Presented with acute mild COPD exacerbation was noted to have rhonchi and slight wheeze on exam. DuoNeb's, PRN BiPAP, steroids, LABA's/LAMA's. Outpatient PCP and pulmonology follow-up. (7) CVA (cerebral vascular accident) Is this a current diagnosis for this admission?: Yes Plan: Ruled out. Negative focal neurological deficit. CT head negative. (8) Right ankle pain Is this a current diagnosis for this admission?: Yes Plan: Likely explained ankle. Patient is stating that she twisted her ankle while receiving physical therapy while here inpatient. Mild Swelling and TTP of Rt Ankle joint. NROM. NV intact. Right ankle x-ray negative for any fractures. BLE US negative for DVT. Continue supportive measures. (9) Iron deficiency anemia Qualifiers: Iron deficiency anemia type: chronic blood loss Qualified Code(s): D50.0 - Iron deficiency anemia secondary to blood loss (chronic) Is this a current diagnosis for this admission?: Yes Plan: H&H stable. EGD colonoscopy negative for any acute bleeds. Barium enema with air-contrast negative for any masses. Continue monitor H&H, continue ferrous sulfate. Supportive transfusions. Patient may benefit from capsule enteroscopy as outpatient to rule out any small bowel source of bleeding. 02/22/2019. KUB residual barium distal descending colon to the rectum. 02/22/2019. 1. 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 2. Diverticulosis without evidence of diverticulitis. 02/18/2019. Barium enema with air-contrast. Depression, sigmoid diverticulosis, no identifiable masses or lesions can be seen within the sigmoid colon. Mildly dilated cecum that is mobile, extending across the midline of the lower pelvis. 02/17/2019. EGD: No source of bleeding identified in the upper endoscopy. Colonoscopy: No source of bleed identified in the endoscopy except for large multiple sigmoid diverticuli. (10) Coronary artery disease Qualifiers: Coronary Disease-Associated Artery/Lesion type: [place] artery Is this a current diagnosis for this admission?: Yes Plan: Denies any anginal symptoms. Status post PCI x1 stent November 2018. Patient was placed on Brilinta and aspirin. Per patient Brilinta had to be DC'd due to side effects. As per patient temperature logging operator is aware. Patient was counseled on importance of DAPT post PCI and stent and she is very adamant about not starting Brilinta again. She states she will not take any other medication except for aspirin and statins until seen by her temperature logging operator. Continue aspirin, statins.
[2019-02-25 11:59] LABS: CREATINE KINASE MB 1.37 ng/mL (<4.55); TROPONIN I 0.017 ng/mL
--- NOTE | 2019-02-25 13:31 | XCELERA REPORT ---
[address] [address] Transthoracic Echocardiogram Report Name: PAXTON ROGER Age: 83 yrs Gender: Female : 1935 Patient Status: Inpatient Patient Location: [address] [place] [address] Study Date: 02/24/2019 06:52 PM Height: 62 in Weight: 166 lb BSA: 1.8 m2 Procedure: A two-dimensional transthoracic echocardiogram with color flow and Doppler was performed. The study was technically difficult with many images being suboptimal in quality. Images were not obtained from all of the standard acoustic windows due to the limited scope of the study. Reason For Study: MSSA bacteremia History: MSSA bacteremia / Endocarditis. Ordering Physician: GIA CANNON Performed By: Aileen Dubon Interpretation Summary No gross vegetatations een,but not a good study for this.Recommend GILBERT. The left ventricle is normal in size. There is normal left ventricular wall thickness. No True apical 2 chamber views obtained.Hence cannot comment on the apical anterior , the basal anterior, the basal inferior and apical inferior pani[place].The mid anterior , the mid inferior and the rest of the LV pani[place] contract normally. . LVEF is normal and is greater than 60% in the limited views. Doppler measurements suggest impaired left ventricular relaxation, which is associated with grade I/IV or mild diastolic dysfunction There is no thrombus. No ASD,VSD,or PFO seen The right ventricle is mild to moderately dilated. There is mild right ventricular hypertrophy. The right ventricular systolic function is normal. The right atrium is normal. The left atrial size is normal. There is no evidence of mitral valve prolapse. There is no mitral valve stenosis. There is no vegetation seen on the mitral valve. There is a trace amount of mitral regurgitation There is no aortic valvular vegetation. There is no aortic valve stenosis No aortic regurgitation is present. There is no tricuspid stenosis. There is a mild to moderate amount of tricuspid regurgitation There is mild to moderate pulmonary hypertension by echo RVSP is 41 to 51 with RA mean of 10 to 15. There is no pulmonic valvular stenosis. There is no pulmonic valvular regurgitation. The aortic root is normal size. The inferior vena cava appeared normal and decreased < 50% with respiration (RAP 10-15 mmHg) There is no pericardial effusion. No gross vegetatations een,but not a good study for this.Recommend GILBERT. MMode/2D Measurements & Calculations RVDd: 2.9 cm LVIDd: 4.5 cm FS: 34.3 % Ao root diam: 2.5 cm IVSd: 1.1 cm LVIDs: 3.0 cm EDV(Teich): Ao root area: LVPWd: 0.79 cm 92.2 ml 5.1 cm2 ESV(Teich): LA dimension: 3.1 cm 33.7 ml EF(Teich): 63.4 % LVLd ap4: 6.6 cm SV(MOD-sp4): EDV(MOD-sp4): 58.0 ml 96.0 ml LVLs ap4: 4.8 cm ESV(MOD-sp4): 38.0 ml EF(MOD-sp4): 60.4 % Doppler Measurements & Calculations MV E max maia: Ao V2 max: LV V1 max PG: PA V2 max: 143.3 cm/sec 140.1 cm/sec 5.1 mmHg 118.3 cm/sec MV A max maia: Ao max P.8 mmHg LV V1 max: PA max P.2 cm/sec 113.0 cm/sec 5.6 mmHg MV E/A: 0.93 TR max maia: MV P1/2t-pr_phl: 301.3 cm/sec 43.3 msec TR max P.3 mmHg Left Ventricle The left ventricle is normal in size. There is normal left ventricular wall thickness. No True apical 2 chamber views obtained.Hence cannot comment on the apical anterior , the basal anterior, the basal inferior and apical inferior pani[place].The mid anterior , the mid inferior and the rest of the LV [place] contract normally. . LVEF is normal and is greater than 60% in the limited views. Doppler measurements suggest impaired left ventricular relaxation, which is associated with grade I/IV or mild diastolic dysfunction. There is no thrombus. No ASD,VSD,or PFO seen. Right Ventricle The right ventricle is mild to moderately dilated. There is mild right ventricular hypertrophy. The right ventricular systolic function is normal. Atria The right atrium is normal. The left atrial size is normal. Mitral Valve There is no evidence of mitral valve prolapse. There is no vegetation seen on the mitral valve. There is no mitral valve stenosis. There is a trace amount of mitral regurgitation. Aortic Valve There is no aortic valvular vegetation. There is no aortic valve stenosis. No aortic regurgitation is present. Tricuspid Valve There is no tricuspid stenosis. There is a mild to moderate amount of tricuspid regurgitation. There is mild to moderate pulmonary hypertension by echo. RVSP is 41 to 51 with RA mean of 10 to 15. Pulmonic Valve There is no pulmonic valvular stenosis. There is no pulmonic valvular regurgitation. Great Vessels The aortic root is normal size. The inferior vena cava appeared normal and decreased < 50% with respiration (RAP 10-15 mmHg). Effusions There is no pericardial effusion. : GIA CANNON > Erica Gallo
[2019-02-25] MEDS ORDERED: IPRATROPIUM/ALBUTEROL 0.5-2.5 MG/3 ML AMPUL NEB SCH (14:00)
--- NOTE | 2019-02-25 15:01 | RADIOLOGY REPORT (SQ) ---
EXAM DESCRIPTION: PICC INSERTION; U/S GUIDE FOR VASCULAR ACCESS; FLUORO/CV PLACEMENT COMPLETED DATE/TIME: 02/25/2019 2:38 pm REASON FOR STUDY: IV antibiotics; IV ABX K29.80 DUODENITIS WITHOUT BLEEDING K22.11 ULCER OF ESOPHA LENNY WITH BLEEDING COMPARISON: None. FLUOROSCOPY TIME: 44 seconds 2 images saved to PACS. TECHNIQUE: Fluoroscopic and ultrasound guided PICC placement. LIMITATIONS: None. PROCEDURE: After written consent and assessment were obtained, the patient was brought into the fluo roscopy room and placed supine on the table. Ultrasound evaluation of potential access sites were per formed. After successfully identifying a patent right basilic vein, the right arm was prepped and stevenson ped in a sterile fashion along with the ultrasound probe. The entry site was anesthetized with 1% lid ocaine. A 21 gauge 7 cm needle was advanced through the skin and into the basilic vein under live ult rasound guidance. An ultrasound image was saved to PACS confirming access site. A .018 guide wire w as then inserted through the needle and into the venous system. The needle was then removed and an 11 blade scalpel was used to make a 1cm skin incision. A 5 fr peel-away sheath was advanced over the w oyly and into the venous system. A measurement was then made using the existing wire and live fluorosc opic guidance. The wire was then removed and trimmed. The PICC was advanced through the peel-away she ath and into the venous system. The peel-away sheath was removed and the catheter was adhered to the patients arm with a stat lock. The catheter was then aspirated and flushed and a sterile bandage was placed over the access site. A fluoroscopic spot image was saved to PACS confirming the catheter tip within the superior vena cava. IMPRESSION: SUCCESSFUL PLACEMENT OF A 5 FR DUAL LUMEN 35 CM PICC IN THE RIGHT BASILIC VEIN. COMMENT: Patient medication list reviewed: Yes- Quality ID# 130:Eligible professional attests to doc umenting in the medical record they obtained, updated, or reviewed the patient's current medications. . Quality ID 145: Final reports for procedures using fluoroscopy that document radiation exposure verona neetu, or exposure time and number of fluorographic images (if radiation exposure indices are not avail able) Quality ID #76: The patient was prepped and draped using maximum sterile barrier technique including cap, mask, sterile gown, sterile gloves, a large sterile sheet, hand hygiene, and 2% Chlorhexidine fo r cutaneous antisepsis. When ultrasound is used, sterile ultrasound techniques are followed requiring sterile gel and sterile probes. TECHNICAL DOCUMENTATION: JOB ID: [id number] [employer]- All Rights Reserved rev-12/27 Reading location - IP/workstation name: [email or web address]
--- NOTE | 2019-02-25 15:01 | RADIOLOGY REPORT (SQ) ---
EXAM DESCRIPTION: PICC INSERTION; U/S GUIDE FOR VASCULAR ACCESS; FLUORO/CV PLACEMENT COMPLETED DATE/TIME: 02/25/2019 2:38 pm REASON FOR STUDY: IV antibiotics; IV ABX K29.80 DUODENITIS WITHOUT BLEEDING K22.11 ULCER OF ESOPHA LNENY WITH BLEEDING COMPARISON: None. FLUOROSCOPY TIME: 44 seconds 2 images saved to PACS. TECHNIQUE: Fluoroscopic and ultrasound guided PICC placement. LIMITATIONS: None. PROCEDURE: After written consent and assessment were obtained, the patient was brought into the fluo roscopy room and placed supine on the table. Ultrasound evaluation of potential access sites were per formed. After successfully identifying a patent right basilic vein, the right arm was prepped and stevenson ped in a sterile fashion along with the ultrasound probe. The entry site was anesthetized with 1% lid ocaine. A 21 gauge 7 cm needle was advanced through the skin and into the basilic vein under live ult rasound guidance. An ultrasound image was saved to PACS confirming access site. A .018 guide wire w as then inserted through the needle and into the venous system. The needle was then removed and an 11 blade scalpel was used to make a 1cm skin incision. A 5 fr peel-away sheath was advanced over the w yoly and into the venous system. A measurement was then made using the existing wire and live fluorosc opic guidance. The wire was then removed and trimmed. The PICC was advanced through the peel-away she ath and into the venous system. The peel-away sheath was removed and the catheter was adhered to the patients arm with a stat lock. The catheter was then aspirated and flushed and a sterile bandage was placed over the access site. A fluoroscopic spot image was saved to PACS confirming the catheter tip within the superior vena cava. IMPRESSION: SUCCESSFUL PLACEMENT OF A 5 FR DUAL LUMEN 35 CM PICC IN THE RIGHT BASILIC VEIN. COMMENT: Patient medication list reviewed: Yes- Quality ID# 130:Eligible professional attests to doc umenting in the medical record they obtained, updated, or reviewed the patient's current medications. . Quality ID 145: Final reports for procedures using fluoroscopy that document radiation exposure verona neetu, or exposure time and number of fluorographic images (if radiation exposure indices are not avail able) Quality ID #76: The patient was prepped and draped using maximum sterile barrier technique including cap, mask, sterile gown, sterile gloves, a large sterile sheet, hand hygiene, and 2% Chlorhexidine fo r cutaneous antisepsis. When ultrasound is used, sterile ultrasound techniques are followed requiring sterile gel and sterile probes. TECHNICAL DOCUMENTATION: JOB ID: [id number] [employer] All Rights Reserved rev-12/27 Reading location - IP/workstation name: [email or web address]
[2019-02-25] MEDS: TIOTROPIUM BROMIDE DPI 5 CAP/KIT (18 MCG/CAP) IH SCH (15:06)
[2019-02-25 16:20] LABS: VANCOMYCIN,TROUGH 13.5 ug/mL (5.0-20.0)
[2019-02-25] MEDS ORDERED: NORMAL SALINE 10 ML SDV (AFTER EACH USE) IV PRN (18:00)
[2019-02-25] MEDS: DICYCLOMINE HCL 10 MG CAPSULE PO PRN (18:20)
[2019-02-25] MEDS: ATORVASTATIN CALCIUM 80 MG TABLET PO SCH (23:02)
[2019-02-25] MEDS: VANCOMYCIN HCL 1,250 MG in DEXTROSE 5%-WATER 250 ML IV SCH (23:11)
[2019-02-25] MEDS: NORMAL SALINE 10 ML SDV (SCHEDULED) IV SCH (23:11)
[2019-02-26] MEDS: NYSTATIN 500000 UNIT/5 ML UDCUP PO SCH ×2 (00:21→06:53)
[2019-02-26] MEDS: METRONIDAZOLE 500 MG TABLET PO SCH ×2 (00:21→06:53)
[2019-02-26 07:44] LABS: HEMATOCRIT 26.8 % (36.0-47.0); HEMOGLOBIN 8.8 g/dL (12.0-15.5); MEAN CORPUSCULAR HEMOGLOBIN 28.8 pg (27.0-33.4); MEAN CORPUSCULAR HGB CONC 32.9 g/dL (32.0-36.0); MEAN CORPUSCULAR VOLUME 88 fl (80-97); PLATELET COUNT 523 10^3/uL (150-450); RED BLOOD COUNT 3.06 10^6/uL (3.72-5.28); RED CELL DISTRIBUTION WIDTH 15.2 % (11.5-14.0); WHITE BLOOD COUNT 11.1 10^3/uL (4.0-10.5)
[2019-02-26 07:47] LABS: ALANINE AMINOTRANSFERASE 40 U/L (9-52); ALBUMIN 2.4 g/dL (3.5-5.0); ALKALINE PHOSPHATASE 72 U/L (38-126); ASPARTATE AMINO TRANSFERASE 40 U/L (14-36); BILIRUBIN,DIRECT 0.2 mg/dL (0.0-0.4); BILIRUBIN,TOTAL 0.4 mg/dL (0.2-1.3); BLOOD UREA NITROGEN 7 mg/dL (7-20); CALCIUM 8.1 mg/dL (8.4-10.2); CHLORIDE 93 mmol/L (98-107); GLUCOSE 95 mg/dL (75-110); POTASSIUM 3.6 mmol/L (3.6-5.0); SODIUM 137.3 mmol/L (137-145); TOTAL PROTEIN 5.1 g/dL (6.3-8.2)
[2019-02-26] MEDS: IPRATROPIUM/ALBUTEROL 0.5-2.5 MG/3 ML AMPUL NEB SCH ×3 (07:55→19:56)
[2019-02-26 07:58] LABS: ANION GAP 2 (5-19)
[2019-02-26 07:59] LABS: CARBON DIOXIDE 42 mmol/L (22-30)
[2019-02-26 08:10] LABS: ABSOLUTE LYMPHOCYTES# (MANUAL) 1.8 10^3/uL (0.5-4.7); BAND NEUTROPHILS % (MANUAL) 1 % (3-5); BASOPHILS % (MANUAL) 0 % (0-2); EOSINOPHILS % (MANUAL) 0 % (0-6); LYMPHOCYTES % (MANUAL) 16 % (13-45); METAMYELOCYTES % (MANUAL) 1 % (0); MONOCYTES % (MANUAL) 9 % (3-13); SEGMENTED NEUTROPHILS % (MAN) 73 % (42-78); TOTAL CELLS COUNTED 100
[2019-02-26 08:11] LABS: ANISOCYTOSIS SLIGHT; PLATELET COMMENT INCREASED
[2019-02-26] MEDS: LACTULOSE SYRUP 20 GM/30 ML UDCUP PO SCH ×2 (09:36→22:18)
[2019-02-26] MEDS: POLYETHYLENE GLYCOL 3350 POWDER 17 GM/1 PACKET PO SCH (10:12)
[2019-02-26] MEDS: FLUTICASONE NASAL SPRAY 50 MCG/SPRY 120 SPRAY/16 GM NASL SCH ×2 (10:13→22:26)
[2019-02-26] MEDS: TIOTROPIUM BROMIDE DPI 5 CAP/KIT (18 MCG/CAP) IH SCH (10:14)
[2019-02-26] MEDS: LACTOBACILLUS ACIDOPHILUS 250 MG TAB PO SCH (10:16)
[2019-02-26] MEDS: FERROUS SULFATE 325 MG TABLET PO SCH (10:17)
[2019-02-26] MEDS: ASPIRIN 81 MG TABLET, CHEWABLE PO SCH (10:17)
[2019-02-26] MEDS: MULTIVITAMIN TABLET PO SCH (10:17)
[2019-02-26] MEDS: FLUTICASONE/VILANTEROL 200-25 MCG/DOSE IH SCH (10:17)
[2019-02-26] MEDS: ACYCLOVIR 800 MG TABLET PO SCH ×3 (10:17→17:51)
[2019-02-26] MEDS: DICYCLOMINE HCL 10 MG CAPSULE PO PRN (10:17)
[2019-02-26] MEDS: NORMAL SALINE 10 ML SDV (SCHEDULED) IV SCH ×3 (10:18→22:28)
[2019-02-26] MEDS: VANCOMYCIN HCL 1,250 MG in DEXTROSE 5%-WATER 250 ML IV SCH (10:18)
[2019-02-26 11:25] LABS: ARTERIAL BLOOD BASE EXCESS 13.8 mmol/L; ARTERIAL BLOOD H2CO3 1.74 mmol/L (1.05-1.35); ARTERIAL BLOOD HCO3 40.5 mmol/L (20-24); ARTERIAL BLOOD O2 SATURATION 96.5 % (94-98); ARTERIAL BLOOD PCO2 57.8 mmHg (35-45); ARTERIAL BLOOD PH 7.46 (7.35-7.45); ARTERIAL BLOOD PO2 83.5 mmHg (80-100); ARTERIAL BLOOD TOTAL CO2 42.2 mmol/L (21-25)
[2019-02-26 11:26] LABS: ARTERIAL BLOOD FIO2 3L
--- NOTE | 2019-02-26 13:57 | Progress Note ---
Provider Note Provider Note: ID Consult - Brief Note Asked to review patient's chart by Pharmacy. Pt not seen or examined. In short, pt has community onset of MSSA bacteremia and is currently receiving IV vancomycin. Vancomycin is inferior in the treatment of MSSA bacteremia when an appropriate beta-lactam can be administered. Although she has penicillin listed as an allergy in her chart, no specific reaction is listed, there is no similar side chain between penicillin and Ancef, and she has tolerated another cephalosporin cefepime. Would switch from IV vancomycin to Ancef 2 grams q8h IV. Would also try to get a better history of what the penicillin allergy is also, considering that >90% of penicillin allergies are not true IgE mediated reactions, and even among those that are IgE mediated, 80% of patients become tolerant over 10 years after the exposure. Ceasar Vaca [facility] Infectious Diseases pager [phone]
--- NOTE | 2019-02-26 16:29 | PDOC PROGRESS REPORT ---
Subjective Progress Note for:: 02/26/19 Subjective:: PAXTON ROGER is a 83 year old female with a past medical history significant for COPD, recent NV with one stent placed in November of this year, GERD, and obesity who presented to the emergency department today with a complaint of progressively worsening shortness of breath, fatigue, and generalized weakness. Evaluation in the emergency department revealed mild anemia (hemoglobin 8.5), WBC 10.5, thombocytosis 516 (like r/t recent cath and stent placement), unremark able chemistry with normal troponin and proBNP, Normal urine, but positive occult stool. The patient was noted to desaturate to 87% while resting on room air; she is not home O2 dependent. She is noted to have rhonchi and slight wheezing today. She is referred to the hospitalist service for admission and work-up of GI bleed and mild COPD exacerbation. 02/24/2019. No acute events overnight. Complaining of epigastric abdominal pain, having normal bowel movement, denies any fever, chills, nausea, vomiting, diarrhea, constipation or any urinary symptoms. 02/25/2019. Complaining of generalized abdominal pain, constipation, bilateral lower extremity swelling. Denies any shortness of breath, chills, chest pain, nausea, vomiting, diarrhea or any urinary symptoms. 02/26/2019. Complaining of chronic back pain, abdominal pain has resolved, complaining of right ankle pain. Denies any fever, chills, nausea, vomiting, diarrhea, constipation or any urinary symptoms. Patient was sent home tomorrow once oxygen supplies were ready. Reason For Visit: BLOOD LOSS ANEMIA Physical Exam Vital Signs: Temp Pulse Resp BP Pulse Ox 97.9 F 74 18 115/56 L 96 02/26/19 12:42 02/26/19 14:00 02/26/19 13:45 02/26/19 12:42 02/26/19 13:45 Intake & Output 02/25/19 02/26/19 02/27/19 06:59 06:59 06:59 Intake Total 2475 400 250 Output Total 1450 2400 Balance 1025 -2000 250 Weight 77.3 kg 75.6 kg General appearance: PRESENT: no acute distress, obese, well-developed, well- nourished Head exam: PRESENT: atraumatic, normocephalic Eye exam: PRESENT: conjunctiva pink, EOMI, PERRLA. ABSENT: scleral icterus Ear exam: PRESENT: normal external ear exam Mouth exam: PRESENT: moist, tongue midline Neck exam: ABSENT: carotid bruit, JVD, lymphadenopathy, thyromegaly Respiratory exam: PRESENT: clear to auscultation zabrina. ABSENT: rales, rhonchi, wheezes Cardiovascular exam: PRESENT: RRR. ABSENT: diastolic murmur, rubs, systolic murmur Pulses: PRESENT: normal dorsalis pedis pul Vascular exam: PRESENT: normal capillary refill GI/Abdominal exam: PRESENT: normal bowel sounds, soft. ABSENT: distended, g uarding, mass, organolmegaly, rebound, tenderness Rectal exam: PRESENT: deferred Extremities exam: PRESENT: full ROM, tenderness - Right ankle.. ABSENT: calf tenderness, clubbing, pedal edema Neurological exam: PRESENT: alert, awake, oriented to person, oriented to place, oriented to time, oriented to situation, CN II-XII grossly intact. ABSENT: motor sensory deficit Psychiatric exam: PRESENT: appropriate affect, normal mood. ABSENT: homicidal ideation, suicidal ideation Skin exam: PRESENT: dry, intact, warm. ABSENT: cyanosis, rash Results Laboratory Results: 02/26/19 06:55 02/26/19 06:55 02/26/19 02/26/19 02/26/19 06:55 06:55 09:55 WBC 11.1 H RBC 3.06 L Hgb 8.8 L Hct 26.8 L MCV 88 MCH 28.8 MCHC 32.9 RDW 15.2 H Plt Count 523 H Seg Neutrophils % Not Reportable Lymphocytes % Not Reportable Monocytes % Not Reportable Eosinophils % Not Reportable Basophils % Not Reportable Absolute Neutrophils Not Reportable Absolute Lymphocytes Not Reportable Absolute Monocytes Not Reportable Absolute Eosinophils Not Reportable Absolute Basophils Not Reportable Carbonic Acid 1.74 H HCO3/H2CO3 Ratio 23:1 ABG pH 7.46 H ABG pCO2 57.8 H ABG pO2 83.5 ABG HCO3 40.5 H ABG O2 Saturation 96.5 ABG Base Excess 13.8 FiO2 3L Sodium 137.3 Potassium 3.6 Chloride 93 L Carbon Dioxide 42 H* Anion Gap 2 L BUN 7 Creatinine 0.58 Est GFR ( Amer) > 60 Est GFR (Non-Af Amer) > 60 Glucose 95 Calcium 8.1 L Magnesium 1.9 Total Bilirubin 0.4 AST 40 H ALT 40 Alkaline Phosphatase 72 Total Protein 5.1 L Albumin 2.4 L 02/16/19 02/16/19 02/16/19 12:30 12:30 12:30 Creatine Kinase 89 CK-MB (CK-2) 1.13 Troponin I < 0.012 NT-Pro-B Natriuret Pep 284 02/24/19 02/24/19 02/25/19 23:13 23:13 05:11 Creatine Kinase 45 37 CK-MB (CK-2) 1.42 Troponin I < 0.012 NT-Pro-B Natriuret Pep 2500 H 02/25/19 02/25/19 05:11 11:08 Creatine Kinase CK-MB (CK-2) 1.51 1.37 Troponin I 0.016 0.017 NT-Pro-B Natriuret Pep Impressions: Barium Enema w/ Air Contrast, therapeutic 02/18/19 09:00 IMPRESSION: SIGMOID DIVERTICULOSIS DESCRIBED ABOVE. NO IDENTIFIABLE MASSES OR LESIONS CAN BE SEEN WITHIN THE SIGMOID COLON. MILDLY DILATED CECUM THAT IS MOBILE, EXTENDING ACROSS THE MIDLINE OF THE LOWER PELVIS. Venous Doppler Study 02/20/19 00:00 IMPRESSION: NO EVIDENCE DVT OR SVT IN EITHER LEG. Head CT 02/21/19 00:00 IMPRESSION: CHRONIC CHANGES OF ATROPHY AND MICROVASCULAR ISCHEMIA. NO ACUTE PROCESS. EVIDENCE OF ACUTE STROKE: NO. Abdomen/Pelvis CT 02/22/19 00:00 IMPRESSION: 1. 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 2. Diverticulosis without evidence of diverticulitis. 3. Left lower lobe atelectasis or pneumonia. Clinical correlation is needed. Ankle X-Ray 02/22/19 00:00 IMPRESSION: Degenerative changes. No acute findings. KUB X-Ray 02/22/19 00:00 IMPRESSION: Residual barium distal descending colon to the rectum. Chest X-Ray 02/24/19 00:00 IMPRESSION: Small bibasilar effusions copyright 2011 [employer]- All Rights Reserved Guidance Fluoroscopy 02/25/19 00:00 IMPRESSION: SUCCESSFUL PLACEMENT OF A 5 FR DUAL LUMEN 35 CM PICC IN THE RIGHT BASILIC VEIN. Interventional Vascular Procedure 02/25/19 00:00 IMPRESSION: SUCCESSFUL PLACEMENT OF A 5 FR DUAL LUMEN 35 CM PICC IN THE RIGHT BASILIC VEIN. PICC Line Insertion 02/25/19 00:00 IMPRESSION: SUCCESSFUL PLACEMENT OF A 5 FR DUAL LUMEN 35 CM PICC IN THE RIGHT BASILIC VEIN. Assessment and Plan - Diagnosis (1) MSSA bacteremia Is this a current diagnosis for this admission?: Yes Plan: Blood cultures 02/19/2019 positive for MSSA 2/2. Blood culture on 02/22/2019 no growth. 02/26/2018. Dr. Vaca ID specialist has reviewed the chart and recommending patient to be switched to Ancef. Antibiotics day 8. Received doxycycline on 02/19/2019 x1 dose. Received cefepime 02/20/2019 to 02/24/2019. Received Flagyl 02/21/2019 to 02/24/2019. Received vancomycin 02/20/2019 x1 dose. Received vancomycin . Received acyclovir . 02/24/2019. DC cefepime, DC Flagyl, DC acyclovir and vancomycin. Day 08/23 IV Ancef. DC vancomycin as per ID specialist recommendation. Refer to note. TTE negative for endocarditis. PICC line in place. Patient will be sent home with IV antibiotics. (2) COPD (chronic obstructive pulmonary disease) Is this a current diagnosis for this admission?: Yes Plan: Dependent on supplemental oxygen. SPO2 WNL on 3 L NC. Not on home O2. Hypoxic on admission. Plan is to send home on supplemental oxygen. Pending oxygen supplies. Presented with acute mild COPD exacerbation was noted to have rhonchi and slight wheeze on exam. DuoNeb's, PRN BiPAP, steroids, LABA's/LAMA's. Outpatient PCP and pulmonology follow-up. (3) UTI (urinary tract infection) due to Enterococcus Is this a current diagnosis for this admission?: Yes Plan: Urine culture from 02/19/2019 came back positive for Enterococcus faecalis sensitive to penicillins, Macrobid, vancomycin. Antibiotics day 6. Received doxycycline on 02/19/2019 x1 dose. Received cefepime 02/20/2019 to 02/24/2019. Received Flagyl 02/21/2019 to 02/24/2019. Received vancomycin 02/20/2019 x1 dose. Received vancomycin . Received acyclovir . 02/24/2019. DC cefepime, DC Flagyl, DC acyclovir. Received a complete course of IV antibiotics. (4) Herpes labialis Is this a current diagnosis for this admission?: Yes Plan: Much improved. Oral lesions crusted over. History of recurrent herpes labialis. Day 4/5 of Acyclovir 800 mg p.o. 3 times daily. Continue contact precautions. (5) Thrush of mouth and esophagus Is this a current diagnosis for this admission?: Yes Plan: This could be secondary to prolonged inhaled steroids for underlying COPD. Patient was counseled on proper use of inhaled glucocorticoids. Day 4 of nystatin swish and swallow 500,000 units every 6 hours (6) Abdominal pain Qualifiers: Abdominal location: generalized Qualified Code(s): R10.84 - Generalized abdominal pain Is this a current diagnosis for this admission?: Yes Plan: Resolved. Continue PRN opiates, PRN antiemetics. 02/22/2019. KUB residual barium distal descending colon to the rectum. 02/22/2019. 1. 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 2. Diverticulosis without evidence of diverticulitis. 02/18/2019. Barium enema with air-contrast. Impression: Sigmoid diverticulosis, no identifiable masses or lesions can be seen within the sigmoid colon. Mildly dilated cecum that is mobile, extending across the midline of the lower pelvis. 02/17/2019. EGD: No source of bleeding identified in the upper endoscopy. Colonoscopy: No source of bleed identified in the endoscopy except for large multiple sigmoid diverticuli. (7) CVA (cerebral vascular accident) Is this a current diagnosis for this admission?: Yes Plan: Ruled out. Negative focal neurological deficit. CT head negative. (8) Right ankle pain Is this a current diagnosis for this admission?: Yes Plan: Likely sprained ankle. Patient is stating that she twisted her ankle while receiving physical therapy while here inpatient. Improving. Mild Swelling and TTP of Rt Ankle joint. NROM. NV intact. Right ankle x-ray negative for any fractures. BLE US negative for DVT. Continue supportive measures. (9) Iron deficiency anemia Qualifiers: Iron deficiency anemia type: chronic blood loss Qualified Code(s): D50.0 - Iron deficiency anemia secondary to blood loss (chronic) Is this a current diagnosis for this admission?: Yes Plan: H&H stable. EGD colonoscopy negative for any acute bleeds. Barium enema with air-contrast negative for any masses. Continue monitor H&H, continue ferrous sulfate. Supportive transfusions. Patient may benefit from capsule enteroscopy as outpatient to rule out any small bowel source of bleeding. 02/22/2019. KUB residual barium distal descending colon to the rectum. 02/22/2019. 1. 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 2. Diverticulosis without evidence of diverticulitis. 02/18/2019. Barium enema with air-contrast. Depression, sigmoid diverticulosis, no identifiable masses or lesions can be seen within the sigmoid colon. Mildly dilated cecum that is mobile, extending across the midline of the lower pelvis. 02/17/2019. EGD: No source of bleeding identified in the upper endoscopy. Colonoscopy: No source of bleed identified in the endoscopy except for large multiple sigmoid diverticuli. (10) Coronary artery disease Qualifiers: Coronary Disease-Associated Artery/Lesion type: [place] artery Is this a current diagnosis for this admission?: Yes Plan: Denies any anginal symptoms. Status post PCI x1 stent November 2018. Patient was placed on Brilinta and aspirin. Per patient Brilinta had to be DC'd due to side effects. As per patient [employer] system admin is aware. Patient was counseled on importance of DAPT post PCI and stent and she is very adamant about not starting Brilinta again. She states she will not take any other medication except for aspirin and statins until seen by her windows system admin. Continue aspirin, statins. 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 Patient updated on counselled and advised to follow-up with vascular specialist however patient states that she does not want to do anything about it at this point.
[2019-02-26] MEDS: CEFAZOLIN SODIUM 2 GM in DEXTROSE 5%-WATER 100 ML IV SCH (17:51)
[2019-02-26] MEDS: ATORVASTATIN CALCIUM 80 MG TABLET PO SCH (22:19)
[2019-02-27] MEDS: CEFAZOLIN SODIUM 2 GM in DEXTROSE 5%-WATER 100 ML IV SCH ×2 (04:40→12:29)
[2019-02-27] MEDS: IPRATROPIUM/ALBUTEROL 0.5-2.5 MG/3 ML AMPUL NEB SCH ×2 (07:55→13:46)
[2019-02-27 09:32] LABS: ABSOLUTE BASOPHILS # (AUTO) 0.1 10^3/uL (0.0-0.2); ABSOLUTE EOSINOPHILS # (AUTO) 0.2 10^3/uL (0.0-0.6); ABSOLUTE LYMPHOCYTES (AUTO) 1.4 10^3/uL (0.5-4.7); ABSOLUTE NEUT (AUTO) 8.5 10^3/uL (1.7-8.2); BASOPHILS % (AUTO) 0.5 % (0-2); EOSINOPHILS % (AUTO) 2.2 % (0-6); HEMATOCRIT 26.5 % (36.0-47.0); HEMOGLOBIN 8.7 g/dL (12.0-15.5); LYMPHOCYTES % (AUTO) 12.5 % (13-45); MEAN CORPUSCULAR HEMOGLOBIN 28.9 pg (27.0-33.4); MEAN CORPUSCULAR VOLUME 88 fl (80-97); MONOCYTES % (AUTO) 8.6 % (3-13); PLATELET COUNT 494 10^3/uL (150-450); RED BLOOD COUNT 3.02 10^6/uL (3.72-5.28); RED CELL DISTRIBUTION WIDTH 15.3 % (11.5-14.0); SEGMENTED NEUTROPHILS % (AUTO) 76.2 % (42-78); TOTAL CELLS COUNTED % (AUTO) 100 %; WHITE BLOOD COUNT 11.2 10^3/uL (4.0-10.5)
[2019-02-27 09:53] LABS: BLOOD UREA NITROGEN 8 mg/dL (7-20); CALCIUM 8.1 mg/dL (8.4-10.2); CHLORIDE 91 mmol/L (98-107); GLUCOSE 170 mg/dL (75-110); POTASSIUM 3.5 mmol/L (3.6-5.0); SODIUM 135.4 mmol/L (137-145)
[2019-02-27 09:58] LABS: VANCOMYCIN,TROUGH 8.4 ug/mL (5.0-20.0)
[2019-02-27 10:00] LABS: ANION GAP 5 (5-19); CARBON DIOXIDE 39 mmol/L (22-30)
[2019-02-27] MEDS: LACTULOSE SYRUP 20 GM/30 ML UDCUP PO SCH (10:30)
[2019-02-27] MEDS: FLUTICASONE/VILANTEROL 200-25 MCG/DOSE IH SCH (10:37)
[2019-02-27] MEDS: POLYETHYLENE GLYCOL 3350 POWDER 17 GM/1 PACKET PO SCH (10:37)
[2019-02-27] MEDS: ACYCLOVIR 800 MG TABLET PO SCH ×2 (10:38→14:35)
[2019-02-27] MEDS: FLUTICASONE NASAL SPRAY 50 MCG/SPRY 120 SPRAY/16 GM NASL SCH (10:38)
[2019-02-27] MEDS: LACTOBACILLUS ACIDOPHILUS 250 MG TAB PO SCH (10:38)
[2019-02-27] MEDS: TIOTROPIUM BROMIDE DPI 5 CAP/KIT (18 MCG/CAP) IH SCH (10:39)
[2019-02-27] MEDS: MULTIVITAMIN TABLET PO SCH (10:41)
[2019-02-27] MEDS: FERROUS SULFATE 325 MG TABLET PO SCH (10:41)
[2019-02-27] MEDS: ASPIRIN 81 MG TABLET, CHEWABLE PO SCH (10:42)
[2019-02-27] MEDS: NORMAL SALINE 10 ML SDV (SCHEDULED) IV SCH (12:30)
[2019-02-27 15:23] VITALS: BP 115/56
== END 2019-02-27 15:45 | disposition home health service (06) | DRG 377 ==
LOC: ER 12:06 → INTOOBSV 18:21 → EH 18:21 → 4W 02-17 02:33 → OBSVTOIN 02-17 16:49 → 5 02-18 14:31 → 3W 02-21 15:32
PROVIDERS: ADMIT Internal Medicine; ATTEND Internal Medicine
PROC: 0DJD8ZZ Inspection of Lower Intestinal Tract, Via Natural or Artificial Opening Endoscopic (ICD-10-PCS; principal; 2019-02-17 16:30)
PROC: 0DJ08ZZ Inspection of Upper Intestinal Tract, Via Natural or Artificial Opening Endoscopic (ICD-10-PCS; 2019-02-17 16:30)
PROC: 30233N1 Transfusion of Nonautologous Red Blood Cells into Peripheral Vein, Percutaneous Approach (ICD-10-PCS; 2019-02-18)
PROC: 02HV33Z Insertion of Infusion Device into Superior Vena Cava, Percutaneous Approach (ICD-10-PCS; 2019-02-26)
DX: K57.31 Diverticulosis of large intestine without perforation or abscess with bleeding (principal); K55.069 Acute infarction of intestine, part and extent unspecified; J44.1 Chronic obstructive pulmonary disease with (acute) exacerbation; L03.114 Cellulitis of left upper limb; B37.81 Candidal esophagitis; B37.0 Candidal stomatitis; R78.81 Bacteremia; N39.0 Urinary tract infection, site not specified; D50.0 Iron deficiency anemia secondary to blood loss (chronic); Z88.5 Allergy status to narcotic agent; Z88.1 Allergy status to other antibiotic agents; Z88.0 Allergy status to penicillin; Z88.2 Allergy status to sulfonamides; I25.10 Atherosclerotic heart disease of native coronary artery without angina pectoris; I25.2 Old myocardial infarction; E78.5 Hyperlipidemia, unspecified; Z95.5 Presence of coronary angioplasty implant and graft; G44.209 Tension-type headache, unspecified, not intractable; E66.9 Obesity, unspecified; K44.9 Diaphragmatic hernia without obstruction or gangrene; K63.5 Polyp of colon; K64.8 Other hemorrhoids; R47.81 Slurred speech; R29.810 Facial weakness; B95.61 Methicillin susceptible Staphylococcus aureus infection as the cause of diseases classified elsewhere; B95.2 Enterococcus as the cause of diseases classified elsewhere; B00.1 Herpesviral vesicular dermatitis
CPT/HCPCS: 00813; 36415; 36430; 36569; 36600; 43235; 45378; 70450; 71045; 74018; 74177; 74280; 76937; 77001; 80048; 80053; 80202; 81001; 82550; 82553; 82803; 83605; 83690; 83735; 83880; 84484; 85025; 85027; 85610; 85652; 85730; 86140; 86850; 86900; 86901; 86920; 87040; 87077; 87086; 87088; 87186; 87493; 93005; 93010; 93306; 93970; 94660; 94799; 96365; 96375; 99291; G0378; J0690; J0692; J0780; J1170; J1200; J1642; J1885; J1940; J2060; J2250; J2270; J2370; J2405; J2550; J2704; J3010; J3370; J3475; J3490; J7030; J7040; J7060; J7120; J7512; J7620; P9016; S0119; S0164